=== PATIENT | male | born 1945 | race Caucasian/White ===

== ENCOUNTER 2016-09-14 11:28 | Inpatient (IN) | payer MEDICARE ==
[~2016-09-14] VITALS: Ht 157.5 cm; Wt 59.9 kg
[~2016-09-14 11:28] MED LIST: ALBU8.5H5 IH; AMLO-147 PO; ASP81 PO; ATOR80TA75 PO; BUDE6HFA IH; ISOS30TA5 PO; OMEP20CA16 PO; PROP40TA4 PO; SIMV10TA76 PO
--- NOTE | 2016-09-14 13:33 | ERA ---
ER Documentation Chief Complaint Date/Time DATE: 09/14/16 TIME: 13:32 Chief Complaint SYNCOPAL EPISODE TODAY WITH SOB HPI The patient is a 70-year-old male, presenting to the ER because of fainting and shortness of breath. He had 3 episodes of fainting last week and again this morning. He denies fever, chills, cough, neck pain, chest pain, palpitation, diaphoresis. He complains of chronic dyspnea, denies abdominal pain, vomiting, dysuria, diarrhea. He smoke a pack a day, denies drinking Past medical history: Dyslipidemia, hypertension, CAD, COPD, GERD, essential tremors, anemia Past surgical history: Appendectomy, hemorrhoidectomy ROS All systems reviewed and are negative except as per history of present illness. Medications Home Meds Active Scripts Isosorbide Mononitrate* (Isosorbide Mononitrate*) 30 Mg Tab.er.24h, 30 MG PO DAILY for 30 Days, 2 Refills Prov:KENIA SINGLETARY Hawa 06/19/16 Amlodipine Besylate* (Amlodipine Besylate*) 10 Mg Tablet, 10 MG PO DAILY for 30 Days, TAB 1 Refill Prov:HAYDERROHIT BourgeoisATRI[facility] . 06/19/16 Reported Medications Simvastatin* (Zocor*) 10 Mg Tablet, 10 MG PO HS, TAB 07/10/15 Budesonide-Formoterol Fumarate* (Symbicort*) 160-4.5 Hfa.aer.ad, 2 PUFF IH BID, INH 07/10/15 Albuterol Sulfate* (Albuterol Sulfate* HFA) 8.5 Gm Hfa.aer.ad, 2 PUFF IH Q4H Y for WHEEZING AND SOB, EA 07/10/15 Omeprazole* (Omeprazole*) 20 Mg Capsule.dr, 20 MG PO DAILY, CAP 07/10/15 Discontinued Scripts Propranolol Hcl* (Propranolol Hcl*) 40 Mg Tablet, 40 MG PO TID for 30 Days, TAB 1 Refill Prov:KENIA SINGLETARY Hawa 06/19/16 Atorvastatin* (Atorvastatin*) 80 Mg Tablet, 80 MG PO DAILY@21 for 30 Days, TAB 2 Refills Prov:ROHIT SINGLETARYATRI[facility] . 06/19/16 Aspirin (Aspirin) 81 Mg Chew, 81 MG PO DAILY for 30 Days, TAB 2 Refills Prov:KENIA SINGLETARYHawa 06/19/16 Allergies Allergies: Coded Allergies: Penicillins (Verified Allergy, Severe, ANAPHYLAXIS, 09/14/16) PMhx/Soc History of Surgery: No Anesthesia Reaction: No Hx Neurological Disorder: No Hx Respiratory Disorders: Yes (SOB) Hx Cardiac Disorders: Yes (HTN, HIGH CHOLESTEROL, CAD) Hx Psychiatric Problems: No Hx Miscellaneous Medical Probl: Yes (HTN, HLP, COPD, GERD.) Hx Alcohol Use: No Hx Substance Use: Yes (cocaine quit in the 90"s) Hx Tobacco Use: Yes Physical Exam Vitals Vital Signs Date Time Temp Pulse Resp B/P Pulse Ox O2 Delivery O2 Flow Rate FiO2 09/14/16 15:30 97.9 69 18 193/98 98 Room Air 09/14/16 14:07 88 22 97 21 09/14/16 13:47 68 20 178/89 98 Room Air 09/14/16 11:31 98.7 92 22 204/97 93 Physical Exam Const: No acute distress. Head: Atraumatic. Eyes: Normal Conjunctiva. ENT: Normal External Ears, Nose and Mouth. Neck: Full range of motion. No meningismus. Resp: Bilateral expiratory wheezes Cardio: Regular rate and rhythm, no murmurs. Abd: Soft, non distended, normal bowel sounds, non tender. Skin: No petechiae or rashes. Back: No midline or flank tenderness. Ext: No cyanosis, or edema. Neur: Awake and alert. No focal deficit Psych: Normal Mood and Affect. Result Diagram: 09/14/16 1344 09/14/16 1344 Results 24 hrs Laboratory Tests Test 09/14/16 13:44 09/14/16 14:15 09/14/16 15:13 09/14/16 15:32 Activated Partial Thromboplast Time 24.7Sec Anion Gap 28 Basophils # 0.010^3/ul Basophils % 0.4% Blood Morphology Comment Blood Urea Nitrogen 17mg/dl Calcium Level 8.8mg/dl Carbon Dioxide Level 20mmol/L Chloride Level 98mmol/L Creatinine 1.13mg/dl Eosinophils # 0.010^3/ul Eosinophils % 0.3% Ethyl Alcohol Level 65.0mg/dl Glucose Level 37mg/dl Hematocrit 40.3% Hemoglobin 13.6g/dl INR International Normalized Ratio 0.92 Lymphocytes # 1.410^3/ul Lymphocytes % 18.8% Mean Corpuscular Hemoglobin 34.0pg Mean Corpuscular Hemoglobin Concent 33.6g/dl Mean Corpuscular Volume 101.2fl Mean Platelet Volume 8.1fl Monocytes # 0.510^3/ul Monocytes % 6.2% Neutrophils # 5.510^3/ul Neutrophils % 74.3% Nucleated Red Blood Cells # 0.010^3/ul Nucleated Red Blood Cells % 0.0/100WBC Platelet Count 26682^3/UL Potassium Level 4.6mmol/L Prothrombin Time 12.4Sec Prothrombin Time Ratio 1.0 Red Blood Count 3.9810^6/ul Red Cell Distribution Width 15.0% Sodium Level 141mmol/L Troponin I 0.069ng/ml White Blood Count 7.410^3/ul Bedside Glucose 40mg/dL 148mg/dL Urine Amphetamines Screen NEGATIVE Urine Barbiturates NEGATIVE Urine Benzodiazepines Screen NEGATIVE Urine Cannabinoids NEGATIVE Urine Cocaine Screen NEGATIVE Urine Opiates Screen NEGATIVE Test 09/14/16 18:36 Bedside Glucose 97mg/dL Current Medications Medications (Trade) Dose Ordered Sig/Wally Route PRN Reason Start Time Stop Time Status Last Admin Dose Admin Levalbuterol (Xopenex Neb) 1.25 mg ONCE ONCE N 09/14/16 14:00 09/14/16 14:01 DC 09/14/16 14:06 Ipratropium [place] (Atrovent 0.02% (Neb)) 0.5 mg ONCE ONCE HHN 09/14/16 14:00 09/14/16 14:01 DC 09/14/16 14:06 Enalaprilat (Vasotec Iv) 1.25 mg ONCE ONCE IV 09/14/16 14:00 09/14/16 14:01 DC 09/14/16 14:03 Dextrose (D50w Syringe) 50 ml NOW PRN IV DECREASED GLUCOSE 09/14/16 14:30 09/14/16 14:18 IV Flush (NS 3 ml) 3 ml PER PROTOCOL IV 09/14/16 17:30 UNV Ondansetron HCl (Zofran Inj) 4 mg Q6H PRN IV NAUSEA AND/OR VOMITING 09/14/16 17:30 UNV Acetaminophen (Tylenol Tab) 650 mg Q6H PRN PO PAIN LEVEL 1-3 OR FEVER 09/14/16 17:30 UNV Acetaminophen/ Hydrocodone Bitart ([place] (5/325)) 1 tab Q6H PRN PO MODERATE PAIN LEVEL 4-6 09/14/16 17:30 UNV Morphine Sulfate (morphine) 2 mg Q4H PRN IV SEVERE PAIN LEVEL 7-10 09/14/16 17:30 UNV Docusate Sodium (Colace) 100 mg Q12H PRN PO CONSTIPATION 09/14/16 17:30 UNV Magnesium Hydroxide (Milk Of Mag) 30 ml DAILY PRN PO CONSTIPATION 09/14/16 17:30 UNV Sodium Biphosphate/ Sodium Phosphate (Fleet Enema) 133 ml DAILY PRN [place] CONSTIPATION 09/14/16 17:30 UNV Famotidine (Pepcid) 20 mg Q12 PO 09/14/16 21:00 UNV Heparin Sodium (Porcine) (Heparin (5000 Units/0.5 ml)) 5,000 unit Q12 SC 09/14/16 21:00 UNV Ondansetron HCl 4 mg 4 mg Q6H PRN IV NAUSEA AND/OR VOMITING 09/14/16 17:30 UNV Sodium Chloride (1/2 NS) 1,000 ml @ 75 mls/hr [id number] IV 09/14/16 17:21 UNV Lorazepam (Ativan) 0.5 mg Q6H PRN IV ANXIETY 09/14/16 17:30 UNV Albuterol/ Ipratropium (Duoneb) 3 ml Q4H RESP THERAPY PRN HHN SHORTNESS OF BREATH 09/14/16 17:30 UNV Hydralazine HCl (Apresoline) 10 mg Q6H PRN IV ELEVATED BLOOD PRESSURE 09/14/16 17:30 UNV Nitroglycerin (Nitroglycerin (Sl Tab) 0.4 Mg) 1 tab Q5M PRN SL ANGINA 09/14/16 17:30 UNV Albuterol (Ventolin Hfa) 2 puff Q4H PRN INH WHEEZING AND SOB 09/14/16 17:30 UNV Miscellaneous Information 2 puff BID IH 09/14/16 21:00 UNV Miscellaneous Information 10 mg HS PO 09/14/16 21:00 UNV Procedures/MDM EKG: Read by emergency physician Rate/Rhythm: Normal Sinus Rhythm 77 beats per min QRS, ST, T-waves: No ST elevation, no T wave inversion, shortened [place] interval , inferior and lateral t abnormality Impression: Abnormal EKG [place] [id number] Radiology Main Line: [phone] DIAGNOSTIC IMAGING REPORT Patient: KERRIE SCHAEFER : 1945 Age: 70 Sex: M MR #: [id number] DOS: 09/14/16 1339 Ordering MD: ORTEGA HUGHES MD Location: E/R Room/Bed: PROCEDURE: CT Brain without. CLINICAL INDICATION: Syncope. TECHNIQUE: A CT of the brain was performed on multidetector high-resolution CT scanner utilizing axial sections from the skull base through the vertex without contrast. The scan was reviewed in soft tissue brain and high frequency resolution bone algorithm windows. Images were reviewed on a high- resolution PACS workstation. The exam CTDI = 44.4 mGy and the DLP = 720.23 mGy- cm. COMPARISON: None available. FINDINGS: The ventricles and sulci are mildly prominent indicative of volume loss. There is no intracranial hemorrhage, mass effect or midline shift. No abnormal intra- axial or extra-axial fluid collections are seen. The degroot/white matter differentiation is preserved. There are mild scattered foci of hypoattenuation in the white matter, which are nonspecific in etiology but likely reflect chronic small vessel ischemic changes. Small hypodense focus is noted in right lentiform nucleus which likely represent dilated perivascular space versus old lacunar infarct. There are mild intracranial vascular calcifications consistent with atherosclerosis. The visualized paranasal sinuses are essentially clear. IMPRESSION: 1. No acute intracranial hemorrhage, transcortical infarction or mass effect. 2. Mild intracranial atherosclerosis and chronic small vessel ischemic changes. 3. Right lentiform nucleus dilated perivascular space versus old lacunar infarct. 4. Mild generalized cerebral volume loss. RPTAT: HH .Van Bower MD, MD Date Time Electronically viewed and signed by .Van Bower MD, MD on 09/14/2016 14: 59 .N/ CC: ORTEGA HUGHES MD MEDICAL MAKING DECISION: The patient is a 70-year-old male, presenting to the ER because of acute syncope of unclear etiology, acute hypoglycemia. Random glucose was 40 in the ER, he was treated with 1 amp of D50 IV for acute hypokalemia, Xopenex 1.25 mg, Atrovent 0.5 mg for wheezing, Vasotec 1.l25 mg IV for acute accelerated hypertension with good response. The differential diagnoses considered include but are not limited to hypoglycemia, bradyarrhythmia, tachyarrhythmias, aortic outflow obstruction, neurogenic including subarachnoid hemorrhage, orthostatic hypotension and all of its causes , hypoglycemia, dysautonomia, medications. Departure Diagnosis: Primary Impression: Syncope Additional Impressions: Hypoglycemia Anemia Hypertension, accelerated Condition: Stable Comments I discussed the findings with the patient. I discussed the patient with the on- call hospitalist Dr. Shepherd who was made aware of the lab, the treatment, the patient condition. The patient is admitted to telemetry at 3:15 PM for 24 hours observation ORTEGA HUGHES MD Sep 14, 2016 13:33
[2016-09-14 13:53] LABS: BASOPHILS % 0.4 % (0.0-2.0); EOSINOPHILS % 0.3 % (0.0-7.0); HEMATOCRIT 40.3 % (42.0-52.0); HEMOGLOBIN 13.6 g/dl (14.0-18.0); LYMPHOCYTES # 1.4 10^3/ul (0.8-2.9); LYMPHOCYTES % 18.8 % (15.0-51.0); MEAN CORPUSCULAR HGB CONC 33.6 g/dl (32.0-37.0); MEAN CORPUSCULAR VOLUME 101.2 fl (82.0-101.0); MEAN PLATELET VOLUME 8.1 fl (7.4-10.4); MONOCYTE # 0.5 10^3/ul (0.3-0.9); MONOCYTES % 6.2 % (0.0-11.0); NEUTROPHIL # 5.5 10^3/ul (1.6-7.5); NEUTROPHILS % 74.3 % (39.0-77.0); PLATELET COUNT 110 10^3/UL (140-440); RED BLOOD COUNT 3.98 10^6/ul (4.70-6.10); UNCORRECTED WBC 7.4 10^3/ul (4.8-10.8); WHITE BLOOD COUNT 7.4 10^3/ul (4.8-10.8)
[2016-09-14 13:55] LABS: CONDITION 1; LH ANALYZER COMMENTS 1
[2016-09-14 14:00] LABS: INR 0.92; PARTIAL THROMBOPLASTIN TIME 24.7 Sec (25.0-35.0); PROTIME 12.4 Sec (12.2-14.2)
[2016-09-14] MEDS ORDERED: IPRATROPIUM (NEB) 0.5 MG/2.5 ML AMP HHN ONE (14:00)
[2016-09-14] MEDS ORDERED: LEVALBUTEROL (NEB) 1.25 MG/0.5 ML AMP HHN ONE (14:00)
[2016-09-14] MEDS ORDERED: ENALAPRILAT 1.25 MG INJ IV ONE (14:00)
[2016-09-14 14:01] LABS: POTASSIUM 4.6 mmol/L (3.5-5.1)
[2016-09-14 14:03] LABS: CREATININE 1.13 mg/dl (0.61-1.24)
[2016-09-14 14:04] LABS: CALCIUM 8.8 mg/dl (8.4-10.2)
[2016-09-14 14:16] LABS: TROPONIN-I 0.069 ng/ml (0.00-0.12)
[2016-09-14] MEDS ORDERED: DEXTROSE 50% 50 ML SYRINGE IV PRN (14:30)
--- NOTE | 2016-09-14 15:00 | RADRPT ---
PROCEDURE: CT Brain without. CLINICAL INDICATION: Syncope. TECHNIQUE: A CT of the brain was performed on multidetector high-resolution CT scanner utilizing a xial sections from the skull base through the vertex without contrast. The scan was reviewed in sof t tissue brain and high frequency resolution bone algorithm windows. Images were reviewed on a high -resolution PACS workstation. The exam CTDI = 44.4 mGy and the DLP = 720.23 mGy-cm. COMPARISON: None available. FINDINGS: The ventricles and sulci are mildly prominent indicative of volume loss. There is no intracranial he morrhage, mass effect or midline shift. No abnormal intra-axial or extra-axial fluid collections ar e seen. The degroot/white matter differentiation is preserved. There are mild scattered foci of hypoattenuation in the white matter, which are nonspecific in etiol ogy but likely reflect chronic small vessel ischemic changes. Small hypodense focus is noted in righ t lentiform nucleus which likely represent dilated perivascular space versus old lacunar infarct. Th ere are mild intracranial vascular calcifications consistent with atherosclerosis. The visualized pa ranasal sinuses are essentially clear. IMPRESSION: 1. No acute intracranial hemorrhage, transcortical infarction or mass effect. 2. Mild intracranial atherosclerosis and chronic small vessel ischemic changes. 3. Right lentiform nucleus dilated perivascular space versus old lacunar infarct. 4. Mild generalized cerebral volume loss. RPTAT: HH .Van Bower MD, MD Date Time Electronically viewed and signed by .Van Bower MD, MD on 09/14/2016 14:59 .N/
--- NOTE | 2016-09-14 15:07 | RADRPT ---
PROCEDURE: Chest Radiograph. CLINICAL INDICATION: Syncope TECHNIQUE: Single frontal chest radiograph. COMPARISON: Chest radiograph 06/17/2016 FINDINGS: The cardiomediastinal silhouette is within normal limits. No infiltrate or effusion is seen. Th e bones are intact. IMPRESSION: No evidence of acute cardiopulmonary disease. RPTAT: KK .Kavin Gonzalez MD, MD Date Time Electronically viewed and signed by .Kavin Gonzalez MD, on 09/14/2016 15:06 .B/
[2016-09-14 16:29] LABS: BARBITURATES NEGATIVE (NEGATIVE); BENZODIAZEPINES NEGATIVE (NEGATIVE); CANNABINOIDS NEGATIVE (NEGATIVE); COCAINE NEGATIVE (NEGATIVE); OPIATES NEGATIVE (NEGATIVE)
[2016-09-14] MEDS ORDERED: ACETAMINOPHEN 325 MG TAB PO PRN (17:30)
[2016-09-14] MEDS ORDERED: LORAZEPAM 2 MG INJ IV PRN (17:30)
[2016-09-14] MEDS ORDERED: DOCUSATE SODIUM 100 MG CAP PO PRN (17:30)
[2016-09-14] MEDS ORDERED: HYDROCODONE/APAP (5/325) TAB PO PRN (17:30)
[2016-09-14] MEDS ORDERED: NITROGLYCERIN (SL) 0.4 MG TAB SL PRN (17:30)
[2016-09-14] MEDS ORDERED: ONDANSETRON 4 MG INJ IV PRN ×2 (17:30)
[2016-09-14] MEDS ORDERED: NA PHOSPHATE/BIPHOS 133 ML ENEMA PR PRN (17:30)
[2016-09-14] MEDS ORDERED: ALBUTEROL 18 GM INHALER INH PRN (17:30)
[2016-09-14] MEDS ORDERED: NACL 0.9% 3 ML SYG IV SCH (17:30)
--- NOTE | 2016-09-14 19:58 | HP ---
DATE OF ADMISSION: 09/14/2016 CHIEF COMPLAINT: Syncope. HISTORY OF PRESENT ILLNESS: A 70-year-old male with past medical history of CAD, COPD, essential tr emor, GERD, anemia, high cholesterol who presents after experiencing a syncopal event at home. Appa rently, the patient states he felt dizzy for a few seconds right before passing out. Denied any sig nificant chest pain or palpitations. When he woke up, he was by himself. He says he thinks he was only out for a few minutes, but denied any tongue biting, no leakage of any urine or stool. He also had some mild shortness of breath symptoms. No nausea, vomiting. No fevers or chills. No palpita tions. Again, no chest pain. He is having some mild headache symptoms as well. No upper or lower GI bleeding as well. When he came in today, he was found with low blood sugars of 40 and was given sugar supplementation in the ER and his sugars improved. The patient was recently here at our [facility] from 06/17/2016 to 06/18/2016 and was admitted for chest pain and ruled out for acute coronary s yndrome at that time. PAST MEDICAL HISTORY: As stated above. ALLERGIES: PENICILLIN. MEDICATIONS AT HOME: 1. Albuterol 2 puffs inhaled q.4h. p.r.n. 2. Amlodipine 10 mg daily. 3. Imdur 30 mg daily. 4. Zocor 10 mg at bedtime. 5. Symbicort 2 puffs inhaled b.i.d. 6. Omeprazole 20 mg daily. PAST SURGICAL HISTORY: Appendectomy and hemorrhoidectomy in the past. FAMILY HISTORY: Noncontributory. SOCIAL HISTORY: Smokes 1 pack of cigarettes a day. He has been doing that for the last 50 years. Former cocaine user, quit in the . No alcohol abuse. PHYSICAL EXAMINATION: VITAL SIGNS: T-max 98.7, pulse 69 to 92, respirations 18 to 22, blood pressures is 204 to 178 systo lic over 97 to 89 diastolic, saturating at 98% on room air. GENERAL: The patient is lying in bed, answering questions appropriately. Essential tremors noted, but otherwise no acute distress. HEENT: Pupils equal, round, react to light. Extraocular muscles intact. NECK: Supple. No thyromegaly. LUNGS: Mild wheezes bilaterally in the bases. No rhonchi. CARDIOVASCULAR: S1, S2 heard. No rubs or gallops. ABDOMEN: Soft, nontender, nondistended. Normal bowel sounds. No rebound or guarding. MUSCULOSKELETAL: No lower extremity edema bilaterally. NEUROLOGIC: No focal deficits. LABORATORIES: WBC 7.4, hemoglobin 13.6, hematocrit 40.3, platelets of 110. His basic metabolic saxena el essentially normal, except again the sugar was 37. Troponin is negative. Head CT: No acute intracranial hemorrhages, transcortical infarctions, or mass effect. Chest x-ray : No evidence of any acute cardiopulmonary disease. ASSESSMENT AND PLAN: A 70-year-old male coming in with a syncopal event with low blood sugars. 1. Syncope. Admit him to telemetry floor. Will get an EKG and a 2D echocardiogram as well. Do ne uro checks every 4 hours. I have a low suspicion for stroke as well. Get PT and OT consults as johana nino. Go through his medication list very thoroughly as well. Check his A1c. Check TSH and lipid saxena el as well. 2. Chronic obstructive pulmonary disease. He is on DuoNebs p.r.n. as well. Monitor for any signs of any shortness of breath. 3. Coronary artery disease. Blood pressure was high when he came in. Continue hydralazine p.r.n. We ae holding his other home blood pressure medicines for now until we can further check his echoca rdiogram. 4. History of hypertension. Again, see #2. 5. Gastroesophageal reflux disease. He is on an H2 dacia. 6. Deep venous thrombosis prophylaxis. Heparin subcutaneously. 7. Essential tremors. Continue to monitor for now. Dictated By: NITIN ALLRED Conf#: [id number] DID#: [id number]
[2016-09-14] MEDS ORDERED: NON-FORMULARY/PATIENT OWN MED (Budesonide-Formoterol Fumarate* (Symbicort*) 2 PUFF) IH SCH (21:00)
[2016-09-14] MEDS ORDERED: NON-FORMULARY/PATIENT OWN MED (Simvastatin* (Zocor*) 10 MG) PO SCH (21:00)
[2016-09-14] MEDS: ATORVASTATIN 10 MG TAB PO SCH (21:47)
[2016-09-14] MEDS: FAMOTIDINE 20 MG TAB PO SCH (21:47)
[2016-09-14] MEDS: HEPARIN 5,000 UNIT/0.5 ML SYG SC SCH (21:50)
[2016-09-15] VITALS (11 sets, daily range): BP systolic 156–196; BP diastolic 81–96; PULSE 57–84; RESP 18–22; TEMP 98; Ht 157.5 cm; Wt 59.9 kg
[2016-09-15 05:49] LABS: BASOPHILS % 0.2 % (0.0-2.0); EOSINOPHILS # 0.1 10^3/ul (0.0-0.5); EOSINOPHILS % 1.8 % (0.0-7.0); HEMATOCRIT 39.4 % (42.0-52.0); HEMOGLOBIN 13.4 g/dl (14.0-18.0); LYMPHOCYTES # 1.5 10^3/ul (0.8-2.9); LYMPHOCYTES % 24.7 % (15.0-51.0); MEAN CORPUSCULAR HEMOGLOBIN 34.4 pg (29.0-33.0); MEAN CORPUSCULAR HGB CONC 33.9 g/dl (32.0-37.0); MEAN CORPUSCULAR VOLUME 101.4 fl (82.0-101.0); MEAN PLATELET VOLUME 8.4 fl (7.4-10.4); MONOCYTE # 0.4 10^3/ul (0.3-0.9); MONOCYTES % 6.8 % (0.0-11.0); NEUTROPHILS % 66.5 % (39.0-77.0); PLATELET COUNT 85 10^3/UL (140-440); RED BLOOD COUNT 3.88 10^6/ul (4.70-6.10); RED CELL DISTRIBUTION WIDTH 14.5 % (11.5-14.5)
[2016-09-15 06:04] LABS: CONDITION 1; LH ANALYZER COMMENTS 1
[2016-09-15 06:16] LABS: CHOL/HDL RATIO 1.8 RATIO; POTASSIUM 4.3 mmol/L (3.5-5.1)
[2016-09-15 06:19] LABS: CREATININE 1.14 mg/dl (0.61-1.24); MAGNESIUM 1.5 mg/dl (1.7-2.5); PHOSPHORUS 2.4 mg/dl (2.5-4.9)
[2016-09-15 06:46] LABS: THYROID STIMULATING HORMONE 2.35 MIU/L (0.465-4.680)
[2016-09-15] MEDS: FAMOTIDINE 20 MG TAB PO SCH ×2 (09:04→21:10)
[2016-09-15] MEDS: SOD CHLORIDE 0.45% 1,000 ML IV SCH ×3 (09:05→21:12)
[2016-09-15] MEDS: HEPARIN 5,000 UNIT/0.5 ML SYG SC SCH ×2 (09:13→21:15)
[2016-09-15] MEDS ORDERED: ALBUTEROL HFA 8 GM INHALER INH PRN (09:30)
--- NOTE | 2016-09-15 10:38 | PN ---
Date/Time of Note Date/Time of Note DATE: 09/15/16 TIME: 10:35 Assessment/Plan VTE Prophylaxis VTE Prophylaxis Intervention: heparin Assessment/Plan Chief Complaint/Hosp Course ASSESSMENT AND PLAN: 70-year-old male coming in with a syncopal event with low blood sugars. 1. Syncope - I have a low suspicion for stroke as well. -continue telemetry floor, f/u EKG and a 2D echocardiogram (pending) - neuro checks every 4 hours. - df/u PT and OT consults as well. Go through his medication list very thoroughly as well. 2. Chronic obstructive pulmonary disease. He is on DuoNebs p.r.n. as well. Monitor for any signs of any shortness of breath. 3. Coronary artery disease. Blood pressure was high when he came in. Continue hydralazine p.r.n. We ae holding his other home blood pressure medicines for now until we can further check his echocardiogram. 4. History of hypertension. Again, see #2. 5. Gastroesophageal reflux disease. He is on an H2 dacia. 6. Deep venous thrombosis prophylaxis. Heparin subcutaneously. 7. Essential tremors. Continue to monitor for now. 8. low sugars - A1c = 5.1 - will get endo consult Problems: Subjective 24 Hr Interval Summary Free Text/Dictation No acute events overnight, waiting for ECHO. Exam/Review of Systems Vital Signs Vitals Vital Signs Date Time Temp Pulse Resp B/P Pulse Ox O2 Delivery O2 Flow Rate FiO2 09/15/16 08:56 57 09/15/16 07:40 98.2 22 168/87 96 09/15/16 06:38 Room Air 09/14/16 14:07 21 Exam GENERAL: The patient is lying in bed, answering questions appropriately. Essential tremors noted, but otherwise no acute distress. HEENT: Pupils equal, round, react to light. Extraocular muscles intact. NECK: Supple. No thyromegaly. LUNGS: Mild wheezes bilaterally in the bases. No rhonchi. CARDIOVASCULAR: S1, S2 heard. No rubs or gallops. ABDOMEN: Soft, nontender, nondistended. Normal bowel sounds. No rebound or guarding. MUSCULOSKELETAL: No lower extremity edema bilaterally. NEUROLOGIC: No focal deficits. Results Result Diagram: 09/15/16 0521 09/15/16 0521 Results 24 hrs Laboratory Tests Test 09/14/16 13:44 09/14/16 14:15 09/14/16 15:13 09/14/16 15:32 Activated Partial Thromboplast Time 24.7 L Anion Gap 28 H Basophils # 0.0 Basophils % 0.4 Blood Morphology Comment Blood Urea Nitrogen 17 Calcium Level 8.8 Carbon Dioxide Level 20 L Chloride Level 98 Creatinine 1.13 Eosinophils # 0.0 Eosinophils % 0.3 Ethyl Alcohol Level 65.0 Glucose Level 37 *L Hematocrit 40.3 L Hemoglobin 13.6 L INR International Normalized Ratio 0.92 Lymphocytes # 1.4 Lymphocytes % 18.8 Mean Corpuscular Hemoglobin 34.0 H Mean Corpuscular Hemoglobin Concent 33.6 Mean Corpuscular Volume 101.2 H Mean Platelet Volume 8.1 Monocytes # 0.5 Monocytes % 6.2 Neutrophils # 5.5 Neutrophils % 74.3 Nucleated Red Blood Cells # 0.0 Nucleated Red Blood Cells % 0.0 Platelet Count 110 L Potassium Level 4.6 Prothrombin Time 12.4 Prothrombin Time Ratio 1.0 Red Blood Count 3.98 L Red Cell Distribution Width 15.0 H Sodium Level 141 Troponin I 0.069 White Blood Count 7.4 # Bedside Glucose 40 *L 148 Urine Amphetamines Screen NEGATIVE Urine Barbiturates NEGATIVE Urine Benzodiazepines Screen NEGATIVE Urine Cannabinoids NEGATIVE Urine Cocaine Screen NEGATIVE Urine Opiates Screen NEGATIVE Test 09/14/16 18:36 09/14/16 19:20 09/15/16 05:21 09/15/16 07:09 Bedside Glucose 97 78 Free Thyroxine 1.07 Anion Gap 19 #H Basophils # 0.0 Basophils % 0.2 Blood Morphology Comment Blood Urea Nitrogen 17 Calcium Level 9.0 Carbon Dioxide Level 26 Chloride Level 98 Cholesterol Level 181 Cholesterol/HDL Ratio 1.8 Creatinine 1.14 Eosinophils # 0.1 Eosinophils % 1.8 Glucose Level 68 #L HDL Cholesterol 96 H Hematocrit 39.4 L Hemoglobin 13.4 L Hemoglobin A1c 5.1 LDL Cholesterol, Calculated 67 Lymphocytes # 1.5 Lymphocytes % 24.7 Magnesium Level 1.5 L Mean Corpuscular Hemoglobin 34.4 H Mean Corpuscular Hemoglobin Concent 33.9 Mean Corpuscular Volume 101.4 H Mean Platelet Volume 8.4 Monocytes # 0.4 Monocytes % 6.8 Neutrophils # 4.0 Neutrophils % 66.5 Nucleated Red Blood Cells # 0.0 Nucleated Red Blood Cells % 0.0 Phosphorus Level 2.4 L Platelet Count 85 #L Potassium Level 4.3 Red Blood Count 3.88 L Red Cell Distribution Width 14.5 Sodium Level 139 Thyroid Stimulating Hormone (TSH) 2.350 Triglycerides Level 88 White Blood Count 6.0 Medications Medications Current Medications Ondansetron HCl (Zofran Inj) 4 mg Q6H PRN IV NAUSEA AND/OR VOMITING; Start at 17:30 Acetaminophen (Tylenol Tab) 650 mg Q6H PRN PO PAIN LEVEL 1-3 OR FEVER; Start 09/14/16 at 17:30 Acetaminophen/ Hydrocodone Bitart ([place] (5/325)) 1 tab Q6H PRN PO MODERATE PAIN LEVEL 4-6; Start 09/14/16 at 17:30 Morphine Sulfate (morphine) 2 mg Q4H PRN IV SEVERE PAIN LEVEL 7-10; Start at 17:30 Docusate Sodium (Colace) 100 mg Q12H PRN PO CONSTIPATION; Start 09/14/16 at 17 :30 Magnesium Hydroxide (Milk Of Mag) 30 ml DAILY PRN PO CONSTIPATION; Start 09/14 at 17:30 Sodium Biphosphate/ Sodium Phosphate (Fleet Enema) 133 ml DAILY PRN [place] CONSTIPATION; Start 09/14/16 at 17:30 Famotidine (Pepcid) 20 mg Q12 PO Last administered on 09/15/16at 09:04; Admin Dose 20 MG; Start 09/14/16 at 21:00 Heparin Sodium (Porcine) 5000 unit 5,000 unit Q12 SC Last administered on 09/15at 09:13; Admin Dose 5,000 UNIT; Start 09/14/16 at 21:00 Sodium Chloride (1/2 NS) 1,000 ml @ 75 mls/hr [id number] IV Last administered on 09/15/16at 09:18; Admin Dose 75 MLS/HR; Start 09/14/16 at 17:21 Lorazepam (Ativan) 0.5 mg Q6H PRN IV ANXIETY; Start 09/14/16 at 17:30 Hydralazine HCl (Apresoline) 10 mg Q6H PRN IV ELEVATED BLOOD PRESSURE; Start 09/14/16 at 17:30 Nitroglycerin (Nitroglycerin (Sl Tab) 0.4 Mg) 1 tab Q5M PRN SL ANGINA; Start 09/14/16 at 17:30 Albuterol (Ventolin Hfa) 2 puff Q4H PRN INH WHEEZING AND SOB; Start 09/14/16 at 17:30 Atorvastatin Calcium (Lipitor) 5 mg DAILY@21 PO Last administered on at 21:47; Admin Dose 5 MG; Start 09/14/16 at 21:00 Salmeterol Xinafoate/ Fluticasone (Advair 250/50 Diskus) 1 inh BID INH ; Start 09/15/16 at 09:00 Albuterol 2 puff 2 puff Q4H PRN INH RESP DISTRESS/SOB/ETC......; Start at 09:30 Magnesium Sulfate 50 ml @ 25 mls/hr ONCE ONCE IVPB ; Start 09/15/16 at 10:50; Stop 09/15/16 at 12:49 Sodium Phosphate/ Sodium Chloride (Sodium Phosphate/NS) 255 ml @ 63.75 mls/ hr ONCE ONCE IVPB ; Start 09/15/16 at 11:30; Stop 09/15/16 at 15:29 NITIN CORTEZ Sep 15, 2016 10:38
[2016-09-15] MEDS: SALMETEROL/FLUTICASONE 250/50 INHA INH SCH ×2 (10:46→21:11)
[2016-09-15] MEDS ORDERED: MAGNESIUM SULFATE 2 GM/50 ML 50 ML IVPB ONE (10:50)
[2016-09-15] MEDS ORDERED: SODIUM PHOSPHATE 20 MEQ in SOD CHLORIDE 0.9% 250 ML IVPB ONE (11:30)
[2016-09-15] MEDS ORDERED: METOPROLOL (XL) 25 MG TAB PO ONE (14:00)
[2016-09-15] MEDS: THIAMINE 100 MG TAB PO SCH (14:47)
[2016-09-15 17:03] LABS: FOLATE 7.2 ng/ml (2.8-20.0)
[2016-09-15] MEDS ORDERED: COSYNTROPIN 0.25 MG INJ IV ONE (20:30)
[2016-09-15] MEDS: ATORVASTATIN 10 MG TAB PO SCH (21:10)
[2016-09-15] MEDS: hydrALAzine 20 MG INJ IV PRN (23:04)
[2016-09-15] MEDS: LORAZEPAM 2 MG INJ IV PRN (23:04)
[2016-09-15] MEDS: CHLORDIAZEPOXIDE 5 MG CAP PO SCH (23:04)
[2016-09-16] VITALS (15 sets, daily range): BP systolic 114–171; BP diastolic 64–93; PULSE 71–111; RESP 15–22
[2016-09-16] MEDS ORDERED: LORAZEPAM 2 MG INJ IV ONE (01:11)
[2016-09-16 07:52] LABS: MAGNESIUM 1.8 mg/dl (1.7-2.5); PHOSPHORUS 4.5 mg/dl (2.5-4.9)
[2016-09-16] MEDS: ALBUTEROL/IPRATROPIUM (NEB) 3 ML AMP HHN PRN (08:30)
[2016-09-16 08:38] LABS: BASOPHILS % 0.7 % (0.0-2.0); EOSINOPHILS % 0.5 % (0.0-7.0); HEMATOCRIT 37.5 % (42.0-52.0); HEMOGLOBIN 12.8 g/dl (14.0-18.0); LYMPHOCYTES # 1.2 10^3/ul (0.8-2.9); LYMPHOCYTES % 27.3 % (15.0-51.0); MEAN CORPUSCULAR HEMOGLOBIN 34.3 pg (29.0-33.0); MEAN CORPUSCULAR VOLUME 100.9 fl (82.0-101.0); MEAN PLATELET VOLUME 8.8 fl (7.4-10.4); MONOCYTE # 0.4 10^3/ul (0.3-0.9); MONOCYTES % 9.8 % (0.0-11.0); NEUTROPHIL # 2.8 10^3/ul (1.6-7.5); NEUTROPHILS % 61.7 % (39.0-77.0); PLATELET COUNT 65 10^3/UL (140-440); RED BLOOD COUNT 3.72 10^6/ul (4.70-6.10); RED CELL DISTRIBUTION WIDTH 14.8 % (11.5-14.5); UNCORRECTED WBC 4.5 10^3/ul (4.8-10.8); WHITE BLOOD COUNT 4.5 10^3/ul (4.8-10.8)
[2016-09-16 08:52] LABS: POTASSIUM 3.9 mmol/L (3.5-5.1)
[2016-09-16 08:54] LABS: CREATININE 1.01 mg/dl (0.61-1.24)
[2016-09-16 08:55] LABS: CALCIUM 8.8 mg/dl (8.4-10.2)
[2016-09-16 08:56] LABS: CONDITION 1; LH ANALYZER COMMENTS 1
[2016-09-16] MEDS: MULTIVITAMINS 10 ML, THIAMINE 100 MG, FOLIC ACID 1 MG in SOD CHLORIDE 0.9% 1,000 ML IVPB SCH (09:07)
[2016-09-16] MEDS: FOLIC ACID 1 MG TAB PO SCH (09:07)
[2016-09-16] MEDS: FAMOTIDINE 20 MG TAB PO SCH ×2 (09:08→20:14)
[2016-09-16] MEDS: THIAMINE 100 MG TAB PO SCH (09:08)
[2016-09-16] MEDS: CHLORDIAZEPOXIDE 5 MG CAP PO SCH (09:08)
[2016-09-16] MEDS: LORAZEPAM 2 MG INJ IV PRN ×5 (09:08→22:22)
[2016-09-16] MEDS: CYANOCOBALAMIN 500 MCG TAB PO SCH (09:08)
[2016-09-16] MEDS: AMLODIPINE 10 MG TAB PO SCH (09:09)
[2016-09-16] MEDS: METOPROLOL (XL) 25 MG TAB PO SCH (09:09)
[2016-09-16] MEDS: NICOTINE (21 MG/24 HR) PATCH TRANSDERM SCH (09:12)
[2016-09-16] MEDS: HEPARIN 5,000 UNIT/0.5 ML SYG SC SCH ×2 (09:14→20:19)
[2016-09-16] MEDS: SOD CHLORIDE 0.45% 1,000 ML IV SCH ×2 (09:21→20:22)
[2016-09-16] MEDS: ISOSORBIDE MONONITRATE(SR)30 MG TAB PO SCH (09:22)
[2016-09-16] MEDS: SALMETEROL/FLUTICASONE 250/50 INHA INH SCH ×2 (09:23→20:14)
[2016-09-16 10:40] LABS: ANISOCYTOSIS 1+; PLATELET ESTIMATE PLT APPEAR DECREASED
--- NOTE | 2016-09-16 11:28 | PN ---
Date/Time of Note Date/Time of Note DATE: 09/16/16 TIME: 11:27 Assessment/Plan VTE Prophylaxis VTE Prophylaxis Intervention: heparin Lines/Catheters IV C[facility]ter Type (from [facility]): Peripheral IV Assessment/Plan Chief Complaint/Hosp Course ASSESSMENT AND PLAN: 70-year-old male coming in with a syncopal event with low blood sugars. 1. Syncope - I have a low suspicion for stroke as well. EtOH levels elevated and pt showing signs of alcohol withdrawal, so this is probable source of his smpts -continue telemetry floor - bananna bag, increase librium, ativan prn - neuro checks every 4 hours. - df/u PT and OT consults as well. 2. Chronic obstructive pulmonary disease. He is on DuoNebs p.r.n. as well. Monitor for any signs of any shortness of breath. 3. Coronary artery disease. Blood pressure was high when he came in. Continue hydralazine p.r.n. We ae holding his other home blood pressure medicines for now until we can further check his echocardiogram. 4. History of hypertension. Again, see #2. 5. Gastroesophageal reflux disease. He is on an H2 dacia. 6. Deep venous thrombosis prophylaxis. Heparin subcutaneously. 7. Essential tremors. Continue to monitor for now. 8. low sugars - A1c = 5.1 Sugars stable. - f/u endo consult rec's Problems: Subjective 24 Hr Interval Summary Free Text/Dictation Pt in restraints, trying to get out of bed now. Seen by endo team yesterday. Exam/Review of Systems Vital Signs Vitals Vital Signs Date Time Temp Pulse Resp B/P Pulse Ox O2 Delivery O2 Flow Rate FiO2 09/16/16 10:54 98.0 92 19 148/86 95 09/16/16 08:30 Nasal Cannula 3.0 32 Intake and Output 09/15/16 09/15/16 09/16/16 15:00 23:00 07:00 Intake Total 1460 ml 750 ml Output Total 36 ml Balance -36 ml 1460 ml 750 ml Exam GENERAL: The patient is lying in bed, agitated, in restraints HEENT: Pupils equal, round, react to light. Extraocular muscles intact. NECK: Supple. No thyromegaly. LUNGS: Mild wheezes bilaterally in the bases. No rhonchi. CARDIOVASCULAR: S1, S2 heard. No rubs or gallops. ABDOMEN: Soft, nontender, nondistended. Normal bowel sounds. No rebound or guarding. MUSCULOSKELETAL: No lower extremity edema bilaterally. NEUROLOGIC: No focal deficits. Results Result Diagram: 09/16/16 0715 09/16/16 0715 Results 24 hrs Laboratory Tests Test 09/15/16 12:23 09/15/16 15:00 09/15/16 21:05 09/15/16 21:35 Bedside Glucose 133 Folate 7.2 Hepatitis B Surface Antigen NEGATIVE Hepatitis C Antibody NEGATIVE Random Cortisol 11.0 7.4 17.5 Rapid Plasma Reagin NONREACTIVE Vitamin B12 Level 374 Test 09/15/16 22:05 09/16/16 07:15 09/16/16 07:48 Random Cortisol 24.5 Anion Gap 19 H Anisocytosis 1+ Basophils # 0.0 Basophils % 0.7 Blood Morphology Comment Blood Urea Nitrogen 14 Calcium Level 8.8 Carbon Dioxide Level 23 Chloride Level 100 Creatinine 1.01 Differential Comment AUTO w/SCAN Eosinophils # 0.0 Eosinophils % 0.5 Glucose Level 91 Hematocrit 37.5 L Hemoglobin 12.8 L Lymphocytes # 1.2 Lymphocytes % 27.3 Magnesium Level 1.8 Mean Corpuscular Hemoglobin 34.3 H Mean Corpuscular Hemoglobin Concent 34.0 Mean Corpuscular Volume 100.9 Mean Platelet Volume 8.8 Monocytes # 0.4 Monocytes % 9.8 Neutrophils # 2.8 Neutrophils % 61.7 Nucleated Red Blood Cells # 0.0 Nucleated Red Blood Cells % 0.0 Phosphorus Level 4.5 # Platelet Count 65 #L Platelet Estimate PLT APPEAR DECREASED Potassium Level 3.9 Red Blood Count 3.72 L Red Cell Distribution Width 14.8 H Sodium Level 138 White Blood Count 4.5 #L Bedside Glucose 81 Medications Medications Current Medications Ondansetron HCl (Zofran Inj) 4 mg Q6H PRN IV NAUSEA AND/OR VOMITING; Start at 17:30 Acetaminophen (Tylenol Tab) 650 mg Q6H PRN PO PAIN LEVEL 1-3 OR FEVER; Start 09/14/16 at 17:30 Acetaminophen/ Hydrocodone Bitart ([place] (5/325)) 1 tab Q6H PRN PO MODERATE PAIN LEVEL 4-6; Start 09/14/16 at 17:30 Morphine Sulfate (morphine) 2 mg Q4H PRN IV SEVERE PAIN LEVEL 7-10; Start at 17:30 Docusate Sodium (Colace) 100 mg Q12H PRN PO CONSTIPATION; Start 09/14/16 at 17 :30 Magnesium Hydroxide (Milk Of Mag) 30 ml DAILY PRN PO CONSTIPATION; Start 09/14 at 17:30 Sodium Biphosphate/ Sodium Phosphate (Fleet Enema) 133 ml DAILY PRN [place] CONSTIPATION; Start 09/14/16 at 17:30 Famotidine (Pepcid) 20 mg Q12 PO Last administered on 09/16/16at 09:08; Admin Dose 20 MG; Start 09/14/16 at 21:00 Heparin Sodium (Porcine) 5000 unit 5,000 unit Q12 SC Last administered on 09/16at 09:14; Admin Dose 5,000 UNIT; Start 09/14/16 at 21:00 Sodium Chloride (1/2 NS) 1,000 ml @ 75 mls/hr [id number] IV Last administered on 09/16/16at 09:21; Admin Dose 75 MLS/HR; Start 09/14/16 at 17:21 Hydralazine HCl (Apresoline) 10 mg Q6H PRN IV ELEVATED BLOOD PRESSURE Last administered on 09/15/16at 23:04; Admin Dose 10 MG; Start 09/14/16 at 17:30 Nitroglycerin (Nitroglycerin (Sl Tab) 0.4 Mg) 1 tab Q5M PRN SL ANGINA; Start 09/14/16 at 17:30 Albuterol (Ventolin Hfa) 2 puff Q4H PRN INH WHEEZING AND SOB; Start 09/14/16 at 17:30 Atorvastatin Calcium (Lipitor) 5 mg DAILY@21 PO Last administered on at 21:10; Admin Dose 5 MG; Start 09/14/16 at 21:00 Salmeterol Xinafoate/ Fluticasone (Advair 250/50 Diskus) 1 inh BID INH Last administered on 09/16/16at 09:23; Admin Dose 1 INH; Start 09/15/16 at 09:00 Albuterol (Ventolin Hfa) 2 puff Q4H PRN INH RESP DISTRESS/SOB/ETC......; Start 09/15/16 at 09:30 Amlodipine Besylate (Norvasc) 10 mg DAILY PO Last administered on 09/16/16 09 :09; Admin Dose 10 MG; Start 09/16/16 at 09:00 Isosorbide Mononitrate (Imdur) 30 mg DAILY PO Last administered on 09/16/16 09:22; Admin Dose 30 MG; Start 09/16/16 at 09:00 Thiamine HCl (Vitamin B1) 100 mg DAILY PO Last administered on 09/16/16 09:08 ; Admin Dose 100 MG; Start 09/15/16 at 14:00; Stop 09/18/16 at 13:59 Metoprolol Succinate (Toprol Xl) 25 mg DAILY PO Last administered on 09:09; Admin Dose 25 MG; Start 09/16/16 at 09:00 Folic Acid (Folic Acid) 1 mg DAILY PO Last administered on 09/16/16 09:07; Admin Dose 1 MG; Start 09/16/16 at 09:00 Cyanocobalamin (Vitamin B12) 1,000 mcg DAILY PO Last administered on 09:08; Admin Dose 1,000 MCG; Start 09/16/16 at 09:00 Chlordiazepoxide (Librium) 10 mg TID PO Last administered on 09/16/16 09:08; Admin Dose 10 MG; Start 09/15/16 at 21:00; Stop 09/17/16 at 20:59 Lorazepam 1 mg 1 mg Q1H PRN IV CONTROL WITHDRAWAL SYMPTOMS Last administered on 09/16/16 09:08; Admin Dose 1 MG; Start 09/15/16 at 19:30 Multivitamins/ Thiamine HCl/ Folic Acid/Sodium Chloride (Mvi-12 Adult/ Vitamin B1/Folic Acid/NS) 1,011.2 ml @ 125 mls/ hr DAILY@09 IVPB Last administered on 09/16/16 09:07; Admin Dose 125 MLS/HR; Start 09/16/16 at 09:00 Nicotine (Nicoderm 21 Mg/ 24hr) 1 patch DAILY TRANSDERM Last administered on 09:12; Admin Dose 1 PATCH; Start 09/16/16 at 09:00 NITIN CORTEZ Sep 16, 2016 11:28
--- NOTE | 2016-09-16 12:43 | CONS ---
Date/Time of Note Date/Time of Note DATE: 09/16/16 TIME: 12:37 Assessment/Plan Assessment/Plan Chief Complaint/Hosp Course Regarding the possibility of hypoglycemia. I do not believe this is a true hypoglycemic event I do not believe that he is having hypoglycemia induced syncope. I suspect was going on here as a sequelae of his alcohol consumption. On the second day when I gave him a chance to answer the questions and from a different avenue he reports he drinks bourbon and water a minimum of 3 drinks a day if not more every day of the week. He has had a normal Cortrosyn stimulation test is normal thyroid. As such I would not place any diagnostic solidity to the question of hypoglycemia. The primary issue here is his alcoholism and in fact I am worried that he has impending DTs. Problems: Consultation Date/Type/Reason Admit Date/Time Sep 14, 2016 at 15:19 Date of Consultation: Sep 15, 2016 Type of Consultation: Endocrinology Reason for Consultation Possible hypoglycemia Referring Provider: NITIN CORTEZ Hx of Present Illness This is 1 of several [facility] admissions for this 70-year- old right-handed single male. He initially stated that he does not consume alcoholic beverages. However his toxicology screen is positive for alcohol and in fact I remember them from other institutions for this issue. He had had a single Accu-Chek at 39. He was admitted for an unwitnessed syncopal episode. He has not been on any type of medications that would cause hypoglycemia per se. He has not been had been on or had access to sulfonylureas insulin etc. He has no known history of adrenal insufficiency is not been on any steroids and denies any known history of hepatic insufficiency. Please note that the quality of his giving information is limited Constitutional: no complaints Respiratory: shortness of breath Cardiovascular: no complaints Gastrointestinal: no complaints Genitourinary: no complaints Musculoskeletal: no complaints Skin: no complaints Neurologic: no complaints Endocrine: no complaints Lymphatic: no complaints Past Medical History Chronic obstructive pulmonary disease; chemical dependency/alcoholism; Past Surgical History Past Surgical Hx: noncontributory Family History Significant Family History: COPD, other (Alcohol activity) Social History Alcohol Use: heavy Smoking Status: Current every day smoker Drug Use: none Other Social History Please note is [facility] get some of his care at the [facility] also Exam/Review of Systems Vital Signs Vitals Vital Signs Date Time Temp Pulse Resp B/P Pulse Ox O2 Delivery O2 Flow Rate FiO2 09/16/16 10:54 98.0 92 19 148/86 95 09/16/16 09:00 Nasal Cannula 2.0 09/16/16 08:30 32 Intake and Output 09/15/16 09/15/16 09/16/16 15:00 23:00 07:00 Intake Total 1460 ml 750 ml Output Total 36 ml Balance -36 ml 1460 ml 750 ml Exam Patient is alert oriented person but not place or time. This was the same the second day as well Constitutional: alert Eyes: EOMI, nl conjunctiva, nl lids, nl sclera Neck: non-tender, supple Respiratory: clear to auscultation, other (Increased AP diameter decreased I;E ratio) Cardiovascular: nl pulses, regular rate and rhythm Gastrointestinal: nl liver, spleen, non-tender, soft Extremities: normal pulses Results Result Diagram: 09/16/16 0715 09/16/16 0715 Results 24 hrs Laboratory Tests Test 09/15/16 15:00 09/15/16 21:05 09/15/16 21:35 09/15/16 22:05 Folate 7.2 Hepatitis B Surface Antigen NEGATIVE Hepatitis C Antibody NEGATIVE Random Cortisol 11.0 7.4 17.5 24.5 Rapid Plasma Reagin NONREACTIVE Vitamin B12 Level 374 Test 09/16/16 07:15 09/16/16 07:48 Anion Gap 19 H Anisocytosis 1+ Basophils # 0.0 Basophils % 0.7 Blood Morphology Comment Blood Urea Nitrogen 14 Calcium Level 8.8 Carbon Dioxide Level 23 Chloride Level 100 Creatinine 1.01 Differential Comment AUTO w/SCAN Eosinophils # 0.0 Eosinophils % 0.5 Glucose Level 91 Hematocrit 37.5 L Hemoglobin 12.8 L Lymphocytes # 1.2 Lymphocytes % 27.3 Magnesium Level 1.8 Mean Corpuscular Hemoglobin 34.3 H Mean Corpuscular Hemoglobin Concent 34.0 Mean Corpuscular Volume 100.9 Mean Platelet Volume 8.8 Monocytes # 0.4 Monocytes % 9.8 Neutrophils # 2.8 Neutrophils % 61.7 Nucleated Red Blood Cells # 0.0 Nucleated Red Blood Cells % 0.0 Phosphorus Level 4.5 # Platelet Count 65 #L Platelet Estimate PLT APPEAR DECREASED Potassium Level 3.9 Red Blood Count 3.72 L Red Cell Distribution Width 14.8 H Sodium Level 138 White Blood Count 4.5 #L Bedside Glucose 81 Medications Medications Current Medications Ondansetron HCl (Zofran Inj) 4 mg Q6H PRN IV NAUSEA AND/OR VOMITING; Start at 17:30 Acetaminophen (Tylenol Tab) 650 mg Q6H PRN PO PAIN LEVEL 1-3 OR FEVER; Start 09/14/16 at 17:30 Acetaminophen/ Hydrocodone Bitart ([place] (5/325)) 1 tab Q6H PRN PO MODERATE PAIN LEVEL 4-6; Start 09/14/16 at 17:30 Morphine Sulfate (morphine) 2 mg Q4H PRN IV SEVERE PAIN LEVEL 7-10; Start at 17:30 Docusate Sodium (Colace) 100 mg Q12H PRN PO CONSTIPATION; Start 09/14/16 at 17 :30 Magnesium Hydroxide (Milk Of Mag) 30 ml DAILY PRN PO CONSTIPATION; Start 09/14 at 17:30 Sodium Biphosphate/ Sodium Phosphate (Fleet Enema) 133 ml DAILY PRN OR CONSTIPATION; Start 09/14/16 at 17:30 Famotidine (Pepcid) 20 mg Q12 PO Last administered on 09/16/16at 09:08; Admin Dose 20 MG; Start 09/14/16 at 21:00 Heparin Sodium (Porcine) 5000 unit 5,000 unit Q12 SC Last administered on 09/16at 09:14; Admin Dose 5,000 UNIT; Start 09/14/16 at 21:00 Sodium Chloride (1/2 NS) 1,000 ml @ 75 mls/hr [id number] IV Last administered on 09/16/16at 09:21; Admin Dose 75 MLS/HR; Start 09/14/16 at 17:21 Hydralazine HCl (Apresoline) 10 mg Q6H PRN IV ELEVATED BLOOD PRESSURE Last administered on 09/15/16at 23:04; Admin Dose 10 MG; Start 09/14/16 at 17:30 Nitroglycerin (Nitroglycerin (Sl Tab) 0.4 Mg) 1 tab Q5M PRN SL ANGINA; Start 09/14/16 at 17:30 Albuterol (Ventolin Hfa) 2 puff Q4H PRN INH WHEEZING AND SOB; Start 09/14/16 at 17:30 Atorvastatin Calcium (Lipitor) 5 mg DAILY@21 PO Last administered on at 21:10; Admin Dose 5 MG; Start 09/14/16 at 21:00 Salmeterol Xinafoate/ Fluticasone (Advair 250/50 Diskus) 1 inh BID INH Last administered on 09/16/16at 09:23; Admin Dose 1 INH; Start 09/15/16 at 09:00 Albuterol (Ventolin Hfa) 2 puff Q4H PRN INH RESP DISTRESS/SOB/ETC......; Start 09/15/16 at 09:30 Amlodipine Besylate (Norvasc) 10 mg DAILY PO Last administered on 09/16/16at 09 :09; Admin Dose 10 MG; Start 09/16/16 at 09:00 Isosorbide Mononitrate (Imdur) 30 mg DAILY PO Last administered on 09/16/16at 09:22; Admin Dose 30 MG; Start 09/16/16 at 09:00 Thiamine HCl (Vitamin B1) 100 mg DAILY PO Last administered on 09/16/16at 09:08 ; Admin Dose 100 MG; Start 09/15/16 at 14:00; Stop 09/18/16 at 13:59 Metoprolol Succinate (Toprol Xl) 25 mg DAILY PO Last administered on at 09:09; Admin Dose 25 MG; Start 09/16/16 at 09:00 Folic Acid (Folic Acid) 1 mg DAILY PO Last administered on 09/16/16 09:07; Admin Dose 1 MG; Start 09/16/16 at 09:00 Cyanocobalamin (Vitamin B12) 1,000 mcg DAILY PO Last administered on at 09:08; Admin Dose 1,000 MCG; Start 09/16/16 at 09:00 Lorazepam 1 mg 1 mg Q1H PRN IV CONTROL WITHDRAWAL SYMPTOMS Last administered on 09/16/16at 11:34; Admin Dose 1 MG; Start 09/15/16 at 19:30 Multivitamins/ Thiamine HCl/ Folic Acid/Sodium Chloride (Mvi-12 Adult/ Vitamin B1/Folic Acid/NS) 1,011.2 ml @ 125 mls/ hr DAILY@09 IVPB Last administered on 09/16/16at 09:07; Admin Dose 125 MLS/HR; Start 09/16/16 at 09:00 Nicotine (Nicoderm 21 Mg/ 24hr) 1 patch DAILY TRANSDERM Last administered on at 09:12; Admin Dose 1 PATCH; Start 09/16/16 at 09:00 Chlordiazepoxide (Librium) 50 mg TID PO ; Start 09/16/16 at 13:00 HERBERTH CUNNINGHAM MD Sep 16, 2016 12:43
[2016-09-16] MEDS: CHLORDIAZEPOXIDE 25 MG CAP PO SCH ×2 (14:18→20:22)
--- NOTE | 2016-09-16 18:16 | RADRPT ---
Echocardiogram Report Patient Name: KERRIE SCHAEFER Gender: Male Date: 1945 Study Date: 15-Sep-2016 Horticultural Manager: jose Garner [facility] Location: [id number] Ref. Physician: NITIN CORTEZ Quality: Adequate Procedures: Transthoracic echocardiogram with complete 2D, M-Mode, and doppler examination. Indications: Syncope. 2D/M Mode Doppler Measurement Value Normal Ranges Measurement Value Normal Ranges LVIDd 2D 5.0 3.5 - 5.6 cm AV Peak Rik 1.1 m/sec LVIDs 2D 2.3 2.1 - 4.1 cm AV Peak PG 5.0 mmHg FS 2D 53.4 % LVOT Peak Rik 0.7 m/sec LVPWd 2D 0.9 0.6 - 1.1 cm LVOT Peak PG 2.0 mmHg IVSd 2D 1.0 0.6 - 1.1 cm MV E Peak Rik 0.6 m/sec IVS/LVPW 2D 1.1 MV A Peak Rik 0.8 m/sec AoR Diam 2D 2.7 2.0 - 3.7 cm MV E/A 0.7 LA/Ao 2D 1 0 - 1 MV Decel Time 183 msec EDV 2D 128.0 cm3 MV E/A 0.7 ESV 2D 13.0 cm3 LA Dimen 2D 2.7 2.3 - 4.0 cm Findings Left Ventricle: Lower limits of normal systolic function. Normal left ventricular cavity size. Normal left ventricular wall thickness. Ejection fraction is visually estimated at 50 %. Tissue Doppler/Mitral Doppler indices are consistent with impaired relaxation (Stage I diastolic dysfunction). These segments of the LV are hypokinetic apical septum. Right Ventricle: Normal right ventricular size. Normal right ventricular systolic function. Left Atrium: The left atrium is normal in size. LA Dimension2.70 cm. Right Atrium: The right atrium is normal in size. Mitral Valve: Normal appearance of the mitral valve. Normal appearance and function of the mitral valve with trace physiologic regurgitation. Aortic Valve: Aortic cusps appear mildly calcified. Trace aortic valve regurgitation. Tricuspid Valve: Normal appearance of the tricuspid valve. Unable to obtain RVSP due to minimal presence of tricuspid regurgitation. Pulmonic Valve: Pulmonic valve not well visualized. Pericardium: Not well visualized. Aorta: Normal aortic root. IVC: Normal size and normal respiratory collapse consistent with normal right atrial pressure. Pulmonary Artery: Normal pulmonary artery size. Conclusions 1.Lower limits of normal systolic function. Normal left ventricular cavity size. Normal left ventricular wall thickness. Ejection fraction is visually estimated at 50 %. Tissue Doppler/Mitral Doppler indices are consistent with impaired relaxation (Stage I diastolic dysfunction). These segments of the LV are hypokinetic apical septum. 2.Normal appearance of the mitral valve. Normal appearance and function of the mitral valve with trace physiologic regurgitation. 3.Aortic cusps appear mildly calcified. Trace aortic valve regurgitation. 4.Normal appearance of the tricuspid valve. Unable to obtain RVSP due to minimal presence of tricuspid regurgitation. Electronically Signed By: Nilton Azul 16-Sep-2016 18:15:15 -0800 Patient Name: KERRIE SCHAEFER Study Date: 15-Sep-2016 [id number]
[2016-09-16] MEDS: ATORVASTATIN 10 MG TAB PO SCH (20:14)
[2016-09-17] VITALS (23 sets, daily range): BP systolic 124–174; BP diastolic 70–96; PULSE 67–116; RESP 16–22
[2016-09-17] MEDS: LORAZEPAM 2 MG INJ IV PRN ×4 (00:51→23:46)
[2016-09-17] MEDS: SALMETEROL/FLUTICASONE 250/50 INHA INH SCH ×2 (09:01→20:26)
[2016-09-17] MEDS: FOLIC ACID 1 MG TAB PO SCH (09:02)
[2016-09-17] MEDS: MULTIVITAMINS 10 ML, THIAMINE 100 MG, FOLIC ACID 1 MG in SOD CHLORIDE 0.9% 1,000 ML IVPB SCH (09:02)
[2016-09-17] MEDS: CHLORDIAZEPOXIDE 25 MG CAP PO SCH ×3 (09:03→20:26)
[2016-09-17] MEDS: FAMOTIDINE 20 MG TAB PO SCH ×2 (09:03→20:26)
[2016-09-17] MEDS: NICOTINE (21 MG/24 HR) PATCH TRANSDERM SCH (09:03)
[2016-09-17] MEDS: CYANOCOBALAMIN 500 MCG TAB PO SCH (09:03)
[2016-09-17] MEDS: THIAMINE 100 MG TAB PO SCH (09:03)
[2016-09-17] MEDS: METOPROLOL (XL) 25 MG TAB PO SCH (09:04)
[2016-09-17] MEDS: AMLODIPINE 10 MG TAB PO SCH (09:04)
[2016-09-17] MEDS: ISOSORBIDE MONONITRATE(SR)30 MG TAB PO SCH (09:04)
[2016-09-17] MEDS: HEPARIN 5,000 UNIT/0.5 ML SYG SC SCH ×2 (09:05→20:32)
--- NOTE | 2016-09-17 11:22 | PN ---
Date/Time of Note Date/Time of Note DATE: 09/17/16 TIME: 11:20 Assessment/Plan VTE Prophylaxis VTE Prophylaxis Intervention: heparin Lines/Catheters IV Catheter Type (from [facility] [place] Peripheral IV Urinary Cath still in place: No Assessment/Plan Chief Complaint/Hosp Course ASSESSMENT AND PLAN: 70-year-old male coming in with a syncopal event with low blood sugars, EtOH intoxication, now in withdrawal. 1. Syncope - I have a low suspicion for stroke as well. EtOH levels elevated and pt showing signs of alcohol withdrawal. -continue telemetry floor - bananna bag, librium 50 mg TID, ativan prn - neuro checks every 4 hours. - f/u PT and OT consults as well. 2. Chronic obstructive pulmonary disease. He is on DuoNebs p.r.n. as well. Monitor for any signs of any shortness of breath. 3. Coronary artery disease. Blood pressure was high when he came in. Continue hydralazine p.r.n. We ae holding his other home blood pressure medicines for now until we can further check his echocardiogram. 4. History of hypertension. Again, see #2. 5. Gastroesophageal reflux disease. He is on an H2 dacia. 6. Deep venous thrombosis prophylaxis. Heparin subcutaneously. 7. Essential tremors. Continue to monitor for now. 8. low sugars - A1c = 5.1 Sugars stable. - f/u endo consult rec's Problems: Subjective 24 Hr Interval Summary Free Text/Dictation Less agitated, tolerating diet, but still in withdrawal. Exam/Review of Systems Vital Signs Vitals Vital Signs Date Time Temp Pulse Resp B/P Pulse Ox O2 Delivery O2 Flow Rate FiO2 09/17/16 09:30 Nasal Cannula 2.0 09/17/16 09:02 82 09/17/16 07:40 97.5 18 130/80 94 09/16/16 17:09 32 Intake and Output 09/16/16 09/16/16 09/17/16 15:00 23:00 07:00 Intake Total 650 ml Balance 650 ml Exam GENERAL: The patient is lying in bed, agitated, in restraints HEENT: Pupils equal, round, react to light. Extraocular muscles intact. NECK: Supple. No thyromegaly. LUNGS: Mild wheezes bilaterally in the bases. No rhonchi. CARDIOVASCULAR: S1, S2 heard. No rubs or gallops. ABDOMEN: Soft, nontender, nondistended. Normal bowel sounds. No rebound or guarding. MUSCULOSKELETAL: No lower extremity edema bilaterally. NEUROLOGIC: No focal deficits. Results Result Diagram: 09/16/1671409/16/16714 Medications Medications Current Medications Ondansetron HCl (Zofran Inj) 4 mg Q6H PRN IV NAUSEA AND/OR VOMITING; Start at 17:30 Acetaminophen (Tylenol Tab) 650 mg Q6H PRN PO PAIN LEVEL 1-3 OR FEVER; Start 09/14/16 at 17:30 Acetaminophen/ Hydrocodone Bitart ([place] (5/325)) 1 tab Q6H PRN PO MODERATE PAIN LEVEL 4-6; Start 09/14/16 at 17:30 Morphine Sulfate (morphine) 2 mg Q4H PRN IV SEVERE PAIN LEVEL 7-10; Start at 17:30 Docusate Sodium (Colace) 100 mg Q12H PRN PO CONSTIPATION; Start 09/14/16 at 17 :30 Magnesium Hydroxide (Milk Of Mag) 30 ml DAILY PRN PO CONSTIPATION; Start 09/14 at 17:30 Sodium Biphosphate/ Sodium Phosphate (Fleet Enema) 133 ml DAILY PRN [place] CONSTIPATION; Start 09/14/16 at 17:30 Famotidine (Pepcid) 20 mg Q12 PO Last administered on 09/17/16at 09:03; Admin Dose 20 MG; Start 09/14/16 at 21:00 Heparin Sodium (Porcine) 5000 unit 5,000 unit Q12 SC Last administered on 09/17at 09:05; Admin Dose 5,000 UNIT; Start 09/14/16 at 21:00 Sodium Chloride (1/2 NS) 1,000 ml @ 75 mls/hr [id number] IV Last administered on 09/16/16at 20:22; Admin Dose 75 MLS/HR; Start 09/14/16 at 17:21 Hydralazine HCl (Apresoline) 10 mg Q6H PRN IV ELEVATED BLOOD PRESSURE Last administered on 09/15/16at 23:04; Admin Dose 10 MG; Start 09/14/16 at 17:30 Nitroglycerin (Nitroglycerin (Sl Tab) 0.4 Mg) 1 tab Q5M PRN SL ANGINA; Start 09/14/16 at 17:30 Albuterol (Ventolin Hfa) 2 puff Q4H PRN INH WHEEZING AND SOB; Start 09/14/16 at 17:30 Atorvastatin Calcium (Lipitor) 5 mg DAILY@21 PO Last administered on at 20:14; Admin Dose 5 MG; Start 09/14/16 at 21:00 Salmeterol Xinafoate/ Fluticasone (Advair 250/50 Diskus) 1 inh BID INH Last administered on 09/17/16at 09:01; Admin Dose 1 INH; Start 09/15/16 at 09:00 Albuterol (Ventolin Hfa) 2 puff Q4H PRN INH RESP DISTRESS/SOB/ETC......; Start 09/15/16 at 09:30 Amlodipine Besylate (Norvasc) 10 mg DAILY PO Last administered on 09/17/16at 09 :04; Admin Dose 10 MG; Start 09/16/16 at 09:00 Isosorbide Mononitrate (Imdur) 30 mg DAILY PO Last administered on 09/17/16at 09:04; Admin Dose 30 MG; Start 09/16/16 at 09:00 Thiamine HCl (Vitamin B1) 100 mg DAILY PO Last administered on 09/17/16at 09:03 ; Admin Dose 100 MG; Start 09/15/16 at 14:00; Stop 09/18/16 at 13:59 Metoprolol Succinate (Toprol Xl) 25 mg DAILY PO Last administered on at 09:04; Admin Dose 25 MG; Start 09/16/16 at 09:00 Folic Acid (Folic Acid) 1 mg DAILY PO Last administered on 09/17/16at 09:02; Admin Dose 1 MG; Start 09/16/16 at 09:00 Cyanocobalamin (Vitamin B12) 1,000 mcg DAILY PO Last administered on 09:03; Admin Dose 1,000 MCG; Start 09/16/16 at 09:00 Lorazepam 1 mg 1 mg Q1H PRN IV CONTROL WITHDRAWAL SYMPTOMS Last administered on 09/17/16 05:15; Admin Dose 1 MG; Start 09/15/16 at 19:30 Multivitamins/ Thiamine HCl/ Folic Acid/Sodium Chloride (Mvi-12 Adult/ Vitamin B1/Folic Acid/NS) 1,011.2 ml @ 125 mls/ hr DAILY@09 IVPB Last administered on 09/17/16at 09:02; Admin Dose 125 MLS/HR; Start 09/16/16 at 09:00 Nicotine (Nicoderm 21 Mg/ 24hr) 1 patch DAILY TRANSDERM Last administered on 09:03; Admin Dose 1 PATCH; Start 09/16/16 at 09:00 Chlordiazepoxide (Librium) 50 mg TID PO Last administered on 09/17/16 09:03; Admin Dose 50 MG; Start 09/16/16 at 13:00 NITIN CORTEZ Sep 17, 2016 11:21
[2016-09-17 12:27] LABS: BASOPHILS % 0.6 % (0.0-2.0); EOSINOPHILS # 0.1 10^3/ul (0.0-0.5); HEMATOCRIT 34.2 % (42.0-52.0); HEMOGLOBIN 11.5 g/dl (14.0-18.0); LYMPHOCYTES # 1.1 10^3/ul (0.8-2.9); MEAN CORPUSCULAR HEMOGLOBIN 34.3 pg (29.0-33.0); MEAN CORPUSCULAR HGB CONC 33.8 g/dl (32.0-37.0); MEAN CORPUSCULAR VOLUME 101.6 fl (82.0-101.0); MEAN PLATELET VOLUME 8.3 fl (7.4-10.4); MONOCYTE # 0.3 10^3/ul (0.3-0.9); MONOCYTES % 6.8 % (0.0-11.0); NEUTROPHIL # 3.1 10^3/ul (1.6-7.5); NEUTROPHILS % 65.6 % (39.0-77.0); RED BLOOD COUNT 3.36 10^6/ul (4.70-6.10); RED CELL DISTRIBUTION WIDTH 14.7 % (11.5-14.5); UNCORRECTED WBC 4.8 10^3/ul (4.8-10.8); WHITE BLOOD COUNT 4.8 10^3/ul (4.8-10.8)
[2016-09-17 12:32] LABS: CONDITION 1; LH ANALYZER COMMENTS 1; PLATELET COUNT 59 10^3/UL (140-440); POTASSIUM 3.1 mmol/L (3.5-5.1)
[2016-09-17 12:34] LABS: CREATININE 0.81 mg/dl (0.61-1.24)
[2016-09-17 12:35] LABS: CALCIUM 8.3 mg/dl (8.4-10.2)
--- NOTE | 2016-09-17 12:49 | CONS ---
Date/Time of Note Date/Time of Note DATE: 09/17/16 TIME: 12:46 Assessment/Plan Assessment/Plan Chief Complaint/Hosp Course Regarding the possibility of hypoglycemia. I do not believe this is a true hypoglycemic event I do not believe that he is having hypoglycemia induced syncope. I suspect was going on here as a sequelae of his alcohol consumption. On the second day when I gave him a chance to answer the questions and from a different avenue he reports he drinks bourbon and water a minimum of 3 drinks a day if not more every day of the week. He has had a normal Cortrosyn stimulation test is normal thyroid. As such I would not place any diagnostic solidity to the question of hypoglycemia. The primary issue here is his alcoholism and in fact I am worried that he has impending DTs. Problems: (1) Alcohol abuse Status: Chronic Comment: This is an active issue for this patient having a significant damaging effect on his life. He is going to be a difficult placement due to the effects of this. This was also responsible for his admission. (2) Hypoglycemia Status: Acute Comment: This is not a true diagnosis he has a normal thyroid cortisol and liver axis. Due to his alcoholism this was errant lab test aggravated by his poor nutritional state given that this is resolved I will sign off the case for now Consultation Date/Type/Reason Admit Date/Time Sep 14, 2016 at 15:19 Initial Consult Date 09/15/16 Type of Consultation: Endocrinology Reason for Consultation Possible hypoglycemia? Referring Provider: NITIN CORTEZ 24 HR Interval Summary Free Text/Dictation Patient is verbal but somewhat quiet. Constitutional: no complaints Detailed Summary Respiratory: no complaints Cardiovascular: no complaints Gastrointestinal: no complaints Exam/Review of Systems Vital Signs Vitals Vital Signs Date Time Temp Pulse Resp B/P Pulse Ox O2 Delivery O2 Flow Rate FiO2 09/17/16 12:23 98 09/17/16 12:10 97.9 20 124/82 96 Nasal Cannula 2.0 09/16/16 17:09 32 Intake and Output 09/16/16 09/16/16 09/17/16 15:00 23:00 07:00 Intake Total 650 ml Balance 650 ml Exam Constitutional: alert (Oriented times person and place but not time or situation) Neck: non-tender, supple Respiratory: clear to auscultation, normal air movement Cardiovascular: nl pulses, regular rate and rhythm Gastrointestinal: nl liver, spleen, non-tender, soft Results Result Diagram: 09/17/16 1145 09/16/16 0715 Results 24 hrs Laboratory Tests Test 09/17/16 11:45 Basophils # 0.0 Basophils % 0.6 Blood Morphology Comment Eosinophils # 0.1 Eosinophils % 3.0 Hematocrit 34.2 L Hemoglobin 11.5 L Lymphocytes # 1.1 Lymphocytes % 24.0 Mean Corpuscular Hemoglobin 34.3 H Mean Corpuscular Hemoglobin Concent 33.8 Mean Corpuscular Volume 101.6 H Mean Platelet Volume 8.3 Monocytes # 0.3 Monocytes % 6.8 Neutrophils # 3.1 Neutrophils % 65.6 Nucleated Red Blood Cells # 0.0 Nucleated Red Blood Cells % 0.0 Platelet Count 59 L Red Blood Count 3.36 L Red Cell Distribution Width 14.7 H White Blood Count 4.8 Medications Medications Current Medications Ondansetron HCl (Zofran Inj) 4 mg Q6H PRN IV NAUSEA AND/OR VOMITING; Start at 17:30 Acetaminophen (Tylenol Tab) 650 mg Q6H PRN PO PAIN LEVEL 1-3 OR FEVER; Start 09/14/16 at 17:30 Acetaminophen/ Hydrocodone Bitart ([place] (5/325)) 1 tab Q6H PRN PO MODERATE PAIN LEVEL 4-6; Start 09/14/16 at 17:30 Morphine Sulfate (morphine) 2 mg Q4H PRN IV SEVERE PAIN LEVEL 7-10; Start at 17:30 Docusate Sodium (Colace) 100 mg Q12H PRN PO CONSTIPATION; Start 09/14/16 at 17 :30 Magnesium Hydroxide (Milk Of Mag) 30 ml DAILY PRN PO CONSTIPATION; Start 09/14 at 17:30 Sodium Biphosphate/ Sodium Phosphate (Fleet Enema) 133 ml DAILY PRN [place] CONSTIPATION; Start 09/14/16 at 17:30 Famotidine (Pepcid) 20 mg Q12 PO Last administered on 09/17/16at 09:03; Admin Dose 20 MG; Start 09/14/16 at 21:00 Heparin Sodium (Porcine) 5000 unit 5,000 unit Q12 SC Last administered on 09/17at 09:05; Admin Dose 5,000 UNIT; Start 09/14/16 at 21:00 Sodium Chloride (1/2 NS) 1,000 ml @ 75 mls/hr [id number] IV Last administered on 09/16/16at 20:22; Admin Dose 75 MLS/HR; Start 09/14/16 at 17:21 Hydralazine HCl (Apresoline) 10 mg Q6H PRN IV ELEVATED BLOOD PRESSURE Last administered on 09/15/16at 23:04; Admin Dose 10 MG; Start 09/14/16 at 17:30 Nitroglycerin (Nitroglycerin (Sl Tab) 0.4 Mg) 1 tab Q5M PRN SL ANGINA; Start 09/14/16 at 17:30 Albuterol (Ventolin Hfa) 2 puff Q4H PRN INH WHEEZING AND SOB; Start 09/14/16 at 17:30 Atorvastatin Calcium (Lipitor) 5 mg DAILY@21 PO Last administered on at 20:14; Admin Dose 5 MG; Start 09/14/16 at 21:00 Salmeterol Xinafoate/ Fluticasone (Advair 250/50 Diskus) 1 inh BID INH Last administered on 09/17/16at 09:01; Admin Dose 1 INH; Start 09/15/16 at 09:00 Albuterol (Ventolin Hfa) 2 puff Q4H PRN INH RESP DISTRESS/SOB/ETC......; Start 09/15/16 at 09:30 Amlodipine Besylate (Norvasc) 10 mg DAILY PO Last administered on 09/17/16at 09 :04; Admin Dose 10 MG; Start 09/16/16 at 09:00 Isosorbide Mononitrate (Imdur) 30 mg DAILY PO Last administered on 09/17/16at 09:04; Admin Dose 30 MG; Start 09/16/16 at 09:00 Thiamine HCl (Vitamin B1) 100 mg DAILY PO Last administered on 09/17/16at 09:03 ; Admin Dose 100 MG; Start 09/15/16 at 14:00; Stop 09/18/16 at 13:59 Metoprolol Succinate (Toprol Xl) 25 mg DAILY PO Last administered on at 09:04; Admin Dose 25 MG; Start 09/16/16 at 09:00 Folic Acid (Folic Acid) 1 mg DAILY PO Last administered on 09/17/16at 09:02; Admin Dose 1 MG; Start 09/16/16 at 09:00 Cyanocobalamin (Vitamin B12) 1,000 mcg DAILY PO Last administered on 09:03; Admin Dose 1,000 MCG; Start 09/16/16 at 09:00 Lorazepam 1 mg 1 mg Q1H PRN IV CONTROL WITHDRAWAL SYMPTOMS Last administered on 09/17/16 05:15; Admin Dose 1 MG; Start 09/15/16 at 19:30 Multivitamins/ Thiamine HCl/ Folic Acid/Sodium Chloride (Mvi-12 Adult/ Vitamin B1/Folic Acid/NS) 1,011.2 ml @ 125 mls/ hr DAILY@09 IVPB Last administered on 09/17/16 09:02; Admin Dose 125 MLS/HR; Start 09/16/16 at 09:00 Nicotine (Nicoderm 21 Mg/ 24hr) 1 patch DAILY TRANSDERM Last administered on 09:03; Admin Dose 1 PATCH; Start 09/16/16 at 09:00 Chlordiazepoxide (Librium) 50 mg TID PO Last administered on 09/17/16 12:20; Admin Dose 50 MG; Start 09/16/16 at 13:00 HERBERTH CUNNINGHAM MD Sep 17, 2016 12:49
[2016-09-17] MEDS: SOD CHLORIDE 0.45% 1,000 ML IV SCH (18:00)
[2016-09-17] MEDS: ATORVASTATIN 10 MG TAB PO SCH (20:26)
[2016-09-18] VITALS (14 sets, daily range): BP systolic 123–172; BP diastolic 75–88; PULSE 66–96; RESP 16–20
[2016-09-18] MEDS: SOD CHLORIDE 0.45% 1,000 ML IV SCH ×2 (01:21→14:41)
[2016-09-18] MEDS: LORAZEPAM 2 MG INJ IV PRN (05:37)
[2016-09-18] MEDS: MULTIVITAMINS 10 ML, THIAMINE 100 MG, FOLIC ACID 1 MG in SOD CHLORIDE 0.9% 1,000 ML IVPB SCH (08:22)
[2016-09-18 08:46] LABS: BASOPHILS % 0.5 % (0.0-2.0); EOSINOPHILS # 0.1 10^3/ul (0.0-0.5); EOSINOPHILS % 3.2 % (0.0-7.0); HEMATOCRIT 34.1 % (42.0-52.0); HEMOGLOBIN 11.9 g/dl (14.0-18.0); LYMPHOCYTES % 24.4 % (15.0-51.0); MEAN CORPUSCULAR HEMOGLOBIN 34.7 pg (29.0-33.0); MEAN CORPUSCULAR HGB CONC 34.9 g/dl (32.0-37.0); MEAN CORPUSCULAR VOLUME 99.3 fl (82.0-101.0); MEAN PLATELET VOLUME 8.4 fl (7.4-10.4); MONOCYTE # 0.4 10^3/ul (0.3-0.9); MONOCYTES % 10.2 % (0.0-11.0); NEUTROPHIL # 2.5 10^3/ul (1.6-7.5); NEUTROPHILS % 61.7 % (39.0-77.0); RED BLOOD COUNT 3.43 10^6/ul (4.70-6.10); RED CELL DISTRIBUTION WIDTH 14.5 % (11.5-14.5); UNCORRECTED WBC 4.1 10^3/ul (4.8-10.8); WHITE BLOOD COUNT 4.1 10^3/ul (4.8-10.8)
[2016-09-18 08:48] LABS: POTASSIUM 3.1 mmol/L (3.5-5.1)
[2016-09-18 08:50] LABS: CONDITION 1; PLATELET COUNT 62 10^3/UL (140-440)
[2016-09-18 08:51] LABS: CREATININE 0.73 mg/dl (0.61-1.24)
[2016-09-18 08:52] LABS: CALCIUM 8.6 mg/dl (8.4-10.2)
[2016-09-18] MEDS: FOLIC ACID 1 MG TAB PO SCH (09:54)
[2016-09-18] MEDS: SALMETEROL/FLUTICASONE 250/50 INHA INH SCH ×2 (09:54→21:37)
[2016-09-18] MEDS: FAMOTIDINE 20 MG TAB PO SCH ×2 (09:55→21:38)
[2016-09-18] MEDS: ISOSORBIDE MONONITRATE(SR)30 MG TAB PO SCH (09:55)
[2016-09-18] MEDS: CHLORDIAZEPOXIDE 25 MG CAP PO SCH ×3 (09:55→21:38)
[2016-09-18] MEDS: AMLODIPINE 10 MG TAB PO SCH (09:55)
[2016-09-18] MEDS: THIAMINE 100 MG TAB PO SCH (09:56)
[2016-09-18] MEDS: CYANOCOBALAMIN 500 MCG TAB PO SCH (09:56)
[2016-09-18] MEDS: METOPROLOL (XL) 25 MG TAB PO SCH (09:56)
[2016-09-18] MEDS: HEPARIN 5,000 UNIT/0.5 ML SYG SC SCH ×2 (09:58→21:39)
[2016-09-18] MEDS: NICOTINE (21 MG/24 HR) PATCH TRANSDERM SCH (10:00)
--- NOTE | 2016-09-18 11:47 | PN ---
Date/Time of Note Date/Time of Note DATE: 09/18/16 TIME: 11:45 Assessment/Plan VTE Prophylaxis VTE Prophylaxis Intervention: heparin Lines/Catheters IV [facility]from [facility]): Peripheral IV Urinary Cath still in place: No Assessment/Plan Chief Complaint/Hosp Course ASSESSMENT AND PLAN: 70-year-old male coming in with a syncopal event with low blood sugars, EtOH intoxication, now in withdrawal. 1. Syncope - sec to EtOH intoxication; ethanol levels elevated and pt showing signs of alcohol withdrawal. -continue telemetry floor - bananna bag, librium 50 mg TID, ativan prn - neuro checks every 4 hours. - f/u PT and OT consults as well. 2. Chronic obstructive pulmonary disease. He is on DuoNebs p.r.n. as well. Monitor for any signs of any shortness of breath. 3. Coronary artery disease. Blood pressure was high when he came in. Continue hydralazine p.r.n. We are holding his other home blood pressure medicines for now until we can further check his echocardiogram. 4. History of hypertension. Again, see #2. 5. Gastroesophageal reflux disease. He is on an H2 dacia. 6. Deep venous thrombosis prophylaxis. Heparin subcutaneously. 7. Essential tremors. Continue to monitor for now. 8. low sugars - A1c = 5.1 Sugars stable. - f/u endo consult rec's Problems: Subjective 24 Hr Interval Summary Free Text/Dictation Pt still occasionally agitated this AM, needed ativan, otherwise no acute events overnight. Exam/Review of Systems Vital Signs Vitals Vital Signs Date Time Temp Pulse Resp B/P Pulse Ox O2 Delivery O2 Flow Rate FiO2 09/18/16 11:43 97.4 87 20 123/75 96 09/18/16 07:52 Nasal Cannula 2.0 09/16/16 17:09 32 Intake and Output 09/17/16 09/17/16 09/18/16 14:59 22:59 06:59 Intake Total 1250 ml 1600 ml Balance 1250 ml 1600 ml Exam GENERAL: presently sleeping, in restraints HEENT: Pupils equal, round, react to light. Extraocular muscles intact. NECK: Supple. No thyromegaly. LUNGS: Mild wheezes bilaterally in the bases. No rhonchi. CARDIOVASCULAR: S1, S2 heard. No rubs or gallops. ABDOMEN: Soft, nontender, nondistended. Normal bowel sounds. No rebound or guarding. MUSCULOSKELETAL: No lower extremity edema bilaterally. NEUROLOGIC: No focal deficits. Results Result Diagram: 09/18/16 0811 09/18/16 0811 Results 24 hrs Laboratory Tests Test 09/18/16 01:08 09/18/16 05:41 09/18/16 08:11 Bedside Glucose 81 78 Anion Gap 14 Basophils # 0.0 Basophils % 0.5 Blood Morphology Comment Blood Urea Nitrogen 7 Calcium Level 8.6 Carbon Dioxide Level 28 Chloride Level 100 Creatinine 0.73 Eosinophils # 0.1 Eosinophils % 3.2 Glucose Level 81 Hematocrit 34.1 L Hemoglobin 11.9 L Lymphocytes # 1.0 Lymphocytes % 24.4 Mean Corpuscular Hemoglobin 34.7 H Mean Corpuscular Hemoglobin Concent 34.9 Mean Corpuscular Volume 99.3 Mean Platelet Volume 8.4 Monocytes # 0.4 Monocytes % 10.2 Neutrophils # 2.5 Neutrophils % 61.7 Nucleated Red Blood Cells # 0.0 Nucleated Red Blood Cells % 0.0 Platelet Count 62 L Potassium Level 3.1 L Red Blood Count 3.43 L Red Cell Distribution Width 14.5 Sodium Level 139 White Blood Count 4.1 L Medications Medications Current Medications Ondansetron HCl (Zofran Inj) 4 mg Q6H PRN IV NAUSEA AND/OR VOMITING; Start at 17:30 Acetaminophen (Tylenol Tab) 650 mg Q6H PRN PO PAIN LEVEL 1-3 OR FEVER; Start 09/14/16 at 17:30 Acetaminophen/ Hydrocodone Bitart ([place] (5/325)) 1 tab Q6H PRN PO MODERATE PAIN LEVEL 4-6; Start 09/14/16 at 17:30 Morphine Sulfate (morphine) 2 mg Q4H PRN IV SEVERE PAIN LEVEL 7-10; Start at 17:30 Docusate Sodium (Colace) 100 mg Q12H PRN PO CONSTIPATION; Start 09/14/16 at 17 :30 Magnesium Hydroxide (Milk Of Mag) 30 ml DAILY PRN PO CONSTIPATION; Start 09/14 at 17:30 Sodium Biphosphate/ Sodium Phosphate (Fleet Enema) 133 ml DAILY PRN [place] CONSTIPATION; Start 09/14/16 at 17:30 Famotidine (Pepcid) 20 mg Q12 PO Last administered on 09/18/16 09:55; Admin Dose 20 MG; Start 09/14/16 at 21:00 Heparin Sodium (Porcine) 5000 unit 5,000 unit Q12 SC Last administered on 09/18at 09:58; Admin Dose 5,000 UNIT; Start 09/14/16 at 21:00 Sodium Chloride (1/2 NS) 1,000 ml @ 75 mls/hr [id number] IV Last administered on 09/17/16at 18:00; Admin Dose 75 MLS/HR; Start 09/14/16 at 17:21 Hydralazine HCl (Apresoline) 10 mg Q6H PRN IV ELEVATED BLOOD PRESSURE Last administered on 09/15/16at 23:04; Admin Dose 10 MG; Start 09/14/16 at 17:30 Nitroglycerin (Nitroglycerin (Sl Tab) 0.4 Mg) 1 tab Q5M PRN SL ANGINA; Start 09/14/16 at 17:30 Albuterol (Ventolin Hfa) 2 puff Q4H PRN INH WHEEZING AND SOB; Start 09/14/16 at 17:30 Atorvastatin Calcium (Lipitor) 5 mg DAILY@21 PO Last administered on at 20:26; Admin Dose 5 MG; Start 09/14/16 at 21:00 Salmeterol Xinafoate/ Fluticasone (Advair 250/50 Diskus) 1 inh BID INH Last administered on 09/18/16at 09:54; Admin Dose 1 INH; Start 09/15/16 at 09:00 Albuterol (Ventolin Hfa) 2 puff Q4H PRN INH RESP DISTRESS/SOB/ETC......; Start 09/15/16 at 09:30 Amlodipine Besylate (Norvasc) 10 mg DAILY PO Last administered on 09/18/16at 09 :55; Admin Dose 10 MG; Start 09/16/16 at 09:00 Isosorbide Mononitrate (Imdur) 30 mg DAILY PO Last administered on 09/18/16at 09:55; Admin Dose 30 MG; Start 09/16/16 at 09:00 Thiamine HCl (Vitamin B1) 100 mg DAILY PO Last administered on 09/18/16at 09:56 ; Admin Dose 100 MG; Start 09/15/16 at 14:00; Stop 09/18/16 at 13:59 Metoprolol Succinate (Toprol Xl) 25 mg DAILY PO Last administered on 09:56; Admin Dose 25 MG; Start 09/16/16 at 09:00 Folic Acid (Folic Acid) 1 mg DAILY PO Last administered on 09/18/16 09:54; Admin Dose 1 MG; Start 09/16/16 at 09:00 Cyanocobalamin (Vitamin B12) 1,000 mcg DAILY PO Last administered on 09:56; Admin Dose 1,000 MCG; Start 09/16/16 at 09:00 Lorazepam 1 mg 1 mg Q1H PRN IV CONTROL WITHDRAWAL SYMPTOMS Last administered on 09/18/16 05:37; Admin Dose 1 MG; Start 09/15/16 at 19:30 Multivitamins/ Thiamine HCl/ Folic Acid/Sodium Chloride (Mvi-12 Adult/ Vitamin B1/Folic Acid/NS) 1,011.2 ml @ 125 mls/ hr DAILY@09 IVPB Last administered on 09/18/16 08:22; Admin Dose 125 MLS/HR; Start 09/16/16 at 09:00 Nicotine (Nicoderm 21 Mg/ 24hr) 1 patch DAILY TRANSDERM Last administered on at 10:00; Admin Dose 1 PATCH; Start 09/16/16 at 09:00 Chlordiazepoxide 50 mg 50 mg TID PO Last administered on 09/18/16 09:55; Admin Dose 50 MG; Start 09/16/16 at 13:00 Potassium Chloride (KCl 40 MEQ/250 ML NS) 250 ml @ 62.5 mls/hr Q4H IVPB ; Start 09/18/16 at 11:00; Stop 09/18/16 at 18:59 NITIN CORTEZ Sep 18, 2016 11:47
[2016-09-18] MEDS: POTASSIUM CHLORIDE 250 ML IVPB SCH ×2 (12:29→17:26)
[2016-09-18] MEDS: ATORVASTATIN 10 MG TAB PO SCH (21:38)
[2016-09-19] VITALS (18 sets, daily range): BP systolic 132–167; BP diastolic 65–94; PULSE 78–121; RESP 16–20
[2016-09-19] MEDS: LORAZEPAM 2 MG INJ IV PRN (00:35)
[2016-09-19] MEDS: SOD CHLORIDE 0.45% 1,000 ML IV SCH ×2 (04:01→16:36)
[2016-09-19] MEDS: CHLORDIAZEPOXIDE 25 MG CAP PO SCH ×3 (06:00→21:00)
[2016-09-19 08:08] LABS: POTASSIUM 3.9 mmol/L (3.5-5.1)
[2016-09-19 08:11] LABS: CREATININE 0.74 mg/dl (0.61-1.24)
[2016-09-19 08:12] LABS: CALCIUM 9.4 mg/dl (8.4-10.2)
[2016-09-19 08:17] LABS: BASOPHILS % 0.4 % (0.0-2.0); EOSINOPHILS # 0.1 10^3/ul (0.0-0.5); EOSINOPHILS % 3.2 % (0.0-7.0); HEMATOCRIT 37.6 % (42.0-52.0); HEMOGLOBIN 12.8 g/dl (14.0-18.0); LYMPHOCYTES # 1.2 10^3/ul (0.8-2.9); LYMPHOCYTES % 27.1 % (15.0-51.0); MEAN CORPUSCULAR HEMOGLOBIN 34.3 pg (29.0-33.0); MEAN CORPUSCULAR VOLUME 100.8 fl (82.0-101.0); MEAN PLATELET VOLUME 8.1 fl (7.4-10.4); MONOCYTE # 0.7 10^3/ul (0.3-0.9); MONOCYTES % 15.2 % (0.0-11.0); NEUTROPHIL # 2.4 10^3/ul (1.6-7.5); NEUTROPHILS % 54.1 % (39.0-77.0); RED BLOOD COUNT 3.73 10^6/ul (4.70-6.10); RED CELL DISTRIBUTION WIDTH 14.7 % (11.5-14.5); UNCORRECTED WBC 4.4 10^3/ul (4.8-10.8); WHITE BLOOD COUNT 4.4 10^3/ul (4.8-10.8)
[2016-09-19] MEDS: NICOTINE (21 MG/24 HR) PATCH TRANSDERM SCH (08:18)
[2016-09-19] MEDS: MULTIVITAMINS 10 ML, THIAMINE 100 MG, FOLIC ACID 1 MG in SOD CHLORIDE 0.9% 1,000 ML IVPB SCH (08:18)
[2016-09-19] MEDS: HEPARIN 5,000 UNIT/0.5 ML SYG SC SCH ×2 (08:20→22:17)
[2016-09-19] MEDS: FAMOTIDINE 20 MG TAB PO SCH ×2 (08:31→21:00)
[2016-09-19] MEDS: ISOSORBIDE MONONITRATE(SR)30 MG TAB PO SCH (08:31)
[2016-09-19] MEDS: AMLODIPINE 10 MG TAB PO SCH (08:31)
[2016-09-19] MEDS: SALMETEROL/FLUTICASONE 250/50 INHA INH SCH ×2 (08:31→22:16)
[2016-09-19] MEDS: FOLIC ACID 1 MG TAB PO SCH (08:31)
[2016-09-19] MEDS: METOPROLOL (XL) 25 MG TAB PO SCH (08:32)
[2016-09-19] MEDS: CYANOCOBALAMIN 500 MCG TAB PO SCH (08:32)
[2016-09-19 08:36] LABS: CONDITION 1; LH ANALYZER COMMENTS 1; PLATELET COUNT 83 10^3/UL (140-440)
--- NOTE | 2016-09-19 10:10 | PN ---
Date/Time of Note Date/Time of Note DATE: 09/19/16 TIME: 10:08 Assessment/Plan VTE Prophylaxis VTE Prophylaxis Intervention: heparin Lines/Catheters IV Catheter Type (from [facility]): Peripheral IV Urinary Cath still in place: No Assessment/Plan Chief Complaint/Hosp Course ASSESSMENT AND PLAN: 70-year-old male coming in with a syncopal event with low blood sugars, EtOH intoxication, now in withdrawal. 1. Syncope - sec to EtOH intoxication; ethanol levels elevated and pt showing signs of alcohol withdrawal. -continue telemetry floor - [place] willjacobyer librium to 25 mg BID today, ativan prn - neuro checks every 4 hours. - f/u PT and OT consults as well. 2. Chronic obstructive pulmonary disease. He is on DuoNebs p.r.n. as well. Monitor for any signs of any shortness of breath. 3. Coronary artery disease. Blood pressure was high when he came in. Continue hydralazine p.r.n. We are holding his other home blood pressure medicines for now until we can further check his echocardiogram. 4. History of hypertension. Again, see #2. 5. Gastroesophageal reflux disease - H2 dacia. 6. Deep venous thrombosis prophylaxis. Heparin subQ 7. Essential tremors. Continue to monitor for now. 8. hypoglycemia - A1c = 5.1 Sugars stable now. - f/u endo consult rec's Problems: Subjective 24 Hr Interval Summary Free Text/Dictation Lethargic but arousable, on restraints. Exam/Review of Systems Vital Signs Vitals Vital Signs Date Time Temp Pulse Resp B/P Pulse Ox O2 Delivery O2 Flow Rate FiO2 09/19/16 09:13 Nasal Cannula 2.0 09/19/16 09:12 97.8 81 16 161/92 98 09/16/16 17:09 32 Intake and Output 09/18/16 09/18/16 09/19/16 15:00 23:00 07:00 Intake Total 180 ml 300 ml Balance 180 ml 300 ml Exam GENERAL: presently sleeping, in restraints HEENT: Pupils equal, round, react to light. Extraocular muscles intact. NECK: Supple. No thyromegaly. LUNGS: Mild wheezes bilaterally in the bases. No rhonchi. CARDIOVASCULAR: S1, S2 heard. No rubs or gallops. ABDOMEN: Soft, nontender, nondistended. Normal bowel sounds. No rebound or guarding. MUSCULOSKELETAL: No lower extremity edema bilaterally. NEUROLOGIC: No focal deficits. Results Result Diagram: 09/19/16 0725 09/19/16 0725 Results 24 hrs Laboratory Tests Test 09/18/16 15:00 09/19/16 07:25 Bedside Glucose 99 Anion Gap 18 H Basophils # 0.0 Basophils % 0.4 Blood Morphology Comment Blood Urea Nitrogen 6 L Calcium Level 9.4 Carbon Dioxide Level 28 Chloride Level 99 Creatinine 0.74 Eosinophils # 0.1 Eosinophils % 3.2 Glucose Level 85 Hematocrit 37.6 L Hemoglobin 12.8 L Lymphocytes # 1.2 Lymphocytes % 27.1 Mean Corpuscular Hemoglobin 34.3 H Mean Corpuscular Hemoglobin Concent 34.0 Mean Corpuscular Volume 100.8 Mean Platelet Volume 8.1 Monocytes # 0.7 Monocytes % 15.2 H Neutrophils # 2.4 Neutrophils % 54.1 Nucleated Red Blood Cells # 0.0 Nucleated Red Blood Cells % 0.0 Platelet Count 83 #L Potassium Level 3.9 Red Blood Count 3.73 L Red Cell Distribution Width 14.7 H Sodium Level 141 White Blood Count 4.4 L Medications Medications Current Medications Ondansetron HCl (Zofran Inj) 4 mg Q6H PRN IV NAUSEA AND/OR VOMITING; Start at 17:30 Acetaminophen (Tylenol Tab) 650 mg Q6H PRN PO PAIN LEVEL 1-3 OR FEVER; Start 09/14/16 at 17:30 Acetaminophen/ Hydrocodone Bitart ([place] (5/325)) 1 tab Q6H PRN PO MODERATE PAIN LEVEL 4-6; Start 09/14/16 at 17:30 Morphine Sulfate (morphine) 2 mg Q4H PRN IV SEVERE PAIN LEVEL 7-10; Start at 17:30 Docusate Sodium (Colace) 100 mg Q12H PRN PO CONSTIPATION; Start 09/14/16 at 17 :30 Magnesium Hydroxide (Milk Of Mag) 30 ml DAILY PRN PO CONSTIPATION; Start 09/14 at 17:30 Sodium Biphosphate/ Sodium Phosphate (Fleet Enema) 133 ml DAILY PRN [place] CONSTIPATION; Start 09/14/16 at 17:30 Famotidine (Pepcid) 20 mg Q12 PO Last administered on 09/18/16at 21:38; Admin Dose 20 MG; Start 09/14/16 at 21:00 Heparin Sodium (Porcine) 5000 unit 5,000 unit Q12 SC Last administered on 09/19at 08:20; Admin Dose 5,000 UNIT; Start 09/14/16 at 21:00 Sodium Chloride (1/2 NS) 1,000 ml @ 75 mls/hr [id number] IV Last administered on 09/19/16 04:01; Admin Dose 75 MLS/HR; Start 09/14/16 at 17:21 Hydralazine HCl (Apresoline) 10 mg Q6H PRN IV ELEVATED BLOOD PRESSURE Last administered on 09/15/16at 23:04; Admin Dose 10 MG; Start 09/14/16 at 17:30 Nitroglycerin (Nitroglycerin (Sl Tab) 0.4 Mg) 1 tab Q5M PRN SL ANGINA; Start 09/14/16 at 17:30 Albuterol (Ventolin Hfa) 2 puff Q4H PRN INH WHEEZING AND SOB; Start 09/14/16 at 17:30 Atorvastatin Calcium (Lipitor) 5 mg DAILY@21 PO Last administered on at 21:38; Admin Dose 5 MG; Start 09/14/16 at 21:00 Salmeterol Xinafoate/ Fluticasone (Advair 250/50 Diskus) 1 inh BID INH Last administered on 09/18/16at 21:37; Admin Dose 1 INH; Start 09/15/16 at 09:00 Albuterol (Ventolin Hfa) 2 puff Q4H PRN INH RESP DISTRESS/SOB/ETC......; Start 09/15/16 at 09:30 Amlodipine Besylate (Norvasc) 10 mg DAILY PO Last administered on 09/18/16at 09 :55; Admin Dose 10 MG; Start 09/16/16 at 09:00 Isosorbide Mononitrate (Imdur) 30 mg DAILY PO Last administered on 09/18/16 09:55; Admin Dose 30 MG; Start 09/16/16 at 09:00 Metoprolol Succinate (Toprol Xl) 25 mg DAILY PO Last administered on 09:56; Admin Dose 25 MG; Start 09/16/16 at 09:00 Folic Acid (Folic Acid) 1 mg DAILY PO Last administered on 09/18/16 09:54; Admin Dose 1 MG; Start 09/16/16 at 09:00 Cyanocobalamin (Vitamin B12) 1,000 mcg DAILY PO Last administered on 09:56; Admin Dose 1,000 MCG; Start 09/16/16 at 09:00 Lorazepam 1 mg 1 mg Q1H PRN IV CONTROL WITHDRAWAL SYMPTOMS Last administered on 09/19/16 00:35; Admin Dose 1 MG; Start 09/15/16 at 19:30 Multivitamins/ Thiamine HCl/ Folic Acid/Sodium Chloride (Mvi-12 Adult/ Vitamin B1/Folic Acid/NS) 1,011.2 ml @ 125 mls/ hr DAILY@09 IVPB Last administered on 09/19/16 08:18; Admin Dose 125 MLS/HR; Start 09/16/16 at 09:00 Nicotine (Nicoderm 21 Mg/ 24hr) 1 patch DAILY TRANSDERM Last administered on at 08:18; Admin Dose 1 PATCH; Start 09/16/16 at 09:00 Chlordiazepoxide (Librium) 25 mg BID PO ; Start 09/19/16 at 10:00 NITIN CORTEZ Sep 19, 2016 10:10
[2016-09-19] MEDS: ATORVASTATIN 10 MG TAB PO SCH (21:00)
[2016-09-20] VITALS (17 sets, daily range): BP systolic 114–161; BP diastolic 62–90; PULSE 84–98; RESP 18–20
[2016-09-20] MEDS: SOD CHLORIDE 0.45% 1,000 ML IV SCH ×2 (06:41→19:58)
[2016-09-20 07:55] LABS: BASOPHILS % 0.5 % (0.0-2.0); EOSINOPHILS # 0.1 10^3/ul (0.0-0.5); EOSINOPHILS % 2.5 % (0.0-7.0); HEMATOCRIT 36.6 % (42.0-52.0); HEMOGLOBIN 12.4 g/dl (14.0-18.0); LYMPHOCYTES # 1.2 10^3/ul (0.8-2.9); LYMPHOCYTES % 24.4 % (15.0-51.0); MEAN CORPUSCULAR HEMOGLOBIN 34.2 pg (29.0-33.0); MEAN CORPUSCULAR VOLUME 100.4 fl (82.0-101.0); MEAN PLATELET VOLUME 8.2 fl (7.4-10.4); MONOCYTE # 0.7 10^3/ul (0.3-0.9); MONOCYTES % 14.1 % (0.0-11.0); NEUTROPHIL # 2.8 10^3/ul (1.6-7.5); NEUTROPHILS % 58.5 % (39.0-77.0); PLATELET COUNT 105 10^3/UL (140-440); RED BLOOD COUNT 3.64 10^6/ul (4.70-6.10); RED CELL DISTRIBUTION WIDTH 14.7 % (11.5-14.5); UNCORRECTED WBC 4.8 10^3/ul (4.8-10.8); WHITE BLOOD COUNT 4.8 10^3/ul (4.8-10.8)
[2016-09-20 08:02] LABS: CONDITION 1; LH ANALYZER COMMENTS 1
[2016-09-20 08:05] LABS: POTASSIUM 3.6 mmol/L (3.5-5.1)
[2016-09-20 08:07] LABS: CREATININE 0.8 mg/dl (0.61-1.24)
[2016-09-20 08:08] LABS: CALCIUM 8.9 mg/dl (8.4-10.2)
[2016-09-20] MEDS: CYANOCOBALAMIN 500 MCG TAB PO SCH (08:33)
[2016-09-20] MEDS: NICOTINE (21 MG/24 HR) PATCH TRANSDERM SCH (08:33)
[2016-09-20] MEDS: FAMOTIDINE 20 MG TAB PO SCH ×2 (08:34→21:08)
[2016-09-20] MEDS: FOLIC ACID 1 MG TAB PO SCH (08:34)
[2016-09-20] MEDS: METOPROLOL (XL) 25 MG TAB PO SCH (08:34)
[2016-09-20] MEDS: AMLODIPINE 10 MG TAB PO SCH (08:35)
[2016-09-20] MEDS: ISOSORBIDE MONONITRATE(SR)30 MG TAB PO SCH (08:35)
[2016-09-20] MEDS: HEPARIN 5,000 UNIT/0.5 ML SYG SC SCH ×2 (08:35→21:14)
[2016-09-20] MEDS: MULTIVITAMINS 10 ML, THIAMINE 100 MG, FOLIC ACID 1 MG in SOD CHLORIDE 0.9% 1,000 ML IVPB SCH (08:36)
[2016-09-20] MEDS: CHLORDIAZEPOXIDE 25 MG CAP PO SCH ×2 (08:39→21:08)
[2016-09-20] MEDS: SALMETEROL/FLUTICASONE 250/50 INHA INH SCH ×2 (08:40→21:08)
--- NOTE | 2016-09-20 14:00 | PN ---
Date/Time of Note Date/Time of Note DATE: 09/20/16 TIME: 13:58 Assessment/Plan VTE Prophylaxis VTE Prophylaxis Intervention: heparin Lines/Catheters IV Catheter Type (from [facility]): Peripheral IV Urinary Cath still in place: No Assessment/Plan Chief Complaint/Hosp Course ASSESSMENT AND PLAN: 70-year-old male coming in with a syncopal event with low blood sugars, EtOH intoxication, now in withdrawal. 1. Syncope - sec to EtOH intoxication; ethanol levels elevated and pt showing signs of alcohol withdrawal. Slowly improving from intoxication, somewhat lethargic the last 1-2 days, and librium dose and freq has been lowered. -continue telemetry floor - bananna bag, librium to 25 mg BID, ativan prn - neuro checks every 4 hours. - f/u PT and OT consults as well. 2. Chronic obstructive pulmonary disease. He is on DuoNebs p.r.n. as well. Monitor for any signs of any shortness of breath. 3. Coronary artery disease. Blood pressure was high when he came in. Continue hydralazine p.r.n. We are holding his other home blood pressure medicines for now until we can further check his echocardiogram. 4. History of hypertension. Again, see #2. 5. Gastroesophageal reflux disease - H2 dacia. 6. Deep venous thrombosis prophylaxis. Heparin subQ 7. Essential tremors. Continue to monitor for now. 8. hypoglycemia - A1c = 5.1 Sugars stable now. - f/u endo consult rec's Problems: Subjective 24 Hr Interval Summary Free Text/Dictation Pt still lethargic, did eat food in AM. Exam/Review of Systems Vital Signs Vitals Vital Signs Date Time Temp Pulse Resp B/P Pulse Ox O2 Delivery O2 Flow Rate FiO2 09/20/16 12:14 87 09/20/16 12:03 97.7 18 114/62 97 09/20/16 08:00 Nasal Cannula 09/20/16 07:52 2.0 09/16/16 17:09 32 Intake and Output 09/19/16 09/19/16 09/20/16 15:00 23:00 07:00 Intake Total 1296.2 ml 200 ml Balance 1296.2 ml 200 ml Exam GENERAL: presently sleeping but arousable, in restraints HEENT: Pupils equal, round, react to light. Extraocular muscles intact. NECK: Supple. No thyromegaly. LUNGS: Mild wheezes bilaterally in the bases. No rhonchi. CARDIOVASCULAR: S1, S2 heard. No rubs or gallops. ABDOMEN: Soft, nontender, nondistended. Normal bowel sounds. No rebound or guarding. MUSCULOSKELETAL: No lower extremity edema bilaterally. NEUROLOGIC: No focal deficits. Results Result Diagram: 09/20/16 0738 09/20/16 0738 Results 24 hrs Laboratory Tests Test 09/20/16 07:38 Anion Gap 17 H Basophils # 0.0 Basophils % 0.5 Blood Morphology Comment Blood Urea Nitrogen 6 L Calcium Level 8.9 Carbon Dioxide Level 28 Chloride Level 101 Creatinine 0.80 Eosinophils # 0.1 Eosinophils % 2.5 Glucose Level 80 Hematocrit 36.6 L Hemoglobin 12.4 L Lymphocytes # 1.2 Lymphocytes % 24.4 Mean Corpuscular Hemoglobin 34.2 H Mean Corpuscular Hemoglobin Concent 34.0 Mean Corpuscular Volume 100.4 Mean Platelet Volume 8.2 Monocytes # 0.7 Monocytes % 14.1 H Neutrophils # 2.8 Neutrophils % 58.5 Nucleated Red Blood Cells # 0.0 Nucleated Red Blood Cells % 0.0 Platelet Count 105 #L Potassium Level 3.6 Red Blood Count 3.64 L Red Cell Distribution Width 14.7 H Sodium Level 142 White Blood Count 4.8 Medications Medications Current Medications Ondansetron HCl (Zofran Inj) 4 mg Q6H PRN IV NAUSEA AND/OR VOMITING; Start at 17:30 Acetaminophen (Tylenol Tab) 650 mg Q6H PRN PO PAIN LEVEL 1-3 OR FEVER; Start 09/14/16 at 17:30 Acetaminophen/ Hydrocodone Bitart ([place] (5/325)) 1 tab Q6H PRN PO MODERATE PAIN LEVEL 4-6; Start 09/14/16 at 17:30 Morphine Sulfate (morphine) 2 mg Q4H PRN IV SEVERE PAIN LEVEL 7-10; Start at 17:30 Docusate Sodium (Colace) 100 mg Q12H PRN PO CONSTIPATION; Start 09/14/16 at 17 :30 Magnesium Hydroxide (Milk Of Mag) 30 ml DAILY PRN PO CONSTIPATION; Start 09/14 at 17:30 Sodium Biphosphate/ Sodium Phosphate (Fleet Enema) 133 ml DAILY PRN [place] CONSTIPATION; Start 09/14/16 at 17:30 Famotidine (Pepcid) 20 mg Q12 PO Last administered on 09/20/16 08:34; Admin Dose 20 MG; Start 09/14/16 at 21:00 Heparin Sodium (Porcine) 5000 unit 5,000 unit Q12 SC Last administered on 09/20 08:35; Admin Dose 5,000 UNIT; Start 09/14/16 at 21:00 Sodium Chloride (1/2 NS) 1,000 ml @ 75 mls/hr [id number] IV Last administered on 09/19/16at 04:01; Admin Dose 75 MLS/HR; Start 09/14/16 at 17:21 Hydralazine HCl (Apresoline) 10 mg Q6H PRN IV ELEVATED BLOOD PRESSURE Last administered on 09/15/16 23:04; Admin Dose 10 MG; Start 09/14/16 at 17:30 Nitroglycerin (Nitroglycerin (Sl Tab) 0.4 Mg) 1 tab Q5M PRN SL ANGINA; Start 09/14/16 at 17:30 Albuterol (Ventolin Hfa) 2 puff Q4H PRN INH WHEEZING AND SOB; Start 09/14/16 at 17:30 Atorvastatin Calcium (Lipitor) 5 mg DAILY@21 PO Last administered on at 21:38; Admin Dose 5 MG; Start 09/14/16 at 21:00 Salmeterol Xinafoate/ Fluticasone (Advair 250/50 Diskus) 1 inh BID INH Last administered on 09/20/16 08:40; Admin Dose 1 INH; Start 09/15/16 at 09:00 Albuterol (Ventolin Hfa) 2 puff Q4H PRN INH RESP DISTRESS/SOB/ETC......; Start 09/15/16 at 09:30 Amlodipine Besylate (Norvasc) 10 mg DAILY PO Last administered on 09/20/16 08 :35; Admin Dose 10 MG; Start 09/16/16 at 09:00 Isosorbide Mononitrate (Imdur) 30 mg DAILY PO Last administered on 09/20/16 08:35; Admin Dose 30 MG; Start 09/16/16 at 09:00 Metoprolol Succinate (Toprol Xl) 25 mg DAILY PO Last administered on 08:34; Admin Dose 25 MG; Start 09/16/16 at 09:00 Folic Acid (Folic Acid) 1 mg DAILY PO Last administered on 09/20/16 08:34; Admin Dose 1 MG; Start 09/16/16 at 09:00 Cyanocobalamin (Vitamin B12) 1,000 mcg DAILY PO Last administered on 08:33; Admin Dose 1,000 MCG; Start 09/16/16 at 09:00 Lorazepam 1 mg 1 mg Q1H PRN IV CONTROL WITHDRAWAL SYMPTOMS Last administered on 09/19/16 00:35; Admin Dose 1 MG; Start 09/15/16 at 19:30 Multivitamins/ Thiamine HCl/ Folic Acid/Sodium Chloride (Mvi-12 Adult/ Vitamin B1/Folic Acid/NS) 1,011.2 ml @ 125 mls/ hr DAILY@09 IVPB Last administered on 09/20/16 08:36; Admin Dose 125 MLS/HR; Start 09/16/16 at 09:00 Nicotine (Nicoderm 21 Mg/ 24hr) 1 patch DAILY TRANSDERM Last administered on 08:33; Admin Dose 1 PATCH; Start 09/16/16 at 09:00 Chlordiazepoxide (Librium) 25 mg BID PO Last administered on 09/20/16 08:39; Admin Dose 25 MG; Start 09/19/16 at 10:00 NITIN CORTEZ Sep 20, 2016 14:00
[2016-09-20] MEDS: ATORVASTATIN 10 MG TAB PO SCH (21:08)
[2016-09-21] VITALS (12 sets, daily range): BP systolic 106–183; BP diastolic 74–98; PULSE 85–107; RESP 16–20
[2016-09-21] MEDS: SOD CHLORIDE 0.45% 1,000 ML IV SCH ×3 (02:30→22:41)
[2016-09-21 07:38] LABS: BASOPHILS % 0.4 % (0.0-2.0); EOSINOPHILS # 0.1 10^3/ul (0.0-0.5); EOSINOPHILS % 1.7 % (0.0-7.0); HEMATOCRIT 37.6 % (42.0-52.0); HEMOGLOBIN 12.8 g/dl (14.0-18.0); LYMPHOCYTES % 21.3 % (15.0-51.0); MEAN CORPUSCULAR HEMOGLOBIN 33.7 pg (29.0-33.0); MEAN CORPUSCULAR HGB CONC 33.9 g/dl (32.0-37.0); MEAN CORPUSCULAR VOLUME 99.5 fl (82.0-101.0); MEAN PLATELET VOLUME 7.9 fl (7.4-10.4); MONOCYTE # 0.8 10^3/ul (0.3-0.9); MONOCYTES % 17.3 % (0.0-11.0); NEUTROPHIL # 2.8 10^3/ul (1.6-7.5); NEUTROPHILS % 59.3 % (39.0-77.0); PLATELET COUNT 126 10^3/UL (140-440); RED BLOOD COUNT 3.78 10^6/ul (4.70-6.10); RED CELL DISTRIBUTION WIDTH 14.8 % (11.5-14.5); UNCORRECTED WBC 4.7 10^3/ul (4.8-10.8); WHITE BLOOD COUNT 4.7 10^3/ul (4.8-10.8)
[2016-09-21 07:40] LABS: CONDITION 1; LH ANALYZER COMMENTS 1
[2016-09-21 07:46] LABS: POTASSIUM 3.6 mmol/L (3.5-5.1)
[2016-09-21 07:49] LABS: CALCIUM 9.4 mg/dl (8.4-10.2); CREATININE 0.81 mg/dl (0.61-1.24)
[2016-09-21] MEDS: NICOTINE (21 MG/24 HR) PATCH TRANSDERM SCH (08:46)
[2016-09-21] MEDS: CYANOCOBALAMIN 500 MCG TAB PO SCH (08:46)
[2016-09-21] MEDS: ISOSORBIDE MONONITRATE(SR)30 MG TAB PO SCH (08:47)
[2016-09-21] MEDS: AMLODIPINE 10 MG TAB PO SCH (08:47)
[2016-09-21] MEDS: METOPROLOL (XL) 25 MG TAB PO SCH (08:47)
[2016-09-21] MEDS: CHLORDIAZEPOXIDE 25 MG CAP PO SCH ×2 (08:47→21:10)
[2016-09-21] MEDS: FOLIC ACID 1 MG TAB PO SCH (08:47)
[2016-09-21] MEDS: FAMOTIDINE 20 MG TAB PO SCH ×2 (08:47→21:10)
[2016-09-21] MEDS: SALMETEROL/FLUTICASONE 250/50 INHA INH SCH ×2 (08:48→21:10)
[2016-09-21] MEDS: MULTIVITAMINS 10 ML, THIAMINE 100 MG, FOLIC ACID 1 MG in SOD CHLORIDE 0.9% 1,000 ML IVPB SCH (08:49)
--- NOTE | 2016-09-21 08:51 | PN ---
Date/Time of Note Date/Time of Note DATE: 09/21/16 TIME: 08:44 Assessment/Plan VTE Prophylaxis VTE Prophylaxis Intervention: heparin Lines/Catheters IV C[facility] Type (from [facility] Peripheral IV Urinary Cath still in place: No Assessment/Plan Assessment/Plan 70-year-old male coming in with a syncopal event with low blood sugars, EtOH intoxication, now in withdrawal. 1. Syncope - sec to EtOH intoxication; ethanol levels elevated and pt showing signs of alcohol withdrawal. Slowly improving from intoxication, somewhat lethargic the last 1-2 days, and librium dose and freq has been lowered. Ativan prn - bananna bag, librium to 25 mg BID, ativan prn - neuro checks every 4 hours. - f/u PT and OT consults as well. 2. Chronic obstructive pulmonary disease. He is on DuoNebs p.r.n. as well. Monitor for any signs of any shortness of breath. 3. Coronary artery disease. Blood pressure was high when he came in. Continue hydralazine p.r.n. EF 50% stage I diastolic dysfunction 4. Essential hypertension. restart home medications. 5. Essential tremors. Continue to monitor for now. 6. Hypoglycemia - A1c = 5.1 ETOH induced - improved - f/u endo consult rec's 7. Gastroesophageal reflux disease - H2 dacia. 8. Deep venous thrombosis prophylaxis. Heparin subQ dispo - f/u recs. as per clinical course. anticipate discharge next couple fo days. program services assistant consult. this progress note took greater than 30 minutes to complete Subjective 24 Hr Interval Summary Free Text/Dictation Patient had no overnight events. He is doing better. States he can eat. Spoke to the nurse about the care plan. 10 minutes spent. Exam/Review of Systems Vital Signs Vitals Vital Signs Date Time Temp Pulse Resp B/P Pulse Ox O2 Delivery O2 Flow Rate FiO2 09/21/16 06:00 97.8 98 18 157/89 94 Room Air 09/20/16 22:00 2.0 Intake and Output 09/20/16 09/20/16 09/21/16 15:00 23:00 07:00 Intake Total 1670 ml 1015 ml Balance 1670 ml 1015 ml Exam Gen Geovanna: NAD, alert to self and time, not to place HEENT: NC/AT, PERRLA, EOMI, no pharyngeal erythema, no tonsillar exudates, no lymphadenopathy, no JVD, no carotid bruits NECK: supple, no thyromegaly THORAX: symmetrical, no obvious deformities CV: S1S2, RRR, no M/G/R Lungs: CTAB no W/C/R/R Abd: soft, NT/ND, +BS, no rebound, no guarding, neg HSM EXT: no edema, no ecchymosis, no clubbing, FROM Neuro: CN II-XII grossly intact, mild tremors Psych: fair mood and affect Skin: C/D/I Results Result Diagram: 09/21/16 0700 09/21/16 0700 Results 24 hrs Laboratory Tests Test 09/21/16 07:00 Anion Gap 17 H Basophils # 0.0 Basophils % 0.4 Blood Morphology Comment Blood Urea Nitrogen 5 L Calcium Level 9.4 Carbon Dioxide Level 27 Chloride Level 103 Creatinine 0.81 Eosinophils # 0.1 Eosinophils % 1.7 Glucose Level 86 Hematocrit 37.6 L Hemoglobin 12.8 L Lymphocytes # 1.0 Lymphocytes % 21.3 Mean Corpuscular Hemoglobin 33.7 H Mean Corpuscular Hemoglobin Concent 33.9 Mean Corpuscular Volume 99.5 Mean Platelet Volume 7.9 Monocytes # 0.8 Monocytes % 17.3 H Neutrophils # 2.8 Neutrophils % 59.3 Nucleated Red Blood Cells # 0.0 Nucleated Red Blood Cells % 0.0 Platelet Count 126 L Potassium Level 3.6 Red Blood Count 3.78 L Red Cell Distribution Width 14.8 H Sodium Level 143 White Blood Count 4.7 L Medications Medications Current Medications Ondansetron HCl (Zofran Inj) 4 mg Q6H PRN IV NAUSEA AND/OR VOMITING; Start at 17:30 Acetaminophen (Tylenol Tab) 650 mg Q6H PRN PO PAIN LEVEL 1-3 OR FEVER; Start 09/14/16 at 17:30 Acetaminophen/ Hydrocodone Bitart ([place] (5/325)) 1 tab Q6H PRN PO MODERATE PAIN LEVEL 4-6; Start 09/14/16 at 17:30 Morphine Sulfate (morphine) 2 mg Q4H PRN IV SEVERE PAIN LEVEL 7-10; Start at 17:30 Docusate Sodium (Colace) 100 mg Q12H PRN PO CONSTIPATION; Start 09/14/16 at 17 :30 Magnesium Hydroxide (Milk Of Mag) 30 ml DAILY PRN PO CONSTIPATION; Start 09/14 at 17:30 Sodium Biphosphate/ Sodium Phosphate (Fleet Enema) 133 ml DAILY PRN [place] CONSTIPATION; Start 09/14/16 at 17:30 Famotidine (Pepcid) 20 mg Q12 PO Last administered on 09/20/16at 21:08; Admin Dose 20 MG; Start 09/14/16 at 21:00 Heparin Sodium (Porcine) 5000 unit 5,000 unit Q12 SC Last administered on 09/20at 21:14; Admin Dose 5,000 UNIT; Start 09/14/16 at 21:00 Sodium Chloride (1/2 NS) 1,000 ml @ 75 mls/hr [id number] IV Last administered on 09/21/16at 02:30; Admin Dose 75 MLS/HR; Start 09/14/16 at 17:21 Hydralazine HCl (Apresoline) 10 mg Q6H PRN IV ELEVATED BLOOD PRESSURE Last administered on 09/15/16at 23:04; Admin Dose 10 MG; Start 09/14/16 at 17:30 Nitroglycerin (Nitroglycerin (Sl Tab) 0.4 Mg) 1 tab Q5M PRN SL ANGINA; Start 09/14/16 at 17:30 Albuterol (Ventolin Hfa) 2 puff Q4H PRN INH WHEEZING AND SOB; Start 09/14/16 at 17:30 Atorvastatin Calcium (Lipitor) 5 mg DAILY@21 PO Last administered on at 21:08; Admin Dose 5 MG; Start 09/14/16 at 21:00 Salmeterol Xinafoate/ Fluticasone (Advair 250/50 Diskus) 1 inh BID INH Last administered on 09/20/16at 21:08; Admin Dose 1 INH; Start 09/15/16 at 09:00 Albuterol (Ventolin Hfa) 2 puff Q4H PRN INH RESP DISTRESS/SOB/ETC......; Start 09/15/16 at 09:30 Amlodipine Besylate (Norvasc) 10 mg DAILY PO Last administered on 09/20/16at 08 :35; Admin Dose 10 MG; Start 09/16/16 at 09:00 Isosorbide Mononitrate (Imdur) 30 mg DAILY PO Last administered on 09/20/16 08:35; Admin Dose 30 MG; Start 09/16/16 at 09:00 Metoprolol Succinate (Toprol Xl) 25 mg DAILY PO Last administered on 08:34; Admin Dose 25 MG; Start 09/16/16 at 09:00 Folic Acid (Folic Acid) 1 mg DAILY PO Last administered on 09/20/16 08:34; Admin Dose 1 MG; Start 09/16/16 at 09:00 Cyanocobalamin (Vitamin B12) 1,000 mcg DAILY PO Last administered on 08:33; Admin Dose 1,000 MCG; Start 09/16/16 at 09:00 Lorazepam 1 mg 1 mg Q1H PRN IV CONTROL WITHDRAWAL SYMPTOMS Last administered on 09/19/16 00:35; Admin Dose 1 MG; Start 09/15/16 at 19:30 Multivitamins/ Thiamine HCl/ Folic Acid/Sodium Chloride (Mvi-12 Adult/ Vitamin B1/Folic Acid/NS) 1,011.2 ml @ 125 mls/ hr DAILY@09 IVPB Last administered on 09/20/16 08:36; Admin Dose 125 MLS/HR; Start 09/16/16 at 09:00 Nicotine (Nicoderm 21 Mg/ 24hr) 1 patch DAILY TRANSDERM Last administered on 08:33; Admin Dose 1 PATCH; Start 09/16/16 at 09:00 Chlordiazepoxide (Librium) 25 mg BID PO Last administered on 09/20/16 21:08; Admin Dose 25 MG; Start 09/19/16 at 10:00 ASHIA MTZ MD Sep 21, 2016 08:50
[2016-09-21] MEDS: HEPARIN 5,000 UNIT/0.5 ML SYG SC SCH ×2 (09:02→21:15)
[2016-09-21] MEDS ORDERED: MAGNESIUM SULFATE 3 GM in SOD CHLORIDE 0.9% 100 ML IVPB ONE (16:00)
[2016-09-21] MEDS: ATORVASTATIN 10 MG TAB PO SCH (21:10)
[2016-09-22] VITALS (12 sets, daily range): BP systolic 126–170; BP diastolic 68–96; PULSE 84–103; RESP 18–20
[2016-09-22] MEDS: SOD CHLORIDE 0.45% 1,000 ML IV SCH (01:37)
[2016-09-22] MEDS: hydrALAzine 20 MG INJ IV PRN (02:38)
--- NOTE | 2016-09-22 08:52 | PN ---
Date/Time of Note Date/Time of Note DATE: 09/22/16 TIME: 08:42 Assessment/Plan VTE Prophylaxis VTE Prophylaxis Intervention: heparin Lines/Catheters IV C[facility]ter Type (from [facility]): Peripheral IV Urinary Cath still in place: No Assessment/Plan Assessment/Plan 70-year-old male coming in with a syncopal event with low blood sugars, EtOH intoxication, now in withdrawal. 1. Syncope - sec to ETOH intoxication; ethanol levels elevated and pt showing signs of alcohol withdrawal. Slowly improving from intoxication, somewhat lethargic the last 1-2 days, and librium dose and freq has been lowered. Ativan prn - bananna bag, librium to 25 mg BID, ativan prn - check ammonia level - neuro checks every 4 hours. - f/u PT and OT consults as well. 2. Chronic obstructive pulmonary disease. He is on DuoNebs p.r.n. as well. Monitor for any signs of any shortness of breath. 3. Coronary artery disease. Blood pressure was high when he came in. Continue hydralazine p.r.n. EF 50% stage I diastolic dysfunction 4. Essential hypertension. restart home medications. 5. Essential tremors. Continue to monitor for now. 6. Hypoglycemia - A1c = 5.1 ETOH induced - improved 7. Right eye conjunctivitis - cipro oph gtt - f/u endo consult rec's 8. Gastroesophageal reflux disease - H2 dacia. 9. Deep venous thrombosis prophylaxis. Heparin subQ dispo - f/u recs. as per clinical course. . vice president client services consult. this progress note took greater than 30 minutes to complete Subjective 24 Hr Interval Summary Free Text/Dictation Patient had no overnight events. As per nursing, patient is more confused today. Spoke to the patient about the care plan. 10 minutes spent. Exam/Review of Systems Vital Signs Vitals Vital Signs Date Time Temp Pulse Resp B/P Pulse Ox O2 Delivery O2 Flow Rate FiO2 09/22/16 06:00 97.8 92 20 126/68 98 Room Air 09/22/16 05:56 2.0 Intake and Output 09/21/16 09/21/16 09/22/16 15:00 23:00 07:00 Intake Total 300 ml 2435 ml 925 ml Balance 300 ml 2435 ml 925 ml Exam Gen Geovanna: NAD, alert to self, not to place HEENT: NC/AT, PERRLA, EOMI, no pharyngeal erythema, no tonsillar exudates, no lymphadenopathy, no JVD, no carotid bruits, right eye purulent discharge NECK: supple, no thyromegaly THORAX: symmetrical, no obvious deformities CV: S1S2, RRR, no M/G/R Lungs: CTAB no W/C/R/R Abd: soft, NT/ND, +BS, no rebound, no guarding, neg HSM EXT: no edema, no ecchymosis, no clubbing, FROM Neuro: CN II-XII grossly intact, mild tremors Psych: confused, difficulty with articulation Skin: C/D/I Results Result Diagram: 09/21/16 0700 09/21/16 0700 Medications Medications Current Medications Ondansetron HCl (Zofran Inj) 4 mg Q6H PRN IV NAUSEA AND/OR VOMITING; Start at 17:30 Acetaminophen (Tylenol Tab) 650 mg Q6H PRN PO PAIN LEVEL 1-3 OR FEVER; Start 09/14/16 at 17:30 Acetaminophen/ Hydrocodone Bitart ([place] (5/325)) 1 tab Q6H PRN PO MODERATE PAIN LEVEL 4-6; Start 09/14/16 at 17:30 Morphine Sulfate (morphine) 2 mg Q4H PRN IV SEVERE PAIN LEVEL 7-10; Start at 17:30 Docusate Sodium (Colace) 100 mg Q12H PRN PO CONSTIPATION; Start 09/14/16 at 17 :30 Magnesium Hydroxide (Milk Of Mag) 30 ml DAILY PRN PO CONSTIPATION; Start 09/14 at 17:30 Sodium Biphosphate/ Sodium Phosphate (Fleet Enema) 133 ml DAILY PRN [place] CONSTIPATION; Start 09/14/16 at 17:30 Famotidine (Pepcid) 20 mg Q12 PO Last administered on 09/21/16at 21:10; Admin Dose 20 MG; Start 09/14/16 at 21:00 Heparin Sodium (Porcine) 5000 unit 5,000 unit Q12 SC Last administered on 09/21at 21:15; Admin Dose 5,000 UNIT; Start 09/14/16 at 21:00 Sodium Chloride (1/2 NS) 1,000 ml @ 75 mls/hr [id number] IV Last administered on 09/22/16 01:37; Admin Dose 75 MLS/HR; Start 09/14/16 at 17:21 Hydralazine HCl (Apresoline) 10 mg Q6H PRN IV ELEVATED BLOOD PRESSURE Last administered on 09/22/16 02:38; Admin Dose 10 MG; Start 09/14/16 at 17:30 Nitroglycerin (Nitroglycerin (Sl Tab) 0.4 Mg) 1 tab Q5M PRN SL ANGINA; Start 09/14/16 at 17:30 Albuterol (Ventolin Hfa) 2 puff Q4H PRN INH WHEEZING AND SOB; Start 09/14/16 at 17:30 Atorvastatin Calcium (Lipitor) 5 mg DAILY@21 PO Last administered on at 21:10; Admin Dose 5 MG; Start 09/14/16 at 21:00 Salmeterol Xinafoate/ Fluticasone (Advair 250/50 Diskus) 1 inh BID INH Last administered on 09/21/16at 21:10; Admin Dose 1 INH; Start 09/15/16 at 09:00 Albuterol (Ventolin Hfa) 2 puff Q4H PRN INH RESP DISTRESS/SOB/ETC......; Start 09/15/16 at 09:30 Amlodipine Besylate (Norvasc) 10 mg DAILY PO Last administered on 09/21/16 08 :47; Admin Dose 10 MG; Start 09/16/16 at 09:00 Isosorbide Mononitrate (Imdur) 30 mg DAILY PO Last administered on 09/21/16 08:47; Admin Dose 30 MG; Start 09/16/16 at 09:00 Metoprolol Succinate (Toprol Xl) 25 mg DAILY PO Last administered on 08:47; Admin Dose 25 MG; Start 09/16/16 at 09:00 Folic Acid (Folic Acid) 1 mg DAILY PO Last administered on 09/21/16 08:47; Admin Dose 1 MG; Start 09/16/16 at 09:00 Cyanocobalamin (Vitamin B12) 1,000 mcg DAILY PO Last administered on 08:46; Admin Dose 1,000 MCG; Start 09/16/16 at 09:00 Lorazepam 1 mg 1 mg Q1H PRN IV CONTROL WITHDRAWAL SYMPTOMS Last administered on 09/19/16 00:35; Admin Dose 1 MG; Start 09/15/16 at 19:30 Multivitamins/ Thiamine HCl/ Folic Acid/Sodium Chloride (Mvi-12 Adult/ Vitamin B1/Folic Acid/NS) 1,011.2 ml @ 125 mls/ hr DAILY@09 IVPB Last administered on 09/21/16 08:49; Admin Dose 125 MLS/HR; Start 09/16/16 at 09:00 Nicotine (Nicoderm 21 Mg/ 24hr) 1 patch DAILY TRANSDERM Last administered on 08:46; Admin Dose 1 PATCH; Start 09/16/16 at 09:00 Chlordiazepoxide (Librium) 25 mg BID PO Last administered on 09/21/16at 21:10; Admin Dose 25 MG; Start 09/19/16 at 10:00 ASHIA MTZ MD Sep 22, 2016 08:51
[2016-09-22 09:14] LABS: HEMATOCRIT 40.2 % (42.0-52.0); HEMOGLOBIN 13.6 g/dl (14.0-18.0); MEAN CORPUSCULAR HEMOGLOBIN 33.8 pg (29.0-33.0); MEAN CORPUSCULAR HGB CONC 33.9 g/dl (32.0-37.0); MEAN CORPUSCULAR VOLUME 99.7 fl (82.0-101.0); MEAN PLATELET VOLUME 7.8 fl (7.4-10.4); PLATELET COUNT 160 10^3/UL (140-440); RED BLOOD COUNT 4.03 10^6/ul (4.70-6.10); RED CELL DISTRIBUTION WIDTH 14.5 % (11.5-14.5); UNCORRECTED WBC 4.1 10^3/ul (4.8-10.8); WHITE BLOOD COUNT 4.1 10^3/ul (4.8-10.8)
[2016-09-22 09:22] LABS: POTASSIUM 3.6 mmol/L (3.5-5.1)
[2016-09-22 09:24] LABS: CREATININE 0.79 mg/dl (0.61-1.24)
[2016-09-22 09:28] LABS: SUSPECT 1
[2016-09-22 09:29] LABS: CONDITION 1; LH ANALYZER COMMENTS 1
[2016-09-22] MEDS: METOPROLOL (XL) 25 MG TAB PO SCH (09:33)
[2016-09-22] MEDS: CIPROFLOXACIN 0.3% 3.5 GM OPH OINT RIGHT EYE SCH ×2 (09:33→21:22)
[2016-09-22] MEDS: FOLIC ACID 1 MG TAB PO SCH (09:34)
[2016-09-22] MEDS: ISOSORBIDE MONONITRATE(SR)30 MG TAB PO SCH (09:34)
[2016-09-22] MEDS: FAMOTIDINE 20 MG TAB PO SCH ×2 (09:34→21:22)
[2016-09-22] MEDS: AMLODIPINE 10 MG TAB PO SCH (09:34)
[2016-09-22] MEDS: CYANOCOBALAMIN 500 MCG TAB PO SCH (09:34)
[2016-09-22] MEDS: NICOTINE (21 MG/24 HR) PATCH TRANSDERM SCH (09:35)
[2016-09-22] MEDS: CHLORDIAZEPOXIDE 25 MG CAP PO SCH ×2 (09:36→21:22)
[2016-09-22] MEDS: MULTIVITAMINS 10 ML, THIAMINE 100 MG, FOLIC ACID 1 MG in SOD CHLORIDE 0.9% 1,000 ML IVPB SCH (09:36)
[2016-09-22] MEDS: SALMETEROL/FLUTICASONE 250/50 INHA INH SCH ×2 (09:42→21:21)
[2016-09-22] MEDS: HEPARIN 5,000 UNIT/0.5 ML SYG SC SCH ×2 (09:47→21:25)
[2016-09-22 11:30] LABS: EOSINOPHILS # 0.1 10^3/ul (0.0-0.5); LYMPHOCYTES # 1.3 10^3/ul (0.8-2.9); MONOCYTE # 0.7 10^3/ul (0.3-0.9); NEUTROPHIL # 1.9 10^3/ul (1.6-7.5)
[2016-09-22] MEDS: ATORVASTATIN 10 MG TAB PO SCH (21:22)
[2016-09-23] VITALS (13 sets, daily range): BP systolic 120–163; BP diastolic 66–94; PULSE 85–102; RESP 14–20
[2016-09-23] MEDS: SOD CHLORIDE 0.45% 1,000 ML IV SCH ×3 (00:31→21:35)
[2016-09-23] MEDS: hydrALAzine 20 MG INJ IV PRN (04:27)
[2016-09-23] MEDS: MULTIVITAMINS 10 ML, THIAMINE 100 MG, FOLIC ACID 1 MG in SOD CHLORIDE 0.9% 1,000 ML IVPB SCH (08:46)
[2016-09-23] MEDS: ISOSORBIDE MONONITRATE(SR)30 MG TAB PO SCH (08:48)
[2016-09-23] MEDS: CYANOCOBALAMIN 500 MCG TAB PO SCH (08:48)
[2016-09-23] MEDS: FAMOTIDINE 20 MG TAB PO SCH ×2 (08:50→21:36)
[2016-09-23] MEDS: FOLIC ACID 1 MG TAB PO SCH (08:50)
[2016-09-23] MEDS: AMLODIPINE 10 MG TAB PO SCH (08:51)
[2016-09-23] MEDS: SALMETEROL/FLUTICASONE 250/50 INHA INH SCH ×2 (08:51→21:36)
[2016-09-23] MEDS: METOPROLOL (XL) 25 MG TAB PO SCH (08:51)
[2016-09-23] MEDS: CIPROFLOXACIN 0.3% 3.5 GM OPH OINT RIGHT EYE SCH ×2 (08:52→21:36)
[2016-09-23] MEDS: HEPARIN 5,000 UNIT/0.5 ML SYG SC SCH ×2 (08:54→21:39)
[2016-09-23] MEDS: NICOTINE (21 MG/24 HR) PATCH TRANSDERM SCH (08:57)
--- NOTE | 2016-09-23 09:16 | PN ---
Date/Time of Note Date/Time of Note DATE: 09/23/16 TIME: 08:58 Assessment/Plan VTE Prophylaxis VTE Prophylaxis Intervention: SCD's Lines/Catheters IV [facility] Type (from [facility]): Peripheral IV Urinary Cath still in place: No Assessment/Plan Assessment/Plan 70-year-old male coming in with a syncopal event with low blood sugars, EtOH intoxication, now in withdrawal. 1. Syncope - sec to ETOH intoxication; ethanol levels elevated and pt showing signs of alcohol withdrawal. Slowly improving from intoxication, somewhat lethargic the last 1-2 days, - banana bag, librium to 25 mg BID, ativan prn - ammonia level < 0 - neuro checks every 4 hours. - f/u PT and OT consults as well. - neuro consulted for further evaluation 2. Chronic obstructive pulmonary disease. He is on DuoNebs p.r.n. as well. Monitor for any signs of any shortness of breath. 3. Coronary artery disease. Blood pressure was high when he came in. Continue hydralazine p.r.n. EF 50% stage I diastolic dysfunction 4. Essential hypertension. restart home medications. 5. Essential tremors. Continue to monitor for now. 6. Hypoglycemia - A1c = 5.1 ETOH induced - improved 7. Right eye conjunctivitis - cipro oph gtt - f/u endo consult rec's 8. Gastroesophageal reflux disease - H2 dacia. 9. Deep venous thrombosis prophylaxis. Heparin subQ dispo - f/u recs. as per clinical course. . guest services manager consult. Neuro consult this progress note took greater than 20 minutes to complete Subjective 24 Hr Interval Summary Free Text/Dictation Patient had no overnight events. Spoke to the nurse about the care plan. 10 minutes spent. Exam/Review of Systems Vital Signs Vitals Vital Signs Date Time Temp Pulse Resp B/P Pulse Ox O2 Delivery O2 Flow Rate FiO2 09/23/16 06:00 97.9 89 18 126/80 95 Room Air 09/22/16 05:56 2.0 Intake and Output 09/22/16 09/22/16 09/23/16 15:00 23:00 07:00 Intake Total 2087 ml 1130 ml Balance 2087 ml 1130 ml Exam Gen Geovanna: NAD, alert to self, time but place HEENT: NC/AT, PERRLA, EOMI, no pharyngeal erythema, no tonsillar exudates, no lymphadenopathy, no JVD, no carotid bruits, right eye purulent discharge - improving NECK: supple, no thyromegaly THORAX: symmetrical, no obvious deformities CV: S1S2, RRR, no M/G/R Lungs: CTAB no W/C/R/R Abd: soft, NT/ND, +BS, no rebound, no guarding, neg HSM EXT: no edema, no ecchymosis, no clubbing, FROM Neuro: CN II-XII grossly intact, mild tremors Psych: confused, difficulty with articulation Skin: C/D/I Results Result Diagram: 09/22/1684409/22/16844 Medications Medications Current Medications Ondansetron HCl (Zofran Inj) 4 mg Q6H PRN IV NAUSEA AND/OR VOMITING; Start at 17:30 Acetaminophen (Tylenol Tab) 650 mg Q6H PRN PO PAIN LEVEL 1-3 OR FEVER; Start 09/14/16 at 17:30 Acetaminophen/ Hydrocodone Bitart ([place] (5/325)) 1 tab Q6H PRN PO MODERATE PAIN LEVEL 4-6; Start 09/14/16 at 17:30 Morphine Sulfate (morphine) 2 mg Q4H PRN IV SEVERE PAIN LEVEL 7-10; Start at 17:30 Docusate Sodium (Colace) 100 mg Q12H PRN PO CONSTIPATION; Start 09/14/16 at 17 :30 Magnesium Hydroxide (Milk Of Mag) 30 ml DAILY PRN PO CONSTIPATION; Start 09/14 at 17:30 Sodium Biphosphate/ Sodium Phosphate (Fleet Enema) 133 ml DAILY PRN [place] CONSTIPATION; Start 09/14/16 at 17:30 Famotidine (Pepcid) 20 mg Q12 PO Last administered on 09/23/16at 08:50; Admin Dose 20 MG; Start 09/14/16 at 21:00 Heparin Sodium (Porcine) 5000 unit 5,000 unit Q12 SC Last administered on 09/23at 08:54; Admin Dose 5,000 UNIT; Start 09/14/16 at 21:00 Sodium Chloride (1/2 NS) 1,000 ml @ 75 mls/hr [id number] IV Last administered on 09/23/16at 00:31; Admin Dose 75 MLS/HR; Start 09/14/16 at 17:21 Hydralazine HCl (Apresoline) 10 mg Q6H PRN IV ELEVATED BLOOD PRESSURE Last administered on 09/23/16 04:27; Admin Dose 10 MG; Start 09/14/16 at 17:30 Nitroglycerin (Nitroglycerin (Sl Tab) 0.4 Mg) 1 tab Q5M PRN SL ANGINA; Start 09/14/16 at 17:30 Albuterol (Ventolin Hfa) 2 puff Q4H PRN INH WHEEZING AND SOB; Start 09/14/16 at 17:30 Atorvastatin Calcium (Lipitor) 5 mg DAILY@21 PO Last administered on 21:22; Admin Dose 5 MG; Start 09/14/16 at 21:00 Salmeterol Xinafoate/ Fluticasone (Advair 250/50 Diskus) 1 inh BID INH Last administered on 09/23/16 08:51; Admin Dose 1 INH; Start 09/15/16 at 09:00 Albuterol (Ventolin Hfa) 2 puff Q4H PRN INH RESP DISTRESS/SOB/ETC......; Start 09/15/16 at 09:30 Amlodipine Besylate (Norvasc) 10 mg DAILY PO Last administered on 09/23/16 08 :51; Admin Dose 10 MG; Start 09/16/16 at 09:00 Isosorbide Mononitrate (Imdur) 30 mg DAILY PO Last administered on 09/23/16 08:48; Admin Dose 30 MG; Start 09/16/16 at 09:00 Metoprolol Succinate (Toprol Xl) 25 mg DAILY PO Last administered on 08:51; Admin Dose 25 MG; Start 09/16/16 at 09:00 Folic Acid (Folic Acid) 1 mg DAILY PO Last administered on 09/23/16 08:50; Admin Dose 1 MG; Start 09/16/16 at 09:00 Cyanocobalamin (Vitamin B12) 1,000 mcg DAILY PO Last administered on 08:48; Admin Dose 1,000 MCG; Start 09/16/16 at 09:00 Lorazepam 1 mg 1 mg Q1H PRN IV CONTROL WITHDRAWAL SYMPTOMS Last administered on 09/19/16 00:35; Admin Dose 1 MG; Start 09/15/16 at 19:30 Multivitamins/ Thiamine HCl/ Folic Acid/Sodium Chloride (Mvi-12 Adult/ Vitamin B1/Folic Acid/NS) 1,011.2 ml @ 125 mls/ hr DAILY@09 IVPB Last administered on 09/23/16at 08:46; Admin Dose 125 MLS/HR; Start 09/16/16 at 09:00 Nicotine (Nicoderm 21 Mg/ 24hr) 1 patch DAILY TRANSDERM Last administered on at 08:57; Admin Dose 1 PATCH; Start 09/16/16 at 09:00 Chlordiazepoxide (Librium) 25 mg BID PO Last administered on 09/22/16at 21:22; Admin Dose 25 MG; Start 09/19/16 at 10:00 Ciprofloxacin HCl (Ciloxan 0.3% Oph Oint) 1 applic BID RIGHT EYE Last administered on 09/23/16at 08:52; Admin Dose 1 APPLIC; Start 09/22/16 at 09:00 ; Stop 09/26/16 at 08:59 ASHIA MTZ MD Sep 23, 2016 09:08
[2016-09-23] MEDS: CHLORDIAZEPOXIDE 25 MG CAP PO SCH ×2 (09:17→21:35)
--- NOTE | 2016-09-23 15:27 | CONS ---
Date/Time of Note Date/Time of Note DATE: 09/23/16 TIME: 15:17 Assessment/Plan Assessment/Plan Chief Complaint/Hosp Course 70 y/o M with hx of CAD, essential hypertension, essential tremors, alcohol abuse admitted with syncopal event and hypoglycemia undergoing treatment for alcohol withdrawal. -Recommend MRI Brain without contrast -Routine EEG to be done tomorrow morning for further evaluation of encephalopathy -consider treatment with higher dose of Thiamine 500 mg IV TID for 3 days -will continue to follow Problems: Consultation Date/Type/Reason Admit Date/Time Sep 14, 2016 at 15:19 Date of Consultation: Sep 23, 2016 Type of Consultation: neurology Reason for Consultation persistent encephalopathy Referring Provider: ASHIA MTZ MD Hx of Present Illness 70 year old M with hx of COPD, CAD, essential hypertension, essential tremors, alcohol abuse admitted with syncopal episodes with hypoglycemia and symptoms of alcohol withdrawal currently receiving Librium taper and CIWA protocol with persistent encephalopathy. CTH shows lacunar infarcts, chronic microvascular changes. Constitutional: disoriented, no complaints Respiratory: no complaints Cardiovascular: no complaints Gastrointestinal: no complaints Genitourinary: no complaints Musculoskeletal: no complaints Skin: no complaints Neurologic: no complaints Endocrine: no complaints Lymphatic: no complaints Past Surgical History Past Surgical Hx: noncontributory Social History Alcohol Use: heavy Smoking Status: Current every day smoker Drug Use: none Exam/Review of Systems Vital Signs Vitals Vital Signs Date Time Temp Pulse Resp B/P Pulse Ox O2 Delivery O2 Flow Rate FiO2 09/23/16 14:00 98.6 95 14 138/86 95 Room Air 09/22/16 05:56 2.0 Intake and Output 09/22/16 09/22/16 09/23/16 15:00 23:00 07:00 Intake Total 2087 ml 1130 ml Balance 2087 ml 1130 ml Exam patient is drowsy, minimally opens his eyes falls back asleep limited verbalization, dysarthric speech not answering questions appropriately or following commands CN: pupils constricted 1mm b/l no no nystagmus noted on primary gaze, no facial asymmetry Motor: withdraws to noxious in all four extremities Results Result Diagram: 09/22/16 0845 09/22/16 0845 Medications Medications Current Medications Ondansetron HCl (Zofran Inj) 4 mg Q6H PRN IV NAUSEA AND/OR VOMITING; Start at 17:30 Acetaminophen (Tylenol Tab) 650 mg Q6H PRN PO PAIN LEVEL 1-3 OR FEVER; Start 09/14/16 at 17:30 Acetaminophen/ Hydrocodone Bitart ([place] (5/325)) 1 tab Q6H PRN PO MODERATE PAIN LEVEL 4-6; Start 09/14/16 at 17:30 Morphine Sulfate (morphine) 2 mg Q4H PRN IV SEVERE PAIN LEVEL 7-10; Start at 17:30 Docusate Sodium (Colace) 100 mg Q12H PRN PO CONSTIPATION; Start 09/14/16 at 17 :30 Magnesium Hydroxide (Milk Of Mag) 30 ml DAILY PRN PO CONSTIPATION; Start 09/14 at 17:30 Sodium Biphosphate/ Sodium Phosphate (Fleet Enema) 133 ml DAILY PRN [place] CONSTIPATION; Start 09/14/16 at 17:30 Famotidine (Pepcid) 20 mg Q12 PO Last administered on 09/23/16at 08:50; Admin Dose 20 MG; Start 09/14/16 at 21:00 Heparin Sodium (Porcine) 5000 unit 5,000 unit Q12 SC Last administered on 09/23at 08:54; Admin Dose 5,000 UNIT; Start 09/14/16 at 21:00 Sodium Chloride (1/2 NS) 1,000 ml @ 75 mls/hr [id number] IV Last administered on 09/23/16at 00:31; Admin Dose 75 MLS/HR; Start 09/14/16 at 17:21 Hydralazine HCl (Apresoline) 10 mg Q6H PRN IV ELEVATED BLOOD PRESSURE Last administered on 09/23/16at 04:27; Admin Dose 10 MG; Start 09/14/16 at 17:30 Nitroglycerin (Nitroglycerin (Sl Tab) 0.4 Mg) 1 tab Q5M PRN SL ANGINA; Start 09/14/16 at 17:30 Albuterol (Ventolin Hfa) 2 puff Q4H PRN INH WHEEZING AND SOB; Start 09/14/16 at 17:30 Atorvastatin Calcium (Lipitor) 5 mg DAILY@21 PO Last administered on at 21:22; Admin Dose 5 MG; Start 09/14/16 at 21:00 Salmeterol Xinafoate/ Fluticasone (Advair 250/50 Diskus) 1 inh BID INH Last administered on 09/23/16 08:51; Admin Dose 1 INH; Start 09/15/16 at 09:00 Albuterol (Ventolin Hfa) 2 puff Q4H PRN INH RESP DISTRESS/SOB/ETC......; Start 09/15/16 at 09:30 Amlodipine Besylate (Norvasc) 10 mg DAILY PO Last administered on 09/23/16 08 :51; Admin Dose 10 MG; Start 09/16/16 at 09:00 Isosorbide Mononitrate (Imdur) 30 mg DAILY PO Last administered on 09/23/16 08:48; Admin Dose 30 MG; Start 09/16/16 at 09:00 Metoprolol Succinate (Toprol Xl) 25 mg DAILY PO Last administered on 08:51; Admin Dose 25 MG; Start 09/16/16 at 09:00 Folic Acid (Folic Acid) 1 mg DAILY PO Last administered on 09/23/16 08:50; Admin Dose 1 MG; Start 09/16/16 at 09:00 Cyanocobalamin (Vitamin B12) 1,000 mcg DAILY PO Last administered on 08:48; Admin Dose 1,000 MCG; Start 09/16/16 at 09:00 Lorazepam 1 mg 1 mg Q1H PRN IV CONTROL WITHDRAWAL SYMPTOMS Last administered on 09/19/16 00:35; Admin Dose 1 MG; Start 09/15/16 at 19:30 Multivitamins/ Thiamine HCl/ Folic Acid/Sodium Chloride (Mvi-12 Adult/ Vitamin B1/Folic Acid/NS) 1,011.2 ml @ 125 mls/ hr DAILY@09 IVPB Last administered on 09/23/16 08:46; Admin Dose 125 MLS/HR; Start 09/16/16 at 09:00 Nicotine (Nicoderm 21 Mg/ 24hr) 1 patch DAILY TRANSDERM Last administered on 08:57; Admin Dose 1 PATCH; Start 09/16/16 at 09:00 Chlordiazepoxide (Librium) 25 mg BID PO Last administered on 09/23/16 09:17; Admin Dose 25 MG; Start 09/19/16 at 10:00 Ciprofloxacin HCl (Ciloxan 0.3% Oph Oint) 1 applic BID RIGHT EYE Last administered on 09/23/16at 08:52; Admin Dose 1 APPLIC; Start 09/22/16 at 09:00 ; Stop 09/26/16 at 08:59 EDUARDO ERNST MD Sep 23, 2016 15:26
[2016-09-23] MEDS: ATORVASTATIN 10 MG TAB PO SCH (21:36)
[2016-09-24] VITALS (12 sets, daily range): BP systolic 117–163; BP diastolic 65–84; PULSE 83–98; RESP 16–18
[2016-09-24 05:32] LABS: ALBUMIN 3.2 g/dl (3.3-4.9); POTASSIUM 3.4 mmol/L (3.5-5.1)
[2016-09-24 05:34] LABS: BASOPHILS % 0.3 % (0.0-2.0); EOSINOPHILS # 0.1 10^3/ul (0.0-0.5); EOSINOPHILS % 1.5 % (0.0-7.0); HEMATOCRIT 36.8 % (42.0-52.0); HEMOGLOBIN 12.4 g/dl (14.0-18.0); LYMPHOCYTES # 1.1 10^3/ul (0.8-2.9); LYMPHOCYTES % 25.2 % (15.0-51.0); MEAN CORPUSCULAR HGB CONC 33.8 g/dl (32.0-37.0); MEAN CORPUSCULAR VOLUME 100.5 fl (82.0-101.0); MONOCYTE # 0.9 10^3/ul (0.3-0.9); MONOCYTES % 19.7 % (0.0-11.0); NEUTROPHIL # 2.4 10^3/ul (1.6-7.5); NEUTROPHILS % 53.3 % (39.0-77.0); PLATELET COUNT 166 10^3/UL (140-440); RED BLOOD COUNT 3.66 10^6/ul (4.70-6.10); RED CELL DISTRIBUTION WIDTH 15.1 % (11.5-14.5); UNCORRECTED WBC 4.5 10^3/ul (4.8-10.8); WHITE BLOOD COUNT 4.5 10^3/ul (4.8-10.8)
[2016-09-24 05:35] LABS: BILIRUBIN,INDIRECT 0.5 mg/dl (0-1.1); BILIRUBIN,TOTAL 0.5 mg/dl (0.2-1.3); CREATININE 0.83 mg/dl (0.61-1.24); TOTAL PROTEIN 6.4 g/dl (6.1-8.1)
[2016-09-24 05:54] LABS: CONDITION 1; LH ANALYZER COMMENTS 1
[2016-09-24] MEDS: FOLIC ACID 1 MG TAB PO SCH (09:30)
[2016-09-24] MEDS: AMLODIPINE 10 MG TAB PO SCH (09:30)
[2016-09-24] MEDS: CYANOCOBALAMIN 500 MCG TAB PO SCH (09:30)
[2016-09-24] MEDS: FAMOTIDINE 20 MG TAB PO SCH ×2 (09:30→22:03)
[2016-09-24] MEDS: ISOSORBIDE MONONITRATE(SR)30 MG TAB PO SCH (09:31)
[2016-09-24] MEDS: METOPROLOL (XL) 25 MG TAB PO SCH (09:31)
[2016-09-24] MEDS: MULTIVITAMINS IVPB SCH (09:32)
[2016-09-24] MEDS: FOLIC ACID IVPB SCH (09:32)
[2016-09-24] MEDS: THIAMINE IVPB SCH (09:32)
[2016-09-24] MEDS: NICOTINE (21 MG/24 HR) PATCH TRANSDERM SCH (09:32)
[2016-09-24] MEDS: SOD CHLORIDE 0.9% IVPB SCH (09:32)
[2016-09-24] MEDS: CIPROFLOXACIN 0.3% 3.5 GM OPH OINT RIGHT EYE SCH ×2 (09:37→22:03)
[2016-09-24] MEDS: SALMETEROL/FLUTICASONE 250/50 INHA INH SCH ×2 (09:37→22:02)
[2016-09-24] MEDS: HEPARIN 5,000 UNIT/0.5 ML SYG SC SCH ×2 (09:40→22:13)
[2016-09-24] MEDS: CHLORDIAZEPOXIDE 25 MG CAP PO SCH ×2 (09:42→22:03)
--- NOTE | 2016-09-24 09:59 | PN ---
Date/Time of Note Date/Time of Note DATE: 09/24/16 TIME: 09:55 Assessment/Plan VTE Prophylaxis VTE Prophylaxis Intervention: heparin Lines/Catheters IV C[facility]ter Type ([facility] Peripheral IV Urinary Cath still in place: No Assessment/Plan Assessment/Plan 70-year-old male coming in with a syncopal event with low blood sugars, EtOH intoxication, now in withdrawal. 1. Syncope - sec to ETOH intoxication - Wernicke's encephalopathy; ethanol levels elevated and pt showing signs of alcohol withdrawal. Slowly improving from intoxication, somewhat lethargic the last 1-2 days, thiamine 500 mg to be given 3 days - banana bag, librium to 25 mg BID, ativan prn - ammonia level < 0 - neuro checks every 4 hours. - f/u PT and OT consults as well. - neuro consulted for further evaluation 2. Chronic obstructive pulmonary disease. He is on DuoNebs p.r.n. as well. Monitor for any signs of any shortness of breath. 3. Coronary artery disease. Blood pressure was high when he came in. Continue hydralazine p.r.n. EF 50% stage I diastolic dysfunction 4. Essential hypertension. restart home medications. 5. Essential tremors. Continue to monitor for now. 6. Hypoglycemia - A1c = 5.1 ETOH induced - improved 7. Right eye conjunctivitis - cipro oph gtt - f/u endo consult rec's 8. Gastroesophageal reflux disease - H2 dacia. 9. Deep venous thrombosis prophylaxis. Heparin subQ dispo - f/u recs. as per clinical course. . relocation services specialist consult. Neuro consult this progress note took greater than 20 minutes to complete Subjective 24 Hr Interval Summary Free Text/Dictation Patient had no overnight events. Spoke to the nurse about the care plan. 10 minutes spent. Exam/Review of Systems Vital Signs Vitals Vital Signs Date Time Temp Pulse Resp B/P Pulse Ox O2 Delivery O2 Flow Rate FiO2 09/24/16 08:00 97.8 83 16 117/65 96 Room Air 09/23/16 18:12 21 09/22/16 05:56 2.0 Intake and Output 09/23/16 09/23/16 09/24/16 14:59 22:59 06:59 Intake Total 2071.2 ml 795 ml Balance 2071.2 ml 795 ml Exam Gen Geovanna: NAD, alert to self, time but place HEENT: NC/AT, PERRLA, EOMI, no pharyngeal erythema, no tonsillar exudates, no lymphadenopathy, no JVD, no carotid bruits, right eye purulent discharge - improving NECK: supple, no thyromegaly THORAX: symmetrical, no obvious deformities CV: S1S2, RRR, no M/G/R Lungs: CTAB no W/C/R/R Abd: soft, NT/ND, +BS, no rebound, no guarding, neg HSM EXT: no edema, no ecchymosis, no clubbing, FROM Neuro: CN II-XII grossly intact, mild tremors Psych: confused, difficulty with articulation Skin: C/D/I Results Result Diagram: 09/24/1644409/24/16444 Results 24 hrs Laboratory Tests Test 09/24/16 04:45 Alanine Aminotransferase (ALT/SGPT) 68 Albumin 3.2 L Albumin/Globulin Ratio 1.00 Alkaline Phosphatase 48 Anion Gap 14 Aspartate Amino Transf (AST/SGOT) 35 Basophils # 0.0 Basophils % 0.3 Blood Morphology Comment Blood Urea Nitrogen 5 L Calcium Level 9.0 Carbon Dioxide Level 25 Chloride Level 108 Creatinine 0.83 Direct Bilirubin 0.00 Eosinophils # 0.1 Eosinophils % 1.5 Globulin 3.20 Glucose Level 90 Hematocrit 36.8 L Hemoglobin 12.4 L Indirect Bilirubin 0.5 Lymphocytes # 1.1 Lymphocytes % 25.2 Mean Corpuscular Hemoglobin 34.0 H Mean Corpuscular Hemoglobin Concent 33.8 Mean Corpuscular Volume 100.5 Mean Platelet Volume 8.0 Monocytes # 0.9 Monocytes % 19.7 H Neutrophils # 2.4 Neutrophils % 53.3 Nucleated Red Blood Cells # 0.0 Nucleated Red Blood Cells % 0.0 Platelet Count 166 Potassium Level 3.4 L Red Blood Count 3.66 L Red Cell Distribution Width 15.1 H Sodium Level 144 Total Bilirubin 0.5 Total Protein 6.4 White Blood Count 4.5 L Medications Medications Current Medications Ondansetron HCl (Zofran Inj) 4 mg Q6H PRN IV NAUSEA AND/OR VOMITING; Start at 17:30 Acetaminophen (Tylenol Tab) 650 mg Q6H PRN PO PAIN LEVEL 1-3 OR FEVER; Start 09/14/16 at 17:30 Acetaminophen/ Hydrocodone Bitart ([place] (5/325)) 1 tab Q6H PRN PO MODERATE PAIN LEVEL 4-6; Start 09/14/16 at 17:30 Morphine Sulfate (morphine) 2 mg Q4H PRN IV SEVERE PAIN LEVEL 7-10; Start at 17:30 Docusate Sodium (Colace) 100 mg Q12H PRN PO CONSTIPATION; Start 09/14/16 at 17 :30 Magnesium Hydroxide (Milk Of Mag) 30 ml DAILY PRN PO CONSTIPATION; Start 09/14 at 17:30 Sodium Biphosphate/ Sodium Phosphate (Fleet Enema) 133 ml DAILY PRN [place] CONSTIPATION; Start 09/14/16 at 17:30 Famotidine (Pepcid) 20 mg Q12 PO Last administered on 09/24/16at 09:30; Admin Dose 20 MG; Start 09/14/16 at 21:00 Heparin Sodium (Porcine) 5000 unit 5,000 unit Q12 SC Last administered on 09/24 09:40; Admin Dose 5,000 UNIT; Start 09/14/16 at 21:00 Sodium Chloride (1/2 NS) 1,000 ml @ 75 mls/hr [id number] IV Last administered on 09/23/16at 21:35; Admin Dose 75 MLS/HR; Start 09/14/16 at 17:21 Hydralazine HCl (Apresoline) 10 mg Q6H PRN IV ELEVATED BLOOD PRESSURE Last administered on 09/23/16 04:27; Admin Dose 10 MG; Start 09/14/16 at 17:30 Nitroglycerin (Nitroglycerin (Sl Tab) 0.4 Mg) 1 tab Q5M PRN SL ANGINA; Start 09/14/16 at 17:30 Albuterol (Ventolin Hfa) 2 puff Q4H PRN INH WHEEZING AND SOB; Start 09/14/16 at 17:30 Atorvastatin Calcium (Lipitor) 5 mg DAILY@21 PO Last administered on at 21:36; Admin Dose 5 MG; Start 09/14/16 at 21:00 Salmeterol Xinafoate/ Fluticasone (Advair 250/50 Diskus) 1 inh BID INH Last administered on 09/24/16 09:37; Admin Dose 1 INH; Start 09/15/16 at 09:00 Albuterol (Ventolin Hfa) 2 puff Q4H PRN INH RESP DISTRESS/SOB/ETC......; Start 09/15/16 at 09:30 Amlodipine Besylate (Norvasc) 10 mg DAILY PO Last administered on 09/24/16 09 :30; Admin Dose 10 MG; Start 09/16/16 at 09:00 Isosorbide Mononitrate (Imdur) 30 mg DAILY PO Last administered on 09/24/16 09:31; Admin Dose 30 MG; Start 09/16/16 at 09:00 Metoprolol Succinate (Toprol Xl) 25 mg DAILY PO Last administered on 09:31; Admin Dose 25 MG; Start 09/16/16 at 09:00 Folic Acid (Folic Acid) 1 mg DAILY PO Last administered on 09/24/16 09:30; Admin Dose 1 MG; Start 09/16/16 at 09:00 Cyanocobalamin (Vitamin B12) 1,000 mcg DAILY PO Last administered on 09:30; Admin Dose 1,000 MCG; Start 09/16/16 at 09:00 Lorazepam (Ativan) 1 mg Q1H PRN IV CONTROL WITHDRAWAL SYMPTOMS Last administered on 09/19/16 00:35; Admin Dose 1 MG; Start 09/15/16 at 19:30 Nicotine (Nicoderm 21 Mg/ 24hr) 1 patch DAILY TRANSDERM Last administered on 09:32; Admin Dose 1 PATCH; Start 09/16/16 at 09:00 Chlordiazepoxide (Librium) 25 mg BID PO Last administered on 09/24/16 09:42; Admin Dose 25 MG; Start 09/19/16 at 10:00 Ciprofloxacin HCl 1 applic 1 applic BID RIGHT EYE Last administered on 09:37; Admin Dose 1 APPLIC; Start 09/22/16 at 09:00; Stop 09/26/16 at 08: 59 Multivitamins/ Thiamine HCl/ Folic Acid/Sodium Chloride (Mvi-12 Adult/ Vitamin B1/Folic Acid/NS) 1,015.2 ml @ 125 mls/ hr DAILY@09 IVPB Last administered on 09/24/16 09:32; Admin Dose 125 MLS/HR; Start 09/24/16 at 09:00 ASHIA MTZ MD Sep 24, 2016 09:59
[2016-09-24] MEDS: LORAZEPAM 2 MG INJ IV PRN (12:10)
--- NOTE | 2016-09-24 16:28 | CONS ---
Date/Time of Note Date/Time of Note DATE: 09/24/16 TIME: 16:24 Consult Date/Type/Reason Admit Date/Time Sep 14, 2016 at 15:19 Initial Consult Date 09/23/16 Type of Consultation: neurology Reason for Consultation encephalopathy Ordering Provider: ASHIA MZT MD Subjective remains encephalopathic, received EEG today was very agitated received minimal ativan Objective Vital Signs Date Time Temp Pulse Resp B/P Pulse Ox O2 Delivery O2 Flow Rate FiO2 09/24/16 14:00 97.8 87 16 145/71 95 Room Air 09/23/16 18:12 21 09/22/16 05:56 2.0 Intake and Output 09/23/16 09/23/16 09/24/16 15:00 23:00 07:00 Intake Total 2071.2 ml 795 ml Balance 2071.2 ml 795 ml patient is drowsy, minimally opens his eyes falls back asleep limited verbalization, dysarthric speech not answering questions appropriately or following commands CN: pupils constricted 1mm b/l no no nystagmus noted on primary gaze, no facial asymmetry Motor: withdraws to noxious in all four extremities Results/Medications Result Diagram: 09/24/16 0445 09/24/16 0445 Results 24 hrs Laboratory Tests Test 09/24/16 04:45 Alanine Aminotransferase (ALT/SGPT) 68 Albumin 3.2 L Albumin/Globulin Ratio 1.00 Alkaline Phosphatase 48 Anion Gap 14 Aspartate Amino Transf (AST/SGOT) 35 Basophils # 0.0 Basophils % 0.3 Blood Morphology Comment Blood Urea Nitrogen 5 L Calcium Level 9.0 Carbon Dioxide Level 25 Chloride Level 108 Creatinine 0.83 Direct Bilirubin 0.00 Eosinophils # 0.1 Eosinophils % 1.5 Globulin 3.20 Glucose Level 90 Hematocrit 36.8 L Hemoglobin 12.4 L Indirect Bilirubin 0.5 Lymphocytes # 1.1 Lymphocytes % 25.2 Mean Corpuscular Hemoglobin 34.0 H Mean Corpuscular Hemoglobin Concent 33.8 Mean Corpuscular Volume 100.5 Mean Platelet Volume 8.0 Monocytes # 0.9 Monocytes % 19.7 H Neutrophils # 2.4 Neutrophils % 53.3 Nucleated Red Blood Cells # 0.0 Nucleated Red Blood Cells % 0.0 Platelet Count 166 Potassium Level 3.4 L Red Blood Count 3.66 L Red Cell Distribution Width 15.1 H Sodium Level 144 Total Bilirubin 0.5 Total Protein 6.4 White Blood Count 4.5 L Medications Current Medications Ondansetron HCl (Zofran Inj) 4 mg Q6H PRN IV NAUSEA AND/OR VOMITING; Start at 17:30 Acetaminophen (Tylenol Tab) 650 mg Q6H PRN PO PAIN LEVEL 1-3 OR FEVER; Start 09/14/16 at 17:30 Acetaminophen/ Hydrocodone Bitart ([place] (5/325)) 1 tab Q6H PRN PO MODERATE PAIN LEVEL 4-6; Start 09/14/16 at 17:30 Morphine Sulfate (morphine) 2 mg Q4H PRN IV SEVERE PAIN LEVEL 7-10; Start at 17:30 Docusate Sodium (Colace) 100 mg Q12H PRN PO CONSTIPATION; Start 09/14/16 at 17 :30 Magnesium Hydroxide (Milk Of Mag) 30 ml DAILY PRN PO CONSTIPATION; Start 09/14 at 17:30 Sodium Biphosphate/ Sodium Phosphate (Fleet Enema) 133 ml DAILY PRN [place] CONSTIPATION; Start 09/14/16 at 17:30 Famotidine (Pepcid) 20 mg Q12 PO Last administered on 09/24/16at 09:30; Admin Dose 20 MG; Start 09/14/16 at 21:00 Heparin Sodium (Porcine) 5000 unit 5,000 unit Q12 SC Last administered on 09/24at 09:40; Admin Dose 5,000 UNIT; Start 09/14/16 at 21:00 Sodium Chloride (1/2 NS) 1,000 ml @ 75 mls/hr [id number] IV Last administered on 09/23/16at 21:35; Admin Dose 75 MLS/HR; Start 09/14/16 at 17:21 Hydralazine HCl (Apresoline) 10 mg Q6H PRN IV ELEVATED BLOOD PRESSURE Last administered on 09/23/16at 04:27; Admin Dose 10 MG; Start 09/14/16 at 17:30 Nitroglycerin (Nitroglycerin (Sl Tab) 0.4 Mg) 1 tab Q5M PRN SL ANGINA; Start 09/14/16 at 17:30 Albuterol (Ventolin Hfa) 2 puff Q4H PRN INH WHEEZING AND SOB; Start 09/14/16 at 17:30 Atorvastatin Calcium (Lipitor) 5 mg DAILY@21 PO Last administered on 21:36; Admin Dose 5 MG; Start 09/14/16 at 21:00 Salmeterol Xinafoate/ Fluticasone (Advair 250/50 Diskus) 1 inh BID INH Last administered on 09/24/16 09:37; Admin Dose 1 INH; Start 09/15/16 at 09:00 Albuterol (Ventolin Hfa) 2 puff Q4H PRN INH RESP DISTRESS/SOB/ETC......; Start 09/15/16 at 09:30 Amlodipine Besylate (Norvasc) 10 mg DAILY PO Last administered on 09/24/16 09 :30; Admin Dose 10 MG; Start 09/16/16 at 09:00 Isosorbide Mononitrate (Imdur) 30 mg DAILY PO Last administered on 09/24/16 09:31; Admin Dose 30 MG; Start 09/16/16 at 09:00 Metoprolol Succinate (Toprol Xl) 25 mg DAILY PO Last administered on 09:31; Admin Dose 25 MG; Start 09/16/16 at 09:00 Folic Acid (Folic Acid) 1 mg DAILY PO Last administered on 09/24/16 09:30; Admin Dose 1 MG; Start 09/16/16 at 09:00 Cyanocobalamin (Vitamin B12) 1,000 mcg DAILY PO Last administered on 09:30; Admin Dose 1,000 MCG; Start 09/16/16 at 09:00 Lorazepam (Ativan) 1 mg Q1H PRN IV CONTROL WITHDRAWAL SYMPTOMS Last administered on 09/24/16 12:10; Admin Dose 1 MG; Start 09/15/16 at 19:30 Nicotine (Nicoderm 21 Mg/ 24hr) 1 patch DAILY TRANSDERM Last administered on 09:32; Admin Dose 1 PATCH; Start 09/16/16 at 09:00 Chlordiazepoxide (Librium) 25 mg BID PO Last administered on 09/24/16 09:42; Admin Dose 25 MG; Start 09/19/16 at 10:00 Ciprofloxacin HCl 1 applic 1 applic BID RIGHT EYE Last administered on 09:37; Admin Dose 1 APPLIC; Start 09/22/16 at 09:00; Stop 09/26/16 at 08: 59 Multivitamins/ Thiamine HCl/ Folic Acid/Sodium Chloride (Mvi-12 Adult/ Vitamin B1/Folic Acid/NS) 1,015.2 ml @ 125 mls/ hr DAILY@09 IVPB Last administered on 09/24/16at 09:32; Admin Dose 125 MLS/HR; Start 09/24/16 at 09:00 Assessment/Plan Chief Complaint/Hosp Course 70 y/o M with hx of CAD, essential hypertension, essential tremors, alcohol abuse admitted with syncopal event and hypoglycemia undergoing treatment for alcohol withdrawal. -Recommend MRI Brain without contrast -EEG follow up done today -consider treatment with higher dose of Thiamine 500 mg IV TID for 3 days -will continue to follow Problems: EDUARDO ERNST MD Sep 24, 2016 16:28
[2016-09-24] MEDS: SOD CHLORIDE 0.45% 1,000 ML IV SCH (18:35)
[2016-09-24] MEDS: ATORVASTATIN 10 MG TAB PO SCH (22:03)
[2016-09-25] VITALS (12 sets, daily range): BP systolic 104–161; BP diastolic 60–86; PULSE 77–90; RESP 16–20
[2016-09-25] MEDS: SOD CHLORIDE 0.45% 1,000 ML IV SCH ×2 (05:26→20:04)
--- NOTE | 2016-09-25 08:12 | RADRPT ---
PROCEDURE: CT Brain without contrast. CLINICAL INDICATION: Trauma, fall TECHNIQUE: A CT of the brain was performed on multidetector high-resolution CT scanner utilizing a xial sections from the skull base through the vertex without contrast. DOSE: CTDI = 44 mGy and the DLP = 810 mGy-cm. COMPARISON: Head CT 09/14/2016 FINDINGS: No acute intracranial hemorrhage, significant mass effect or midline shift. Patchy hypoattenuation o f the cerebral white matter is most consistent with mildchronic microvascular ischemic changes. The ventricles are stable size with mild volume loss. Partially opacified mastoids. IMPRESSION: No significant interval change. No acute intracranial hemorrhage or significant mass effect. Mild microvascular disease and intracranial atherosclerosis. Mild volume loss. RPTAT: AA .Macario Muir MD, MD Date Time Electronically viewed and signed by .Macario Muir MD, MD on 09/25/2016 08:11 .T/
--- NOTE | 2016-09-25 08:14 | RADRPT ---
PROCEDURE: MR Brain without contrast. CLINICAL INDICATION: Syncope, neurologic deficit TECHNIQUE: An MRI of the brain was performed on a high-resolution MR scanner utilizing the followi ng sequences: Sagittal and axial T1 weighted, axial T2 weighted, axial FLAIR, coronal GRE, and axial diffusion weighted with ADC mapping. Images were reviewed high-resolution PACS workstation. No con trast was administered. COMPARISON: Brain CT 09/14/2016 FINDINGS: No acute parenchymal hemorrhage, mass effect, or midline shift. No evidence of recent infarct. Scatt ered subcortical, deep, and periventricular white matter T2-weighted/FLAIR hyperintensities are cons istent with mild microvascular ischemic disease. No suspicious parenchymal hypointense signal abnormalities are seen on the GRE images to suggest the presence of blood degradation products. The ventricles are stable size with mild volume loss. Normal flow voids are visible in the proximal intracranial arteries suggesting their patency. Partially opacified bilateral mastoids. IMPRESSION: No acute intracranial abnormality identified. No evidence of recent infarct. Mild chronic microvascular disease. RPTAT: AA .Macario Muir MD, Date Time Electronically viewed and signed by .Macario Muir MD, on 09/25/2016 08:14 .T/
[2016-09-25] MEDS: SOD CHLORIDE 0.9% IVPB SCH (08:26)
[2016-09-25] MEDS: MULTIVITAMINS IVPB SCH (08:26)
[2016-09-25] MEDS: FOLIC ACID IVPB SCH (08:26)
[2016-09-25] MEDS: THIAMINE IVPB SCH (08:26)
[2016-09-25] MEDS: NICOTINE (21 MG/24 HR) PATCH TRANSDERM SCH (08:27)
[2016-09-25] MEDS: CYANOCOBALAMIN 500 MCG TAB PO SCH (08:28)
[2016-09-25] MEDS: CHLORDIAZEPOXIDE 25 MG CAP PO SCH ×2 (08:28→22:04)
[2016-09-25] MEDS: FAMOTIDINE 20 MG TAB PO SCH ×2 (08:28→22:04)
[2016-09-25] MEDS: FOLIC ACID 1 MG TAB PO SCH (08:28)
[2016-09-25] MEDS: AMLODIPINE 10 MG TAB PO SCH (08:29)
[2016-09-25] MEDS: METOPROLOL (XL) 25 MG TAB PO SCH (08:29)
[2016-09-25] MEDS: ISOSORBIDE MONONITRATE(SR)30 MG TAB PO SCH (08:30)
[2016-09-25] MEDS: SALMETEROL/FLUTICASONE 250/50 INHA INH SCH ×2 (08:31→22:04)
[2016-09-25] MEDS: CIPROFLOXACIN 0.3% 3.5 GM OPH OINT RIGHT EYE SCH ×2 (08:31→22:04)
[2016-09-25] MEDS: HEPARIN 5,000 UNIT/0.5 ML SYG SC SCH ×2 (08:37→22:11)
--- NOTE | 2016-09-25 09:26 | PN ---
Date/Time of Note Date/Time of Note DATE: 09/25/16 TIME: 09:23 Assessment/Plan VTE Prophylaxis VTE Prophylaxis Intervention: SCD's Lines/Catheters IV [facility] (from [facility]): Peripheral IV Urinary Cath still in place: No Assessment/Plan Assessment/Plan 70-year-old male coming in with a syncopal event with low blood sugars, EtOH intoxication, now in withdrawal. 1. Syncope - sec to ETOH intoxication - Wernicke's encephalopathy; ethanol levels elevated and pt showing signs of alcohol withdrawal. Slowly improving from intoxication, somewhat lethargic the last 1-2 days, thiamine 500 mg to be given 3 days- MRI negative, CT brain negative - psych eval? - banana bag, librium to 25 mg BID, ativan prn - ammonia level < 0 - neuro checks every 4 hours. - f/u PT and OT consults as well. - neuro consulted for further evaluation 2. Chronic obstructive pulmonary disease. He is on DuoNebs p.r.n. as well. Monitor for any signs of any shortness of breath. 3. Coronary artery disease. Blood pressure was high when he came in. Continue hydralazine p.r.n. EF 50% stage I diastolic dysfunction 4. Essential hypertension. restart home medications. 5. Essential tremors. Continue to monitor for now. 6. Hypoglycemia - A1c = 5.1 ETOH induced - improved 7. Right eye conjunctivitis - cipro oph gtt - f/u endo consult rec's 8. Gastroesophageal reflux disease - H2 dacia. 9. Deep venous thrombosis prophylaxis. Heparin subQ dispo - f/u recs. as per clinical course. . payroll services analyst consult. Psych eval this progress note took greater than 20 minutes to complete Subjective 24 Hr Interval Summary Free Text/Dictation Patient is doing ok. Had a fall last night as he got out of his restraints. Otherwise spoke to the nurse about the care plan. 15 minutes spent. Exam/Review of Systems Vital Signs Vitals Vital Signs Date Time Temp Pulse Resp B/P Pulse Ox O2 Delivery O2 Flow Rate FiO2 09/25/16 06:00 98.1 86 18 155/86 96 Room Air 09/23/16 18:12 21 09/22/16 05:56 2.0 Intake and Output 09/24/16 09/24/16 09/25/16 15:00 23:00 07:00 Intake Total 325 ml 1135.2 ml 1025 ml Output Total 400 ml Balance 325 ml 1135.2 ml 625 ml Exam Gen Geovanna: NAD, alert to self, time but place HEENT: NC/AT, PERRLA, EOMI, no pharyngeal erythema, no tonsillar exudates, no lymphadenopathy, no JVD, no carotid bruits, right eye purulent discharge - improving NECK: supple, no thyromegaly THORAX: symmetrical, no obvious deformities CV: S1S2, RRR, no M/G/R Lungs: CTAB no W/C/R/R Abd: soft, NT/ND, +BS, no rebound, no guarding, neg HSM EXT: no edema, no ecchymosis, no clubbing, FROM Neuro: CN II-XII grossly intact, mild tremors Psych: confused, difficulty with articulation - mild improvement Skin: C/D/I Results Result Diagram: 09/24/1644409/24/16444 Medications Medications Current Medications Ondansetron HCl (Zofran Inj) 4 mg Q6H PRN IV NAUSEA AND/OR VOMITING; Start at 17:30 Acetaminophen (Tylenol Tab) 650 mg Q6H PRN PO PAIN LEVEL 1-3 OR FEVER; Start 09/14/16 at 17:30 Acetaminophen/ Hydrocodone Bitart ([place] (5/325)) 1 tab Q6H PRN PO MODERATE PAIN LEVEL 4-6; Start 09/14/16 at 17:30 Morphine Sulfate (morphine) 2 mg Q4H PRN IV SEVERE PAIN LEVEL 7-10; Start at 17:30 Docusate Sodium (Colace) 100 mg Q12H PRN PO CONSTIPATION; Start 09/14/16 at 17 :30 Magnesium Hydroxide (Milk Of Mag) 30 ml DAILY PRN PO CONSTIPATION; Start 09/14 at 17:30 Sodium Biphosphate/ Sodium Phosphate (Fleet Enema) 133 ml DAILY PRN [place] CONSTIPATION; Start 09/14/16 at 17:30 Famotidine (Pepcid) 20 mg Q12 PO Last administered on 09/25/16at 08:28; Admin Dose 20 MG; Start 09/14/16 at 21:00 Heparin Sodium (Porcine) 5000 unit 5,000 unit Q12 SC Last administered on 09/25at 08:37; Admin Dose 5,000 UNIT; Start 09/14/16 at 21:00 Sodium Chloride (1/2 NS) 1,000 ml @ 75 mls/hr [id number] IV Last administered on 09/24/16at 18:35; Admin Dose 75 MLS/HR; Start 09/14/16 at 17:21 Hydralazine HCl (Apresoline) 10 mg Q6H PRN IV ELEVATED BLOOD PRESSURE Last administered on 09/23/16 04:27; Admin Dose 10 MG; Start 09/14/16 at 17:30 Nitroglycerin (Nitroglycerin (Sl Tab) 0.4 Mg) 1 tab Q5M PRN SL ANGINA; Start 09/14/16 at 17:30 Albuterol (Ventolin Hfa) 2 puff Q4H PRN INH WHEEZING AND SOB; Start 09/14/16 at 17:30 Atorvastatin Calcium (Lipitor) 5 mg DAILY@21 PO Last administered on at 22:03; Admin Dose 5 MG; Start 09/14/16 at 21:00 Salmeterol Xinafoate/ Fluticasone (Advair 250/50 Diskus) 1 inh BID INH Last administered on 09/25/16at 08:31; Admin Dose 1 INH; Start 09/15/16 at 09:00 Albuterol (Ventolin Hfa) 2 puff Q4H PRN INH RESP DISTRESS/SOB/ETC......; Start 09/15/16 at 09:30 Amlodipine Besylate (Norvasc) 10 mg DAILY PO Last administered on 09/25/16 08 :29; Admin Dose 10 MG; Start 09/16/16 at 09:00 Isosorbide Mononitrate (Imdur) 30 mg DAILY PO Last administered on 09/25/16 08:30; Admin Dose 30 MG; Start 09/16/16 at 09:00 Metoprolol Succinate (Toprol Xl) 25 mg DAILY PO Last administered on 08:29; Admin Dose 25 MG; Start 09/16/16 at 09:00 Folic Acid (Folic Acid) 1 mg DAILY PO Last administered on 09/25/16 08:28; Admin Dose 1 MG; Start 09/16/16 at 09:00 Cyanocobalamin (Vitamin B12) 1,000 mcg DAILY PO Last administered on 08:28; Admin Dose 1,000 MCG; Start 09/16/16 at 09:00 Lorazepam (Ativan) 1 mg Q1H PRN IV CONTROL WITHDRAWAL SYMPTOMS Last administered on 09/24/16 12:10; Admin Dose 1 MG; Start 09/15/16 at 19:30 Nicotine (Nicoderm 21 Mg/ 24hr) 1 patch DAILY TRANSDERM Last administered on 08:27; Admin Dose 1 PATCH; Start 09/16/16 at 09:00 Chlordiazepoxide (Librium) 25 mg BID PO Last administered on 09/25/16 08:28; Admin Dose 25 MG; Start 09/19/16 at 10:00 Ciprofloxacin HCl 1 applic 1 applic BID RIGHT EYE Last administered on 08:31; Admin Dose 1 APPLIC; Start 09/22/16 at 09:00; Stop 09/26/16 at 08: 59 Multivitamins/ Thiamine HCl/ Folic Acid/Sodium Chloride (Mvi-12 Adult/ Vitamin B1/Folic Acid/NS) 1,015.2 ml @ 125 mls/ hr DAILY@09 IVPB Last administered on 09/25/16 08:26; Admin Dose 125 MLS/HR; Start 09/24/16 at 09:00 ASHIA MTZ MD Sep 25, 2016 09:26
[2016-09-25] MEDS: MAGNESIUM HYDROXIDE 30ML CUP PO PRN (10:50)
[2016-09-25] MEDS ORDERED: NALOXONE (0.4 MG/ML) INJ ONE (12:28)
[2016-09-25] MEDS ORDERED: NALOXONE (0.4 MG/ML) INJ IV STA ×2 (12:28→12:40)
[2016-09-25 13:12] LABS: AADO2 Arterial 104.1 mmHg (7.0-24.0); Allen Test ACCEPTAB; Arterial Base Excess -4.1 mmol/L (-3.0-3); Arterial COHb 0.3 % (0.0-3.0); Arterial Fraction of Oxyhgb 95.6 % (93.0-99.0); Arterial HCO3 20.2 mmol/L (22.0-26.0); Arterial MetHb 0.3 % (0.0-1.5); Arterial Total Hemglobin 12.6 g/dl (12.0-18.0); MODE NASAL CANNULA
--- NOTE | 2016-09-25 18:16 | CONS ---
Date/Time of Note Date/Time of Note DATE: 09/25/16 TIME: 18:12 Assessment/Plan Assessment/Plan Additional Assessment/Plan 70 y/o M with hx of CAD, essential hypertension, essential tremors, alcohol abuse admitted with syncopal event and hypoglycemia undergoing treatment for alcohol withdrawal. MRI of brain showed microvascular disease, nothing acute. 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 PLAN: -consider treatment with higher dose of Thiamine 500 mg IV TID for 3 days -will continue to follow Consultation Date/Type/Reason Admit Date/Time Sep 14, 2016 at 15:19 Initial Consult Date 09/23/16 Type of Consultation: neurology Reason for Consultation Syncopal episode Referring Provider: ASHIA MTZ MD 24 HR Interval Summary Free Text/Dictation Clinically same. confused. fell out of bed yesterday. No witness to any seizure activity. EEG showed mild encephalopathy, no seizure activity. MRI of brain showed nothing acute. Constitutional: no complaints Exam/Review of Systems Vital Signs Vitals Vital Signs Date Time Temp Pulse Resp B/P Pulse Ox O2 Delivery O2 Flow Rate FiO2 09/25/16 14:00 97.6 78 20 104/60 100 Mask 4.0 09/23/16 18:12 21 Intake and Output 09/24/16 09/24/16 09/25/16 14:59 22:59 06:59 Intake Total 325 ml 1135.2 ml 1025 ml Output Total 400 ml Balance 325 ml 1135.2 ml 625 ml Exam Constitutional: alert, well developed Psych: confusion, nl mood/affect, no complaints Head: atraumatic, normocephalic Eyes: EOMI, nl conjunctiva, nl lids, nl sclera ENMT: mucosa pink and moist, nl external ears & nose, nl lips & teeth, nl nasal mucosa & septum Neck: non-tender, supple Respiratory: clear to auscultation, normal air movement Cardiovascular: nl pulses, regular rate and rhythm Gastrointestinal: nl liver, spleen, non-tender, soft Musculoskeletal: nl extremities to inspection Extremities: normal pulses Neurological: LIFE INSURANCE SALES AGENT II-XII intact, confused Skin: nl turgor, rash or lesions Lymph: nl lymph nodes Results Result Diagram: 09/24/16 0445 09/24/16 0445 Results 24 hrs Laboratory Tests Test 09/25/16 12:21 09/25/16 12:40 Bedside Glucose 107 Arterial Blood HCO3 20.2 L Arterial Blood Base Excess -4.1 L Arterial Blood Oxygen Saturation 96.2 Zander Test ACCEPTAB Arterial Blood Gas Puncture Site Right Radial Arterial Blood Carboxyhemoglobin 0.3 Arterial Blood Date Drawn 09/25/2016 12:50:49 PM Arterial Blood Methemoglobin 0.3 Arterial Blood pCO2 (Temp correct) 34.5 L Arterial Blood pH (Temp corrected) 7.385 Arterial Blood pO2 (Temp corrected) 90.9 H Blood Gas A-a O2 Differential 104.1 H Blood Gas Modality NASAL CANNULA Blood Gas Notified Time 09/25/2016 1:11:59 PM Blood Gas Notified Whom JLD Blood Gas Specimen Source Blood arterial Blood Gas Temperature 37.0 FiO2 33.0 Oxyhemoglobin Percent 95.6 Total Hemoglobin 12.6 Medications Medications Current Medications Ondansetron HCl (Zofran Inj) 4 mg Q6H PRN IV NAUSEA AND/OR VOMITING; Start at 17:30 Acetaminophen (Tylenol Tab) 650 mg Q6H PRN PO PAIN LEVEL 1-3 OR FEVER; Start 09/14/16 at 17:30 Morphine Sulfate (morphine) 2 mg Q4H PRN IV SEVERE PAIN LEVEL 7-10; Start at 17:30 Docusate Sodium (Colace) 100 mg Q12H PRN PO CONSTIPATION; Start 09/14/16 at 17 :30 Magnesium Hydroxide (Milk Of Mag) 30 ml DAILY PRN PO CONSTIPATION Last administered on 09/25/16at 10:50; Admin Dose 30 ML; Start 09/14/16 at 17:30 Sodium Biphosphate/ Sodium Phosphate (Fleet Enema) 133 ml DAILY PRN [place] CONSTIPATION; Start 09/14/16 at 17:30 Famotidine (Pepcid) 20 mg Q12 PO Last administered on 09/25/16at 08:28; Admin Dose 20 MG; Start 09/14/16 at 21:00 Heparin Sodium (Porcine) 5000 unit 5,000 unit Q12 SC Last administered on 09/25at 08:37; Admin Dose 5,000 UNIT; Start 09/14/16 at 21:00 Sodium Chloride (1/2 NS) 1,000 ml @ 75 mls/hr [id number] IV Last administered on 09/24/16at 18:35; Admin Dose 75 MLS/HR; Start 09/14/16 at 17:21 Hydralazine HCl (Apresoline) 10 mg Q6H PRN IV ELEVATED BLOOD PRESSURE Last administered on 09/23/16 04:27; Admin Dose 10 MG; Start 09/14/16 at 17:30 Nitroglycerin (Nitroglycerin (Sl Tab) 0.4 Mg) 1 tab Q5M PRN SL ANGINA; Start 09/14/16 at 17:30 Albuterol (Ventolin Hfa) 2 puff Q4H PRN INH WHEEZING AND SOB; Start 09/14/16 at 17:30 Atorvastatin Calcium (Lipitor) 5 mg DAILY@21 PO Last administered on 22:03; Admin Dose 5 MG; Start 09/14/16 at 21:00 Salmeterol Xinafoate/ Fluticasone (Advair 250/50 Diskus) 1 inh BID INH Last administered on 09/25/16 08:31; Admin Dose 1 INH; Start 09/15/16 at 09:00 Albuterol (Ventolin Hfa) 2 puff Q4H PRN INH RESP DISTRESS/SOB/ETC......; Start 09/15/16 at 09:30 Amlodipine Besylate (Norvasc) 10 mg DAILY PO Last administered on 09/25/16 08 :29; Admin Dose 10 MG; Start 09/16/16 at 09:00 Isosorbide Mononitrate (Imdur) 30 mg DAILY PO Last administered on 09/25/16 08:30; Admin Dose 30 MG; Start 09/16/16 at 09:00 Metoprolol Succinate (Toprol Xl) 25 mg DAILY PO Last administered on 08:29; Admin Dose 25 MG; Start 09/16/16 at 09:00 Folic Acid (Folic Acid) 1 mg DAILY PO Last administered on 09/25/16 08:28; Admin Dose 1 MG; Start 09/16/16 at 09:00 Cyanocobalamin (Vitamin B12) 1,000 mcg DAILY PO Last administered on 08:28; Admin Dose 1,000 MCG; Start 09/16/16 at 09:00 Lorazepam (Ativan) 1 mg Q1H PRN IV CONTROL WITHDRAWAL SYMPTOMS Last administered on 09/24/16 12:10; Admin Dose 1 MG; Start 09/15/16 at 19:30 Nicotine (Nicoderm 21 Mg/ 24hr) 1 patch DAILY TRANSDERM Last administered on at 08:27; Admin Dose 1 PATCH; Start 09/16/16 at 09:00 Chlordiazepoxide (Librium) 25 mg BID PO Last administered on 09/25/16at 08:28; Admin Dose 25 MG; Start 09/19/16 at 10:00 Ciprofloxacin HCl 1 applic 1 applic BID RIGHT EYE Last administered on at 08:31; Admin Dose 1 APPLIC; Start 09/22/16 at 09:00; Stop 09/26/16 at 08: 59 Multivitamins/ Thiamine HCl/ Folic Acid/Sodium Chloride (Mvi-12 Adult/ Vitamin B1/Folic Acid/NS) 1,015.2 ml @ 125 mls/ hr DAILY@09 IVPB Last administered on 09/25/16at 08:26; Admin Dose 125 MLS/HR; Start 09/24/16 at 09:00 Procedures Procedures 09/25/16 MRI of brain IMPRESSION: No acute intracranial abnormality identified. No evidence of recent infarct. Mild chronic microvascular disease. RPTAT: AA .Macario Muir MD, MD Date Time Electronically viewed and signed by .Macario Muir MD, MD on 09/25/2016 08:14 LUCY RUSH MD Sep 25, 2016 18:16
[2016-09-25] MEDS: ATORVASTATIN 10 MG TAB PO SCH (22:04)
[2016-09-26] VITALS (12 sets, daily range): BP systolic 101–159; BP diastolic 6–88; PULSE 74–92; RESP 16–20
[2016-09-26] MEDS: SOD CHLORIDE 0.9% IVPB SCH (08:34)
[2016-09-26] MEDS: NICOTINE (21 MG/24 HR) PATCH TRANSDERM SCH (08:34)
[2016-09-26] MEDS: CHLORDIAZEPOXIDE 25 MG CAP PO SCH ×2 (08:34→20:25)
[2016-09-26] MEDS: FOLIC ACID IVPB SCH (08:34)
[2016-09-26] MEDS: ISOSORBIDE MONONITRATE(SR)30 MG TAB PO SCH (08:34)
[2016-09-26] MEDS: MULTIVITAMINS IVPB SCH (08:34)
[2016-09-26] MEDS: THIAMINE IVPB SCH (08:34)
[2016-09-26] MEDS: METOPROLOL (XL) 25 MG TAB PO SCH (08:35)
[2016-09-26] MEDS: FOLIC ACID 1 MG TAB PO SCH (08:35)
[2016-09-26] MEDS: AMLODIPINE 10 MG TAB PO SCH (08:35)
[2016-09-26] MEDS: CYANOCOBALAMIN 500 MCG TAB PO SCH (08:35)
[2016-09-26] MEDS: FAMOTIDINE 20 MG TAB PO SCH ×2 (08:35→20:24)
[2016-09-26] MEDS: HEPARIN 5,000 UNIT/0.5 ML SYG SC SCH ×2 (08:45→20:27)
--- NOTE | 2016-09-26 09:01 | PN ---
Date/Time of Note Date/Time of Note DATE: 09/26/16 TIME: 08:57 Assessment/Plan VTE Prophylaxis VTE Prophylaxis Intervention: heparin Lines/Catheters IV Catheter Type (from [facility]): Peripheral IV Urinary Cath still in place: No Assessment/Plan Assessment/Plan 70-year-old male coming in with a syncopal event with low blood sugars, EtOH intoxication, now in withdrawal. 1. Syncope - sec to ETOH intoxication - Wernicke's encephalopathy; ethanol levels elevated and pt showing signs of alcohol withdrawal. Slowly improving from intoxication, somewhat lethargic the last 1-2 days, thiamine 500 mg to be given 3 days- MRI negative, CT brain negative - sequelae of encephalopathy - appreciate neuro recs - banana bag, librium to 25 mg BID, ativan prn - ammonia level < 0 - neuro checks every 4 hours. - f/u PT and OT consults as well. 2. Chronic obstructive pulmonary disease. He is on DuoNebs p.r.n. as well. Monitor for any signs of any shortness of breath. 3. Coronary artery disease. Blood pressure was high when he came in. Continue hydralazine p.r.n. EF 50% stage I diastolic dysfunction 4. Essential hypertension. restart home medications. 5. Essential tremors. Continue to monitor for now. 6. Hypoglycemia - A1c = 5.1 ETOH induced - improved 7. Right eye conjunctivitis - cipro oph gtt - f/u endo consult rec's 8. Gastroesophageal reflux disease - H2 dacia. 9. Deep venous thrombosis prophylaxis. Heparin subQ dispo - f/u recs. as per clinical course. . banking services clerk consult. avoidance of opioids at this time this progress note took greater than 20 minutes to complete Subjective 24 Hr Interval Summary Free Text/Dictation Patient had a hypotensive/hypoxic episode yesterday after receiving norco. Narcan x 2 was given. Opioids are no longer to be given. Spoke to the nurse about the care plan. 15 minutes spent. Exam/Review of Systems Vital Signs Vitals Vital Signs Date Time Temp Pulse Resp B/P Pulse Ox O2 Delivery O2 Flow Rate FiO2 09/26/16 06:00 98.0 86 18 159/86 97 Room Air 09/25/16 14:00 4.0 09/23/16 18:12 21 Intake and Output 09/25/16 09/25/16 09/26/16 15:00 23:00 07:00 Intake Total 1190.2 ml 675 ml Output Total 200 ml Balance 990.2 ml 675 ml Exam Gen Geovanna: NAD, alert to self, time but place thinks its [place] HEENT: NC/AT, PERRLA, EOMI, no pharyngeal erythema, no tonsillar exudates, no lymphadenopathy, no JVD, no carotid bruits, right eye purulent discharge - improving NECK: supple, no thyromegaly THORAX: symmetrical, no obvious deformities CV: S1S2, RRR, no M/G/R Lungs: CTAB no W/C/R/R Abd: soft, NT/ND, +BS, no rebound, no guarding, neg HSM EXT: no edema, no ecchymosis, no clubbing, FROM Neuro: CN II-XII grossly intact, mild tremors Psych: confused, difficulty with articulation - mild improvement Skin: C/D/I Results Result Diagram: 09/24/165 09/24/16 0445 Results 24 hrs Laboratory Tests Test 09/25/16 12:21 09/25/16 12:40 Bedside Glucose 107 Arterial Blood HCO3 20.2 L Arterial Blood Base Excess -4.1 L Arterial Blood Oxygen Saturation 96.2 Zander Test ACCEPTAB Arterial Blood Gas Puncture Site Right Radial Arterial Blood Carboxyhemoglobin 0.3 Arterial Blood Date Drawn 09/25/2016 12:50:49 PM Arterial Blood Methemoglobin 0.3 Arterial Blood pCO2 (Temp correct) 34.5 L Arterial Blood pH (Temp corrected) 7.385 Arterial Blood pO2 (Temp corrected) 90.9 H Blood Gas A-a O2 Differential 104.1 H Blood Gas Modality NASAL CANNULA Blood Gas Notified Time 09/25/2016 1:11:59 PM Blood Gas Notified Whom JLD Blood Gas Specimen Source Blood arterial Blood Gas Temperature 37.0 FiO2 33.0 Oxyhemoglobin Percent 95.6 Total Hemoglobin 12.6 Medications Medications Current Medications Ondansetron HCl (Zofran Inj) 4 mg Q6H PRN IV NAUSEA AND/OR VOMITING; Start at 17:30 Acetaminophen (Tylenol Tab) 650 mg Q6H PRN PO PAIN LEVEL 1-3 OR FEVER; Start 09/14/16 at 17:30 Morphine Sulfate (morphine) 2 mg Q4H PRN IV SEVERE PAIN LEVEL 7-10; Start at 17:30 Docusate Sodium (Colace) 100 mg Q12H PRN PO CONSTIPATION; Start 09/14/16 at 17 :30 Magnesium Hydroxide (Milk Of Mag) 30 ml DAILY PRN PO CONSTIPATION Last administered on 09/25/16at 10:50; Admin Dose 30 ML; Start 09/14/16 at 17:30 Sodium Biphosphate/ Sodium Phosphate (Fleet Enema) 133 ml DAILY PRN [place] CONSTIPATION; Start 09/14/16 at 17:30 Famotidine (Pepcid) 20 mg Q12 PO Last administered on 09/26/16 08:35; Admin Dose 20 MG; Start 09/14/16 at 21:00 Heparin Sodium (Porcine) 5000 unit 5,000 unit Q12 SC Last administered on 09/26 08:45; Admin Dose 5,000 UNIT; Start 09/14/16 at 21:00 Sodium Chloride (1/2 NS) 1,000 ml @ 75 mls/hr [id number] IV Last administered on 09/25/16at 20:04; Admin Dose 75 MLS/HR; Start 09/14/16 at 17:21 Hydralazine HCl (Apresoline) 10 mg Q6H PRN IV ELEVATED BLOOD PRESSURE Last administered on 09/23/16at 04:27; Admin Dose 10 MG; Start 09/14/16 at 17:30 Nitroglycerin (Nitroglycerin (Sl Tab) 0.4 Mg) 1 tab Q5M PRN SL ANGINA; Start 09/14/16 at 17:30 Albuterol (Ventolin Hfa) 2 puff Q4H PRN INH WHEEZING AND SOB; Start 09/14/16 at 17:30 Atorvastatin Calcium (Lipitor) 5 mg DAILY@21 PO Last administered on at 22:04; Admin Dose 5 MG; Start 09/14/16 at 21:00 Salmeterol Xinafoate/ Fluticasone (Advair 250/50 Diskus) 1 inh BID INH Last administered on 09/25/16at 22:04; Admin Dose 1 INH; Start 09/15/16 at 09:00 Albuterol (Ventolin Hfa) 2 puff Q4H PRN INH RESP DISTRESS/SOB/ETC......; Start 09/15/16 at 09:30 Amlodipine Besylate (Norvasc) 10 mg DAILY PO Last administered on 09/26/16 08 :35; Admin Dose 10 MG; Start 09/16/16 at 09:00 Isosorbide Mononitrate (Imdur) 30 mg DAILY PO Last administered on 09/26/16 08:34; Admin Dose 30 MG; Start 09/16/16 at 09:00 Metoprolol Succinate (Toprol Xl) 25 mg DAILY PO Last administered on 08:35; Admin Dose 25 MG; Start 09/16/16 at 09:00 Folic Acid (Folic Acid) 1 mg DAILY PO Last administered on 09/26/16 08:35; Admin Dose 1 MG; Start 09/16/16 at 09:00 Cyanocobalamin (Vitamin B12) 1,000 mcg DAILY PO Last administered on 08:35; Admin Dose 1,000 MCG; Start 09/16/16 at 09:00 Lorazepam (Ativan) 1 mg Q1H PRN IV CONTROL WITHDRAWAL SYMPTOMS Last administered on 09/24/16 12:10; Admin Dose 1 MG; Start 09/15/16 at 19:30 Nicotine (Nicoderm 21 Mg/ 24hr) 1 patch DAILY TRANSDERM Last administered on 08:34; Admin Dose 1 PATCH; Start 09/16/16 at 09:00 Chlordiazepoxide (Librium) 25 mg BID PO Last administered on 09/26/16 08:34; Admin Dose 25 MG; Start 09/19/16 at 10:00 Ciprofloxacin HCl 1 applic 1 applic BID RIGHT EYE Last administered on 22:04; Admin Dose 1 APPLIC; Start 09/22/16 at 09:00; Stop 09/26/16 at 08: 59 Multivitamins/ Thiamine HCl/ Folic Acid/Sodium Chloride (Mvi-12 Adult/ Vitamin B1/Folic Acid/NS) 1,015.2 ml @ 125 mls/ hr DAILY@09 IVPB Last administered on 09/26/16 08:34; Admin Dose 125 MLS/HR; Start 09/24/16 at 09:00 ASHIA MTZ MD Sep 26, 2016 09:00
[2016-09-26 10:40] LABS: BASOPHILS % 0.5 % (0.0-2.0); EOSINOPHILS # 0.1 10^3/ul (0.0-0.5); EOSINOPHILS % 2.3 % (0.0-7.0); HEMATOCRIT 36.9 % (42.0-52.0); HEMOGLOBIN 12.3 g/dl (14.0-18.0); LYMPHOCYTES # 1.1 10^3/ul (0.8-2.9); LYMPHOCYTES % 21.9 % (15.0-51.0); MEAN CORPUSCULAR HEMOGLOBIN 33.6 pg (29.0-33.0); MEAN CORPUSCULAR HGB CONC 33.5 g/dl (32.0-37.0); MEAN CORPUSCULAR VOLUME 100.4 fl (82.0-101.0); MEAN PLATELET VOLUME 8.4 fl (7.4-10.4); MONOCYTE # 0.7 10^3/ul (0.3-0.9); MONOCYTES % 14.4 % (0.0-11.0); NEUTROPHIL # 3.1 10^3/ul (1.6-7.5); NEUTROPHILS % 60.9 % (39.0-77.0); PLATELET COUNT 206 10^3/UL (140-440); RED BLOOD COUNT 3.67 10^6/ul (4.70-6.10); RED CELL DISTRIBUTION WIDTH 15.4 % (11.5-14.5)
[2016-09-26 10:41] LABS: POTASSIUM 3.4 mmol/L (3.5-5.1)
[2016-09-26 10:43] LABS: CONDITION 1; CREATININE 0.81 mg/dl (0.61-1.24); LH ANALYZER COMMENTS 1
[2016-09-26 10:44] LABS: CALCIUM 8.9 mg/dl (8.4-10.2)
--- NOTE | 2016-09-26 14:44 | CONS ---
Date/Time of Note Date/Time of Note DATE: 09/26/16 TIME: 14:41 Assessment/Plan Assessment/Plan Additional Assessment/Plan 70 y/o M with hx of CAD, essential hypertension, essential tremors, alcohol abuse admitted with syncopal event and hypoglycemia undergoing treatment for alcohol withdrawal. MRI of brain showed microvascular disease, nothing acute. 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 PLAN: 1 Continue Thiamine 2 will follow Consultation Date/Type/Reason Admit Date/Time Sep 14, 2016 at 15:19 Initial Consult Date 09/23/16 Type of Consultation: neurology Referring Provider: ASHIA MTZ MD 24 HR Interval Summary Free Text/Dictation No event in the last 24 hours, stilkl confused, restrained. No seiure activity. Exam/Review of Systems Vital Signs Vitals Vital Signs Date Time Temp Pulse Resp B/P Pulse Ox O2 Delivery O2 Flow Rate FiO2 09/26/16 12:00 97.8 74 18 115/60 98 Room Air 09/25/16 14:00 4.0 09/23/16 18:12 21 Intake and Output 09/25/16 09/25/16 09/26/16 15:00 23:00 07:00 Intake Total 1190.2 ml 675 ml Output Total 200 ml Balance 990.2 ml 675 ml Exam Constitutional: alert Psych: confusion Head: atraumatic, normocephalic Eyes: EOMI, nl conjunctiva, nl lids, nl sclera ENMT: mucosa pink and moist, nl external ears & nose, nl lips & teeth, nl nasal mucosa & septum Neck: non-tender, supple Respiratory: clear to auscultation, normal air movement Cardiovascular: nl pulses, regular rate and rhythm Gastrointestinal: non-tender, soft Musculoskeletal: nl extremities to inspection Extremities: normal pulses Neurological: JIVE DEVELOPER II-XII intact, confused, other (followes all commands, no focal weakness) Skin: nl turgor Lymph: nl lymph nodes Results Result Diagram: 09/26/16 0950 09/26/16 0950 Results 24 hrs Laboratory Tests Test 09/26/16 09:50 Anion Gap 15 Basophils # 0.0 Basophils % 0.5 Blood Morphology Comment Blood Urea Nitrogen 5 L Calcium Level 8.9 Carbon Dioxide Level 25 Chloride Level 105 Creatinine 0.81 Eosinophils # 0.1 Eosinophils % 2.3 Glucose Level 107 Hematocrit 36.9 L Hemoglobin 12.3 L Lymphocytes # 1.1 Lymphocytes % 21.9 Mean Corpuscular Hemoglobin 33.6 H Mean Corpuscular Hemoglobin Concent 33.5 Mean Corpuscular Volume 100.4 Mean Platelet Volume 8.4 Monocytes # 0.7 Monocytes % 14.4 H Neutrophils # 3.1 Neutrophils % 60.9 Nucleated Red Blood Cells # 0.0 Nucleated Red Blood Cells % 0.0 Platelet Count 206 # Potassium Level 3.4 L Red Blood Count 3.67 L Red Cell Distribution Width 15.4 H Sodium Level 142 White Blood Count 5.0 Medications Medications Current Medications Ondansetron HCl (Zofran Inj) 4 mg Q6H PRN IV NAUSEA AND/OR VOMITING; Start at 17:30 Acetaminophen (Tylenol Tab) 650 mg Q6H PRN PO PAIN LEVEL 1-3 OR FEVER; Start 09/14/16 at 17:30 Morphine Sulfate (morphine) 2 mg Q4H PRN IV SEVERE PAIN LEVEL 7-10; Start at 17:30 Docusate Sodium (Colace) 100 mg Q12H PRN PO CONSTIPATION; Start 09/14/16 at 17 :30 Magnesium Hydroxide (Milk Of Mag) 30 ml DAILY PRN PO CONSTIPATION Last administered on 09/25/16at 10:50; Admin Dose 30 ML; Start 09/14/16 at 17:30 Sodium Biphosphate/ Sodium Phosphate (Fleet Enema) 133 ml DAILY PRN [place] CONSTIPATION; Start 09/14/16 at 17:30 Famotidine (Pepcid) 20 mg Q12 PO Last administered on 09/26/16at 08:35; Admin Dose 20 MG; Start 09/14/16 at 21:00 Heparin Sodium (Porcine) 5000 unit 5,000 unit Q12 SC Last administered on 09/26at 08:45; Admin Dose 5,000 UNIT; Start 09/14/16 at 21:00 Sodium Chloride (1/2 NS) 1,000 ml @ 75 mls/hr [id number] IV Last administered on 09/25/16at 20:04; Admin Dose 75 MLS/HR; Start 09/14/16 at 17:21 Hydralazine HCl (Apresoline) 10 mg Q6H PRN IV ELEVATED BLOOD PRESSURE Last administered on 09/23/16at 04:27; Admin Dose 10 MG; Start 09/14/16 at 17:30 Nitroglycerin (Nitroglycerin (Sl Tab) 0.4 Mg) 1 tab Q5M PRN SL ANGINA; Start 09/14/16 at 17:30 Albuterol (Ventolin Hfa) 2 puff Q4H PRN INH WHEEZING AND SOB; Start 09/14/16 at 17:30 Atorvastatin Calcium (Lipitor) 5 mg DAILY@21 PO Last administered on 22:04; Admin Dose 5 MG; Start 09/14/16 at 21:00 Salmeterol Xinafoate/ Fluticasone (Advair 250/50 Diskus) 1 inh BID INH Last administered on 09/25/16 22:04; Admin Dose 1 INH; Start 09/15/16 at 09:00 Albuterol (Ventolin Hfa) 2 puff Q4H PRN INH RESP DISTRESS/SOB/ETC......; Start 09/15/16 at 09:30 Amlodipine Besylate (Norvasc) 10 mg DAILY PO Last administered on 09/26/16 08 :35; Admin Dose 10 MG; Start 09/16/16 at 09:00 Isosorbide Mononitrate (Imdur) 30 mg DAILY PO Last administered on 09/26/16 08:34; Admin Dose 30 MG; Start 09/16/16 at 09:00 Metoprolol Succinate (Toprol Xl) 25 mg DAILY PO Last administered on 08:35; Admin Dose 25 MG; Start 09/16/16 at 09:00 Folic Acid (Folic Acid) 1 mg DAILY PO Last administered on 09/26/16 08:35; Admin Dose 1 MG; Start 09/16/16 at 09:00 Cyanocobalamin (Vitamin B12) 1,000 mcg DAILY PO Last administered on 08:35; Admin Dose 1,000 MCG; Start 09/16/16 at 09:00 Lorazepam (Ativan) 1 mg Q1H PRN IV CONTROL WITHDRAWAL SYMPTOMS Last administered on 09/24/16 12:10; Admin Dose 1 MG; Start 09/15/16 at 19:30 Nicotine (Nicoderm 21 Mg/ 24hr) 1 patch DAILY TRANSDERM Last administered on 08:34; Admin Dose 1 PATCH; Start 09/16/16 at 09:00 Chlordiazepoxide 25 mg 25 mg BID PO Last administered on 09/26/16at 08:34; Admin Dose 25 MG; Start 09/19/16 at 10:00 Multivitamins/ Thiamine HCl/ Folic Acid/Sodium Chloride (Mvi-12 Adult/ Vitamin B1/Folic Acid/NS) 1,015.2 ml @ 125 mls/ hr DAILY@09 IVPB Last administered on 09/26/16at 08:34; Admin Dose 125 MLS/HR; Start 09/24/16 at 09:00 LUCY RUSH MD Sep 26, 2016 14:44
[2016-09-26] MEDS: SALMETEROL/FLUTICASONE 250/50 INHA INH SCH ×2 (16:46→20:23)
[2016-09-26] MEDS: SOD CHLORIDE 0.45% 1,000 ML IV SCH ×2 (16:49→22:41)
[2016-09-26] MEDS: ATORVASTATIN 10 MG TAB PO SCH (20:25)
[2016-09-26] MEDS: LORAZEPAM 2 MG INJ IV PRN (21:23)
[2016-09-27] VITALS (14 sets, daily range): BP systolic 102–145; BP diastolic 56–73; PULSE 75–100; RESP 17–20
[2016-09-27] MEDS: morphine 2 MG INJ IV PRN (03:04)
[2016-09-27 06:15] LABS: BASOPHILS % 0.3 % (0.0-2.0); EOSINOPHILS # 0.1 10^3/ul (0.0-0.5); EOSINOPHILS % 0.9 % (0.0-7.0); LYMPHOCYTES # 1.3 10^3/ul (0.8-2.9); LYMPHOCYTES % 22.4 % (15.0-51.0); MEAN CORPUSCULAR HEMOGLOBIN 33.7 pg (29.0-33.0); MEAN CORPUSCULAR HGB CONC 33.2 g/dl (32.0-37.0); MEAN CORPUSCULAR VOLUME 101.3 fl (82.0-101.0); MEAN PLATELET VOLUME 8.4 fl (7.4-10.4); MONOCYTE # 0.8 10^3/ul (0.3-0.9); MONOCYTES % 13.1 % (0.0-11.0); NEUTROPHIL # 3.6 10^3/ul (1.6-7.5); NEUTROPHILS % 63.3 % (39.0-77.0); PLATELET COUNT 213 10^3/UL (140-440); RED BLOOD COUNT 3.55 10^6/ul (4.70-6.10); RED CELL DISTRIBUTION WIDTH 15.1 % (11.5-14.5); UNCORRECTED WBC 5.7 10^3/ul (4.8-10.8); WHITE BLOOD COUNT 5.7 10^3/ul (4.8-10.8)
[2016-09-27 06:21] LABS: ALBUMIN 3.3 g/dl (3.3-4.9)
[2016-09-27 06:22] LABS: POTASSIUM 3.4 mmol/L (3.5-5.1)
[2016-09-27 06:24] LABS: BILIRUBIN,INDIRECT 0.5 mg/dl (0-1.1); BILIRUBIN,TOTAL 0.5 mg/dl (0.2-1.3); CREATININE 0.91 mg/dl (0.61-1.24); TOTAL PROTEIN 6.6 g/dl (6.1-8.1)
[2016-09-27 06:25] LABS: CALCIUM 9.3 mg/dl (8.4-10.2)
[2016-09-27] MEDS: SOD CHLORIDE 0.45% 1,000 ML IV SCH (06:46)
[2016-09-27 06:53] LABS: CONDITION 1; LH ANALYZER COMMENTS 1
[2016-09-27] MEDS ORDERED: POTASSIUM CHLORIDE (SR) 20 MEQ TAB PO STA (08:21)
--- NOTE | 2016-09-27 08:44 | PN ---
Date/Time of Note Date/Time of Note DATE: 09/27/16 TIME: 08:41 Assessment/Plan VTE Prophylaxis VTE Prophylaxis Intervention: heparin Lines/Catheters IV Catheter Type (from [facility]): Peripheral IV Urinary Cath still in place: No Assessment/Plan Assessment/Plan 70-year-old male coming in with a syncopal event with low blood sugars, EtOH intoxication, now in withdrawal. 1. Syncope - sec to ETOH intoxication - Wernicke's encephalopathy; ethanol levels elevated and pt showing signs of alcohol withdrawal. Slowly improving from intoxication, somewhat lethargic the last 1-2 days, thiamine 500 mg to be given 3 days- MRI negative, CT brain negative - sequelae of encephalopathy - appreciate neuro recs - banana bag, librium to 25 mg BID, ativan prn - ammonia level < 0 - replete folate and Vit b12 - neuro checks every 4 hours. - f/u PT and OT consults as well. 2. Chronic obstructive pulmonary disease. He is on DuoNebs p.r.n. as well. Monitor for any signs of any shortness of breath. 3. Coronary artery disease. Blood pressure was high when he came in. Continue hydralazine p.r.n. EF 50% stage I diastolic dysfunction 4. Essential hypertension. restart home medications. 5. Essential tremors. Continue to monitor for now. 6. Hypoglycemia - A1c = 5.1 ETOH induced - improved 7. Right eye conjunctivitis - cipro oph gtt - f/u endo consult rec's 8. Gastroesophageal reflux disease - H2 dacia. 9. Deep venous thrombosis prophylaxis. Heparin subQ dispo - f/u recs. as per clinical course. . customer technical services manager consult. avoidance of opioids at this time this progress note took greater than 20 minutes to complete Subjective 24 Hr Interval Summary Free Text/Dictation Patient had no overnight events. No fevers/chills. He states that he makes his own medications. Spoke to the nurse about the care plan. 10 minutes spent. Exam/Review of Systems Vital Signs Vitals Vital Signs Date Time Temp Pulse Resp B/P Pulse Ox O2 Delivery O2 Flow Rate FiO2 09/27/16 08:17 98.8 102 18 143/67 95 09/27/16 06:00 Room Air 09/25/16 14:00 4.0 09/23/16 18:12 21 Intake and Output 12/09/26/16 09/27/16 15:00 23:00 07:00 Intake Total 1615.2 ml 1120 ml Output Total 890 ml Balance 725.2 ml 1120 ml Exam Gen Geovanna: NAD, alert to self, time, thinks he made his own food HEENT: NC/AT, PERRLA, EOMI, no pharyngeal erythema, no tonsillar exudates, no lymphadenopathy, no JVD, no carotid bruits, right eye purulent discharge - improving NECK: supple, no thyromegaly THORAX: symmetrical, no obvious deformities CV: S1S2, RRR, no M/G/R Lungs: CTAB no W/C/R/R Abd: soft, NT/ND, +BS, no rebound, no guarding, neg HSM EXT: no edema, no ecchymosis, no clubbing, FROM Neuro: CN II-XII grossly intact, mild tremors Psych: confused, difficulty with articulation - mild improvement Skin: C/D/I Results Result Diagram: 09/27/16 0508 09/27/16 0508 Results 24 hrs Laboratory Tests Test 09/26/16 09:50 09/27/16 05:08 Anion Gap 15 16 Basophils # 0.0 0.0 Basophils % 0.5 0.3 Blood Morphology Comment Blood Urea Nitrogen 5 L 6 L Calcium Level 8.9 9.3 Carbon Dioxide Level 25 25 Chloride Level 105 107 Creatinine 0.81 0.91 Eosinophils # 0.1 0.1 Eosinophils % 2.3 0.9 Glucose Level 107 93 Hematocrit 36.9 L 36.0 L Hemoglobin 12.3 L 12.0 L Lymphocytes # 1.1 1.3 Lymphocytes % 21.9 22.4 Mean Corpuscular Hemoglobin 33.6 H 33.7 H Mean Corpuscular Hemoglobin Concent 33.5 33.2 Mean Corpuscular Volume 100.4 101.3 H Mean Platelet Volume 8.4 8.4 Monocytes # 0.7 0.8 Monocytes % 14.4 H 13.1 H Neutrophils # 3.1 3.6 Neutrophils % 60.9 63.3 Nucleated Red Blood Cells # 0.0 0.0 Nucleated Red Blood Cells % 0.0 0.0 Platelet Count 206 # 213 Potassium Level 3.4 L 3.4 L Red Blood Count 3.67 L 3.55 L Red Cell Distribution Width 15.4 H 15.1 H Sodium Level 142 145 H White Blood Count 5.0 5.7 Alanine Aminotransferase (ALT/SGPT) 50 Albumin 3.3 Albumin/Globulin Ratio 1.00 Alkaline Phosphatase 48 Aspartate Amino Transf (AST/SGOT) 26 Direct Bilirubin 0.00 Globulin 3.30 H Indirect Bilirubin 0.5 Total Bilirubin 0.5 Total Protein 6.6 Medications Medications Current Medications Ondansetron HCl (Zofran Inj) 4 mg Q6H PRN IV NAUSEA AND/OR VOMITING; Start at 17:30 Acetaminophen (Tylenol Tab) 650 mg Q6H PRN PO PAIN LEVEL 1-3 OR FEVER; Start 09/14/16 at 17:30 Morphine Sulfate (morphine) 2 mg Q4H PRN IV SEVERE PAIN LEVEL 7-10 Last administered on 09/27/16 03:04; Admin Dose 2 MG; Start 09/14/16 at 17:30 Docusate Sodium (Colace) 100 mg Q12H PRN PO CONSTIPATION; Start 09/14/16 at 17 :30 Magnesium Hydroxide (Milk Of Mag) 30 ml DAILY PRN PO CONSTIPATION Last administered on 09/25/16 10:50; Admin Dose 30 ML; Start 09/14/16 at 17:30 Sodium Biphosphate/ Sodium Phosphate (Fleet Enema) 133 ml DAILY PRN [place] CONSTIPATION; Start 09/14/16 at 17:30 Famotidine (Pepcid) 20 mg Q12 PO Last administered on 09/26/16 20:24; Admin Dose 20 MG; Start 09/14/16 at 21:00 Heparin Sodium (Porcine) 5000 unit 5,000 unit Q12 SC Last administered on 09/26 20:27; Admin Dose 5,000 UNIT; Start 09/14/16 at 21:00 Sodium Chloride (1/2 NS) 1,000 ml @ 75 mls/hr [id number] IV Last administered on 09/27/16 06:46; Admin Dose 75 MLS/HR; Start 09/14/16 at 17:21 Hydralazine HCl (Apresoline) 10 mg Q6H PRN IV ELEVATED BLOOD PRESSURE Last administered on 09/23/16 04:27; Admin Dose 10 MG; Start 09/14/16 at 17:30 Nitroglycerin (Nitroglycerin (Sl Tab) 0.4 Mg) 1 tab Q5M PRN SL ANGINA; Start 09/14/16 at 17:30 Albuterol (Ventolin Hfa) 2 puff Q4H PRN INH WHEEZING AND SOB; Start 09/14/16 at 17:30 Atorvastatin Calcium (Lipitor) 5 mg DAILY@21 PO Last administered on 20:25; Admin Dose 5 MG; Start 09/14/16 at 21:00 Salmeterol Xinafoate/ Fluticasone (Advair 250/50 Diskus) 1 inh BID INH Last administered on 09/26/16 20:23; Admin Dose 1 INH; Start 09/15/16 at 09:00 Albuterol (Ventolin Hfa) 2 puff Q4H PRN INH RESP DISTRESS/SOB/ETC......; Start 09/15/16 at 09:30 Amlodipine Besylate (Norvasc) 10 mg DAILY PO Last administered on 09/26/16 08 :35; Admin Dose 10 MG; Start 09/16/16 at 09:00 Isosorbide Mononitrate (Imdur) 30 mg DAILY PO Last administered on 09/26/16 08:34; Admin Dose 30 MG; Start 09/16/16 at 09:00 Metoprolol Succinate (Toprol Xl) 25 mg DAILY PO Last administered on 08:35; Admin Dose 25 MG; Start 09/16/16 at 09:00 Folic Acid (Folic Acid) 1 mg DAILY PO Last administered on 09/26/16 08:35; Admin Dose 1 MG; Start 09/16/16 at 09:00 Cyanocobalamin (Vitamin B12) 1,000 mcg DAILY PO Last administered on 08:35; Admin Dose 1,000 MCG; Start 09/16/16 at 09:00 Lorazepam (Ativan) 1 mg Q1H PRN IV CONTROL WITHDRAWAL SYMPTOMS Last administered on 09/26/16 21:23; Admin Dose 1 MG; Start 09/15/16 at 19:30 Nicotine (Nicoderm 21 Mg/ 24hr) 1 patch DAILY TRANSDERM Last administered on 08:34; Admin Dose 1 PATCH; Start 09/16/16 at 09:00 Chlordiazepoxide 25 mg 25 mg BID PO Last administered on 12/31/16at 20:25; Admin Dose 25 MG; Start 09/19/16 at 10:00 Multivitamins/ Thiamine HCl/ Folic Acid/Sodium Chloride (Mvi-12 Adult/ Vitamin B1/Folic Acid/NS) 1,015.2 ml @ 125 mls/ hr DAILY@09 IVPB Last administered on 09/26/16at 08:34; Admin Dose 125 MLS/HR; Start 09/24/16 at 09:00 ASHIA MTZ MD Sep 27, 2016 08:44
[2016-09-27] MEDS ORDERED: CYANOCOBALAMIN 1000 MCG INJ IM SCH (09:00)
[2016-09-27] MEDS: ISOSORBIDE MONONITRATE(SR)30 MG TAB PO SCH (09:19)
[2016-09-27] MEDS: CHLORDIAZEPOXIDE 25 MG CAP PO SCH ×2 (09:19→22:17)
[2016-09-27] MEDS: NICOTINE (21 MG/24 HR) PATCH TRANSDERM SCH (09:19)
[2016-09-27] MEDS: FAMOTIDINE 20 MG TAB PO SCH ×2 (09:19→22:17)
[2016-09-27] MEDS: CYANOCOBALAMIN 500 MCG TAB PO SCH (09:19)
[2016-09-27] MEDS: FOLIC ACID 1 MG TAB PO SCH (09:19)
[2016-09-27] MEDS: FOLIC ACID IVPB SCH (09:20)
[2016-09-27] MEDS: SALMETEROL/FLUTICASONE 250/50 INHA INH SCH ×2 (09:20→22:18)
[2016-09-27] MEDS: METOPROLOL (XL) 25 MG TAB PO SCH (09:20)
[2016-09-27] MEDS: MULTIVITAMINS IVPB SCH (09:20)
[2016-09-27] MEDS: THIAMINE IVPB SCH (09:20)
[2016-09-27] MEDS: AMLODIPINE 10 MG TAB PO SCH (09:20)
[2016-09-27] MEDS: SOD CHLORIDE 0.9% IVPB SCH (09:20)
[2016-09-27] MEDS: HEPARIN 5,000 UNIT/0.5 ML SYG SC SCH ×2 (09:36→22:18)
--- NOTE | 2016-09-27 14:03 | CONS ---
Date/Time of Note Date/Time of Note DATE: 09/27/16 TIME: 14:01 Assessment/Plan Assessment/Plan Additional Assessment/Plan 70 y/o M with hx of CAD, essential hypertension, essential tremors, alcohol abuse admitted with syncopal event and hypoglycemia undergoing treatment for alcohol withdrawal. MRI of brain showed microvascular disease, nothing acute. 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 PLAN: 1 Continue Thiamine 2 will follow Consultation Date/Type/Reason Admit Date/Time Sep 14, 2016 at 15:19 Initial Consult Date 09/23/16 Type of Consultation: neurology Referring Provider: ASHIA MTZ MD 24 HR Interval Summary Free Text/Dictation Doing well. No seizures. More communicative and responds appropriately. Constitutional: improved, no complaints Exam/Review of Systems Vital Signs Vitals Vital Signs Date Time Temp Pulse Resp B/P Pulse Ox O2 Delivery O2 Flow Rate FiO2 09/27/16 08:17 98.8 102 18 143/67 95 09/27/16 06:00 Room Air 09/25/16 14:00 4.0 09/23/16 18:12 21 Intake and Output 09/26/16 09/26/16 09/27/16 15:00 23:00 07:00 Intake Total 1615.2 ml 1120 ml Output Total 890 ml Balance 725.2 ml 1120 ml Exam Constitutional: alert, well developed Psych: nl mood/affect, no complaints Head: atraumatic, normocephalic Eyes: EOMI, nl conjunctiva, nl lids, nl sclera ENMT: mucosa pink and moist, nl external ears & nose, nl lips & teeth, nl nasal mucosa & septum Neck: non-tender, supple Respiratory: clear to auscultation, normal air movement Cardiovascular: nl pulses, regular rate and rhythm Gastrointestinal: nl liver, spleen, non-tender, soft Musculoskeletal: nl extremities to inspection Extremities: normal pulses Neurological: FOUNT[employer] PEN TURNER II-XII intact, confused, nl speech, nl strength Skin: nl turgor, rash or lesions Lymph: nl lymph nodes Results Result Diagram: 09/27/16 0508 09/27/16 0508 Results 24 hrs Laboratory Tests Test 09/27/16 05:08 Alanine Aminotransferase (ALT/SGPT) 50 Albumin 3.3 Albumin/Globulin Ratio 1.00 Alkaline Phosphatase 48 Anion Gap 16 Aspartate Amino Transf (AST/SGOT) 26 Basophils # 0.0 Basophils % 0.3 Blood Morphology Comment Blood Urea Nitrogen 6 L Calcium Level 9.3 Carbon Dioxide Level 25 Chloride Level 107 Creatinine 0.91 Direct Bilirubin 0.00 Eosinophils # 0.1 Eosinophils % 0.9 Globulin 3.30 H Glucose Level 93 Hematocrit 36.0 L Hemoglobin 12.0 L Indirect Bilirubin 0.5 Lymphocytes # 1.3 Lymphocytes % 22.4 Mean Corpuscular Hemoglobin 33.7 H Mean Corpuscular Hemoglobin Concent 33.2 Mean Corpuscular Volume 101.3 H Mean Platelet Volume 8.4 Monocytes # 0.8 Monocytes % 13.1 H Neutrophils # 3.6 Neutrophils % 63.3 Nucleated Red Blood Cells # 0.0 Nucleated Red Blood Cells % 0.0 Platelet Count 213 Potassium Level 3.4 L Red Blood Count 3.55 L Red Cell Distribution Width 15.1 H Sodium Level 145 H Total Bilirubin 0.5 Total Protein 6.6 White Blood Count 5.7 Medications Medications Current Medications Ondansetron HCl (Zofran Inj) 4 mg Q6H PRN IV NAUSEA AND/OR VOMITING; Start at 17:30 Acetaminophen (Tylenol Tab) 650 mg Q6H PRN PO PAIN LEVEL 1-3 OR FEVER; Start 09/14/16 at 17:30 Morphine Sulfate (morphine) 2 mg Q4H PRN IV SEVERE PAIN LEVEL 7-10 Last administered on 09/27/16 03:04; Admin Dose 2 MG; Start 09/14/16 at 17:30 Docusate Sodium (Colace) 100 mg Q12H PRN PO CONSTIPATION; Start 09/14/16 at 17 :30 Magnesium Hydroxide (Milk Of Mag) 30 ml DAILY PRN PO CONSTIPATION Last administered on 09/25/16at 10:50; Admin Dose 30 ML; Start 09/14/16 at 17:30 Sodium Biphosphate/ Sodium Phosphate (Fleet Enema) 133 ml DAILY PRN [place] CONSTIPATION; Start 09/14/16 at 17:30 Famotidine (Pepcid) 20 mg Q12 PO Last administered on 09/27/16 09:19; Admin Dose 20 MG; Start 09/14/16 at 21:00 Heparin Sodium (Porcine) 5000 unit 5,000 unit Q12 SC Last administered on 09:36; Admin Dose 5,000 UNIT; Start 09/14/16 at 21:00 Sodium Chloride (1/2 NS) 1,000 ml @ 75 mls/hr [id number] IV Last administered on 09/27/16 06:46; Admin Dose 75 MLS/HR; Start 09/14/16 at 17:21 Hydralazine HCl (Apresoline) 10 mg Q6H PRN IV ELEVATED BLOOD PRESSURE Last administered on 09/23/16at 04:27; Admin Dose 10 MG; Start 09/14/16 at 17:30 Nitroglycerin (Nitroglycerin (Sl Tab) 0.4 Mg) 1 tab Q5M PRN SL ANGINA; Start 09/14/16 at 17:30 Albuterol (Ventolin Hfa) 2 puff Q4H PRN INH WHEEZING AND SOB; Start 09/14/16 at 17:30 Atorvastatin Calcium (Lipitor) 5 mg DAILY@21 PO Last administered on at 20:25; Admin Dose 5 MG; Start 09/14/16 at 21:00 Salmeterol Xinafoate/ Fluticasone (Advair 250/50 Diskus) 1 inh BID INH Last administered on 09/27/16 09:20; Admin Dose 1 INH; Start 09/15/16 at 09:00 Albuterol (Ventolin Hfa) 2 puff Q4H PRN INH RESP DISTRESS/SOB/ETC......; Start 09/15/16 at 09:30 Amlodipine Besylate (Norvasc) 10 mg DAILY PO Last administered on 09/27/16 09: 20; Admin Dose 10 MG; Start 09/16/16 at 09:00 Isosorbide Mononitrate (Imdur) 30 mg DAILY PO Last administered on 09/27/16 09: 19; Admin Dose 30 MG; Start 09/16/16 at 09:00 Metoprolol Succinate (Toprol Xl) 25 mg DAILY PO Last administered on 09/27/16 09:20; Admin Dose 25 MG; Start 09/16/16 at 09:00 Folic Acid (Folic Acid) 1 mg DAILY PO Last administered on 09/27/16 09:19; Admin Dose 1 MG; Start 09/16/16 at 09:00 Cyanocobalamin (Vitamin B12) 1,000 mcg DAILY PO Last administered on 09/27/16 09:19; Admin Dose 1,000 MCG; Start 09/16/16 at 09:00 Lorazepam (Ativan) 1 mg Q1H PRN IV CONTROL WITHDRAWAL SYMPTOMS Last administered on 09/26/16at 21:23; Admin Dose 1 MG; Start 09/15/16 at 19:30 Nicotine (Nicoderm 21 Mg/ 24hr) 1 patch DAILY TRANSDERM Last administered on 09:19; Admin Dose 1 PATCH; Start 09/16/16 at 09:00 Chlordiazepoxide 25 mg 25 mg BID PO Last administered on 09/27/16 09:19; Admin Dose 25 MG; Start 09/19/16 at 10:00 Multivitamins/ Thiamine HCl/ Folic Acid/Sodium Chloride (Mvi-12 Adult/ Vitamin B1/Folic Acid/NS) 1,015.2 ml @ 125 mls/ hr DAILY@09 IVPB Last administered on 09/27/16 09:20; Admin Dose 125 MLS/HR; Start 09/24/16 at 09:00 LUCY RUSH MD Sep 27, 2016 14:03
[2016-09-27] MEDS: ATORVASTATIN 10 MG TAB PO SCH (22:17)
[2016-09-28] VITALS (15 sets, daily range): BP systolic 115–145; BP diastolic 60–90; PULSE 87–114; RESP 16–20
[2016-09-28] MEDS: SOD CHLORIDE 0.45% 1,000 ML IV SCH ×2 (01:23→14:41)
[2016-09-28] MEDS: SOD CHLORIDE 0.9% IVPB SCH (08:26)
[2016-09-28] MEDS: FOLIC ACID IVPB SCH (08:26)
[2016-09-28] MEDS: THIAMINE IVPB SCH (08:26)
[2016-09-28] MEDS: MULTIVITAMINS IVPB SCH (08:26)
[2016-09-28] MEDS: FAMOTIDINE 20 MG TAB PO SCH ×2 (08:27→20:41)
[2016-09-28] MEDS: CHLORDIAZEPOXIDE 25 MG CAP PO SCH (08:27)
[2016-09-28] MEDS: CYANOCOBALAMIN 500 MCG TAB PO SCH (08:27)
[2016-09-28] MEDS: SALMETEROL/FLUTICASONE 250/50 INHA INH SCH ×2 (08:27→20:40)
[2016-09-28] MEDS: FOLIC ACID 1 MG TAB PO SCH (08:27)
[2016-09-28] MEDS: AMLODIPINE 10 MG TAB PO SCH (08:28)
[2016-09-28] MEDS: ISOSORBIDE MONONITRATE(SR)30 MG TAB PO SCH (08:28)
[2016-09-28] MEDS: METOPROLOL (XL) 25 MG TAB PO SCH (08:28)
[2016-09-28] MEDS: NICOTINE (21 MG/24 HR) PATCH TRANSDERM SCH (08:30)
[2016-09-28] MEDS: HEPARIN 5,000 UNIT/0.5 ML SYG SC SCH ×2 (09:38→20:45)
--- NOTE | 2016-09-28 10:19 | PN ---
Date/Time of Note Date/Time of Note DATE: 09/28/16 TIME: 10:16 Assessment/Plan VTE Prophylaxis VTE Prophylaxis Intervention: heparin Lines/Catheters IV C[facility]ter Type (from [facility]): Peripheral IV Urinary Cath still in place: No Assessment/Plan Chief Complaint/Hosp Course Assessment/Plan: 70-year-old male coming in with a syncopal event with low blood sugars, EtOH intoxication, now in withdrawal. 1. Syncope - sec to ETOH intoxication - Wernicke's encephalopathy; ethanol levels elevated and pt showing signs of alcohol withdrawal. Slowly improving from intoxication, somewhat lethargic the last 1 day, thiamine 500 mg to be given 3 days total - MRI negative, CT brain negative - sequelae of encephalopathy - appreciate neuro recs - banana bag, librium to 25 mg BID, ativan prn - ammonia level < 0 - replete folate and Vit b12 - neuro checks every 4 hours. - f/u PT and OT consults as well. 2. Chronic obstructive pulmonary disease. He is on DuoNebs p.r.n. as well. Monitor for any signs of any shortness of breath. 3. Coronary artery disease. Blood pressure was high when he came in. Continue hydralazine p.r.n. EF 50% stage I diastolic dysfunction 4. Essential hypertension - home medications. 5. Essential tremors. Continue to monitor for now. 6. Hypoglycemia - A1c = 5.1 ETOH induced - improved 7. Right eye conjunctivitis - cipro oph gtt - f/u endo consult rec's 8. Gastroesophageal reflux disease - H2 dacia. 9. Deep venous thrombosis prophylaxis. Heparin subQ Problems: Subjective 24 Hr Interval Summary Free Text/Dictation No acute events overnight. Answering simple questions at the bedside. Exam/Review of Systems Vital Signs Vitals Vital Signs Date Time Temp Pulse Resp B/P Pulse Ox O2 Delivery O2 Flow Rate FiO2 09/28/16 08:19 97.9 94 16 136/80 94 09/28/16 06:00 Room Air 09/25/16 14:00 4.0 Intake and Output 09/27/16 09/27/16 09/28/16 15:00 23:00 07:00 Intake Total 560 ml 1012.6 ml Output Total 600 ml Balance 560 ml 412.6 ml Exam Gen Geovanna: NAD, alert to self and place only HEENT: NC/AT, PERRLA, EOMI, some right eye purulent discharge - improving NECK: supple, no thyromegaly THORAX: symmetrical, no obvious deformities CV: S1S2, RRR, no M/G/R Lungs: CTAB no W/C/R/R Abd: soft, NT/ND, +BS, no rebound, no guarding, neg HSM EXT: no edema, no ecchymosis, no clubbing, FROM Neuro: CN II-XII grossly intact, mild tremors Psych: confused, difficulty with articulation - mild improvement Skin: C/D/I Results Result Diagram: 09/27/16 0508 09/27/16 0508 Medications Medications Current Medications Ondansetron HCl (Zofran Inj) 4 mg Q6H PRN IV NAUSEA AND/OR VOMITING; Start at 17:30 Acetaminophen (Tylenol Tab) 650 mg Q6H PRN PO PAIN LEVEL 1-3 OR FEVER; Start 09/14/16 at 17:30 Morphine Sulfate (morphine) 2 mg Q4H PRN IV SEVERE PAIN LEVEL 7-10 Last administered on 09/27/16 03:04; Admin Dose 2 MG; Start 09/14/16 at 17:30 Docusate Sodium (Colace) 100 mg Q12H PRN PO CONSTIPATION; Start 09/14/16 at 17 :30 Magnesium Hydroxide (Milk Of Mag) 30 ml DAILY PRN PO CONSTIPATION Last administered on 09/25/16at 10:50; Admin Dose 30 ML; Start 09/14/16 at 17:30 Sodium Biphosphate/ Sodium Phosphate (Fleet Enema) 133 ml DAILY PRN [place] CONSTIPATION; Start 09/14/16 at 17:30 Famotidine (Pepcid) 20 mg Q12 PO Last administered on 09/28/16 08:27; Admin Dose 20 MG; Start 09/14/16 at 21:00 Heparin Sodium (Porcine) 5000 unit 5,000 unit Q12 SC Last administered on 09:38; Admin Dose 5,000 UNIT; Start 09/14/16 at 21:00 Sodium Chloride (1/2 NS) 1,000 ml @ 75 mls/hr [id number] IV Last administered on 09/28/16 01:23; Admin Dose 75 MLS/HR; Start 09/14/16 at 17:21 Hydralazine HCl (Apresoline) 10 mg Q6H PRN IV ELEVATED BLOOD PRESSURE Last administered on 09/23/16at 04:27; Admin Dose 10 MG; Start 09/14/16 at 17:30 Nitroglycerin (Nitroglycerin (Sl Tab) 0.4 Mg) 1 tab Q5M PRN SL ANGINA; Start 09/14/16 at 17:30 Albuterol (Ventolin Hfa) 2 puff Q4H PRN INH WHEEZING AND SOB; Start 09/14/16 at 17:30 Atorvastatin Calcium (Lipitor) 5 mg DAILY@21 PO Last administered on 09/27/16 22:17; Admin Dose 5 MG; Start 09/14/16 at 21:00 Salmeterol Xinafoate/ Fluticasone (Advair 250/50 Diskus) 1 inh BID INH Last administered on 09/28/16 08:27; Admin Dose 1 INH; Start 09/15/16 at 09:00 Albuterol (Ventolin Hfa) 2 puff Q4H PRN INH RESP DISTRESS/SOB/ETC......; Start 09/15/16 at 09:30 Amlodipine Besylate (Norvasc) 10 mg DAILY PO Last administered on 09/28/16 08: 28; Admin Dose 10 MG; Start 09/16/16 at 09:00 Isosorbide Mononitrate (Imdur) 30 mg DAILY PO Last administered on 09/28/16 08: 28; Admin Dose 30 MG; Start 09/16/16 at 09:00 Metoprolol Succinate (Toprol Xl) 25 mg DAILY PO Last administered on 09/28/16 08:28; Admin Dose 25 MG; Start 09/16/16 at 09:00 Folic Acid (Folic Acid) 1 mg DAILY PO Last administered on 09/28/16 08:27; Admin Dose 1 MG; Start 09/16/16 at 09:00 Cyanocobalamin (Vitamin B12) 1,000 mcg DAILY PO Last administered on 09/28/16 08:27; Admin Dose 1,000 MCG; Start 09/16/16 at 09:00 Lorazepam (Ativan) 1 mg Q1H PRN IV CONTROL WITHDRAWAL SYMPTOMS Last administered on 09/26/16at 21:23; Admin Dose 1 MG; Start 09/15/16 at 19:30 Nicotine 1 patch 1 patch DAILY TRANSDERM Last administered on 09/28/16 08:30; Admin Dose 1 PATCH; Start 09/16/16 at 09:00 Multivitamins/ Thiamine HCl/ Folic Acid/Sodium Chloride (Mvi-12 Adult/ Vitamin B1/Folic Acid/NS) 1,015.2 ml @ 125 mls/ hr DAILY@09 IVPB Last administered on 09/28/16 08:26; Admin Dose 125 MLS/HR; Start 09/24/16 at 09:00 Chlordiazepoxide (Librium) 10 mg BID PO ; Start 09/28/16 at 21:00; Status NITIN BASILIO Sep 28, 2016 10:19
--- NOTE | 2016-09-28 14:54 | CONS ---
Date/Time of Note Date/Time of Note DATE: 09/28/16 TIME: 14:52 Assessment/Plan Assessment/Plan Additional Assessment/Plan 70 y/o M with hx of CAD, essential hypertension, essential tremors, alcohol abuse admitted with syncopal event and hypoglycemia undergoing treatment for alcohol withdrawal. MRI of brain showed microvascular disease, nothing acute. 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 PLAN: 1 Continue Thiamine 2 sign off now, re consult if necessary. Consultation Date/Type/Reason Admit Date/Time Sep 14, 2016 at 15:19 Initial Consult Date 09/23/16 Type of Consultation: neurology Referring Provider: ASHIA MTZ MD 24 HR Interval Summary Free Text/Dictation Doin well, still in restrains. No seizures. Constitutional: improved, no complaints Exam/Review of Systems Vital Signs Vitals Vital Signs Date Time Temp Pulse Resp B/P Pulse Ox O2 Delivery O2 Flow Rate FiO2 09/28/16 14:00 98.0 93 18 117/60 95 Room Air 09/25/16 14:00 4.0 Intake and Output 09/27/16 09/27/16 09/28/16 15:00 23:00 07:00 Intake Total 560 ml 1012.6 ml Output Total 600 ml Balance 560 ml 412.6 ml Exam Constitutional: alert, well developed Psych: nl mood/affect, no complaints Head: atraumatic, normocephalic Eyes: EOMI, nl conjunctiva, nl lids ENMT: nl external ears & nose, nl lips & teeth, nl nasal mucosa & septum Neck: non-tender, supple Respiratory: clear to auscultation, normal air movement Cardiovascular: regular rate and rhythm Gastrointestinal: nl liver, spleen, non-tender, soft Musculoskeletal: nl extremities to inspection, nl gait and stance Extremities: normal pulses Neurological: [place] II-XII intact, nl speech, nl strength Skin: nl turgor, rash or lesions Lymph: nl lymph nodes Results Result Diagram: 09/27/16 0508 09/27/16 0508 Medications Medications Current Medications Ondansetron HCl (Zofran Inj) 4 mg Q6H PRN IV NAUSEA AND/OR VOMITING; Start at 17:30 Acetaminophen (Tylenol Tab) 650 mg Q6H PRN PO PAIN LEVEL 1-3 OR FEVER; Start 09/14/16 at 17:30 Morphine Sulfate (morphine) 2 mg Q4H PRN IV SEVERE PAIN LEVEL 7-10 Last administered on 09/27/16 03:04; Admin Dose 2 MG; Start 09/14/16 at 17:30 Docusate Sodium (Colace) 100 mg Q12H PRN PO CONSTIPATION; Start 09/14/16 at 17 :30 Magnesium Hydroxide (Milk Of Mag) 30 ml DAILY PRN PO CONSTIPATION Last administered on 09/25/16at 10:50; Admin Dose 30 ML; Start 09/14/16 at 17:30 Sodium Biphosphate/ Sodium Phosphate (Fleet Enema) 133 ml DAILY PRN [place] CONSTIPATION; Start 09/14/16 at 17:30 Famotidine (Pepcid) 20 mg Q12 PO Last administered on 09/28/16 08:27; Admin Dose 20 MG; Start 09/14/16 at 21:00 Heparin Sodium (Porcine) 5000 unit 5,000 unit Q12 SC Last administered on 09:38; Admin Dose 5,000 UNIT; Start 09/14/16 at 21:00 Sodium Chloride (1/2 NS) 1,000 ml @ 75 mls/hr [id number] IV Last administered on 09/28/16 01:23; Admin Dose 75 MLS/HR; Start 09/14/16 at 17:21 Hydralazine HCl (Apresoline) 10 mg Q6H PRN IV ELEVATED BLOOD PRESSURE Last administered on 09/23/16at 04:27; Admin Dose 10 MG; Start 09/14/16 at 17:30 Nitroglycerin (Nitroglycerin (Sl Tab) 0.4 Mg) 1 tab Q5M PRN SL ANGINA; Start 09/14/16 at 17:30 Albuterol (Ventolin Hfa) 2 puff Q4H PRN INH WHEEZING AND SOB; Start 09/14/16 at 17:30 Atorvastatin Calcium (Lipitor) 5 mg DAILY@21 PO Last administered on 09/27/16 22:17; Admin Dose 5 MG; Start 09/14/16 at 21:00 Salmeterol Xinafoate/ Fluticasone (Advair 250/50 Diskus) 1 inh BID INH Last administered on 09/28/16 08:27; Admin Dose 1 INH; Start 09/15/16 at 09:00 Albuterol (Ventolin Hfa) 2 puff Q4H PRN INH RESP DISTRESS/SOB/ETC......; Start 09/15/16 at 09:30 Amlodipine Besylate (Norvasc) 10 mg DAILY PO Last administered on 09/28/16 08: 28; Admin Dose 10 MG; Start 09/16/16 at 09:00 Isosorbide Mononitrate (Imdur) 30 mg DAILY PO Last administered on 09/28/16 08: 28; Admin Dose 30 MG; Start 09/16/16 at 09:00 Metoprolol Succinate (Toprol Xl) 25 mg DAILY PO Last administered on 09/28/16 08:28; Admin Dose 25 MG; Start 09/16/16 at 09:00 Folic Acid (Folic Acid) 1 mg DAILY PO Last administered on 09/28/16 08:27; Admin Dose 1 MG; Start 09/16/16 at 09:00 Cyanocobalamin (Vitamin B12) 1,000 mcg DAILY PO Last administered on 09/28/16 08:27; Admin Dose 1,000 MCG; Start 09/16/16 at 09:00 Lorazepam (Ativan) 1 mg Q1H PRN IV CONTROL WITHDRAWAL SYMPTOMS Last administered on 09/26/16at 21:23; Admin Dose 1 MG; Start 09/15/16 at 19:30 Nicotine 1 patch 1 patch DAILY TRANSDERM Last administered on 09/28/16 08:30; Admin Dose 1 PATCH; Start 09/16/16 at 09:00 Multivitamins/ Thiamine HCl/ Folic Acid/Sodium Chloride (Mvi-12 Adult/ Vitamin B1/Folic Acid/NS) 1,015.2 ml @ 125 mls/ hr DAILY@09 IVPB Last administered on 09/28/16 08:26; Admin Dose 125 MLS/HR; Start 09/24/16 at 09:00 Chlordiazepoxide (Librium) 10 mg BID PO ; Start 09/28/16 at 21:00 LUCY RUSH MD Sep 28, 2016 14:54
[2016-09-28] MEDS: CHLORDIAZEPOXIDE 5 MG CAP PO SCH (20:40)
[2016-09-28] MEDS: ATORVASTATIN 10 MG TAB PO SCH (20:41)
[2016-09-29] VITALS (14 sets, daily range): BP systolic 107–147; BP diastolic 62–84; PULSE 87–124; RESP 18–20
[2016-09-29] MEDS: LORAZEPAM 2 MG INJ IV PRN (00:57)
[2016-09-29] MEDS: SOD CHLORIDE 0.45% 1,000 ML IV SCH ×4 (04:01→22:42)
[2016-09-29 05:21] LABS: HEMATOCRIT 38.1 % (42.0-52.0); MEAN CORPUSCULAR HEMOGLOBIN 34.1 pg (29.0-33.0); MEAN CORPUSCULAR HGB CONC 34.3 g/dl (32.0-37.0); MEAN CORPUSCULAR VOLUME 99.4 fl (82.0-101.0); MEAN PLATELET VOLUME 8.3 fl (7.4-10.4); PLATELET COUNT 247 10^3/UL (140-440); RED BLOOD COUNT 3.83 10^6/ul (4.70-6.10); RED CELL DISTRIBUTION WIDTH 15.1 % (11.5-14.5); UNCORRECTED WBC 19.5 10^3/ul (4.8-10.8); WHITE BLOOD COUNT 19.5 10^3/ul (4.8-10.8)
[2016-09-29 05:26] LABS: POTASSIUM 3.7 mmol/L (3.5-5.1)
[2016-09-29 05:29] LABS: CONDITION 1; LH ANALYZER COMMENTS 1; SUSPECT 1
--- NOTE | 2016-09-29 08:54 | PN ---
Date/Time of Note Date/Time of Note DATE: 09/29/16 TIME: 08:52 Assessment/Plan VTE Prophylaxis VTE Prophylaxis Intervention: heparin Lines/Catheters [facility] IV Urinary Cath still in place: No Assessment/Plan Chief Complaint/Hosp Course Assessment/Plan: 70-year-old male coming in with a syncopal event with low blood sugars, EtOH intoxication, now in withdrawal. 1. Syncope - sec to ETOH intoxication - Wernicke's encephalopathy; ethanol levels elevated and pt showing signs of alcohol withdrawal. Slowly improving from intoxication, somewhat lethargic the last 1 day, thiamine 500 mg to be given 3 days total - MRI negative, CT brain negative - sequelae of encephalopathy - appreciate neuro recs - banana bag, librium 10 mg BID, ativan prn - ammonia level < 0 - replete folate and Vit b12 - neuro checks every 4 hours. - f/u PT and OT consults as well. 2. Chronic obstructive pulmonary disease. He is on DuoNebs p.r.n. as well. Monitor for any signs of any shortness of breath. 3. Coronary artery disease. Blood pressure was high when he came in. Continue hydralazine p.r.n. EF 50% stage I diastolic dysfunction 4. Essential hypertension - home medications. 5. Essential tremors. Continue to monitor for now. 6. Hypoglycemia - A1c = 5.1 ETOH induced - improved 7. Right eye conjunctivitis - cipro oph gtt - f/u endo consult rec's 8. Gastroesophageal reflux disease - H2 dacia. 9. Deep venous thrombosis prophylaxis. Heparin subQ 10. weakness - r/o infx, as WBC is higher today - check UA + Ucx, blood cx x 1 set, CXR Problems: Subjective 24 Hr Interval Summary Free Text/Dictation Pt more lethargic this AM, had higher temp today. Exam/Review of Systems Vital Signs Vitals Vital Signs Date Time Temp Pulse Resp B/P Pulse Ox O2 Delivery O2 Flow Rate FiO2 09/29/16 07:45 99.6 112 18 129/81 99 09/29/16 06:00 Room Air 09/25/16 14:00 4.0 Intake and Output 09/28/16 09/28/16 09/29/16 15:00 23:00 07:00 Intake Total 225 ml 1412.7 ml 1029.9 ml Balance 225 ml 1412.7 ml 1029.9 ml Exam Gen Geovanna: NAD, alert to self and place only HEENT: NC/AT, PERRLA, EOMI, some right eye purulent discharge - improving NECK: supple, no thyromegaly THORAX: symmetrical, no obvious deformities CV: S1S2, RRR, no M/G/R Lungs: CTAB no W/C/R/R Abd: soft, NT/ND, +BS, no rebound, no guarding, neg HSM EXT: no edema, no ecchymosis, no clubbing, FROM Neuro: CN II-XII grossly intact, mild tremors Psych: confused, difficulty with articulation - mild improvement Skin: C/D/I Results Result Diagram: 09/29/1643409/29/16434 Results 24 hrs Laboratory Tests Test 09/29/16 04:35 Anion Gap 17 H Basophils # Pending Basophils % Pending Blood Morphology Comment Blood Urea Nitrogen 9 Calcium Level 9.0 Carbon Dioxide Level 23 Chloride Level 103 Creatinine 1.00 Eosinophils # Pending Eosinophils % Pending Glucose Level 96 Hematocrit 38.1 L Hemoglobin 13.0 L Lymphocytes # Pending Lymphocytes % Pending Mean Corpuscular Hemoglobin 34.1 H Mean Corpuscular Hemoglobin Concent 34.3 Mean Corpuscular Volume 99.4 Mean Platelet Volume 8.3 Monocytes # Pending Monocytes % Pending Neutrophils # Pending Neutrophils % Pending Nucleated Red Blood Cells # Pending Nucleated Red Blood Cells % Pending Platelet Count 247 Potassium Level 3.7 Red Blood Count 3.83 L Red Cell Distribution Width 15.1 H Sodium Level 139 White Blood Count 19.5 #H Medications Medications Current Medications Ondansetron HCl (Zofran Inj) 4 mg Q6H PRN IV NAUSEA AND/OR VOMITING; Start at 17:30 Acetaminophen (Tylenol Tab) 650 mg Q6H PRN PO PAIN LEVEL 1-3 OR FEVER; Start 09/14/16 at 17:30 Morphine Sulfate (morphine) 2 mg Q4H PRN IV SEVERE PAIN LEVEL 7-10 Last administered on 09/27/16t 03:04; Admin Dose 2 MG; Start 09/14/16 at 17:30 Docusate Sodium (Colace) 100 mg Q12H PRN PO CONSTIPATION; Start 09/14/16 at 17 :30 Magnesium Hydroxide (Milk Of Mag) 30 ml DAILY PRN PO CONSTIPATION Last administered on 09/25/16at 10:50; Admin Dose 30 ML; Start 09/14/16 at 17:30 Sodium Biphosphate/ Sodium Phosphate (Fleet Enema) 133 ml DAILY PRN [place] CONSTIPATION; Start 09/14/16 at 17:30 Famotidine (Pepcid) 20 mg Q12 PO Last administered on 09/28/16 20:41; Admin Dose 20 MG; Start 09/14/16 at 21:00 Heparin Sodium (Porcine) 5000 unit 5,000 unit Q12 SC Last administered on 20:45; Admin Dose 5,000 UNIT; Start 09/14/16 at 21:00 Sodium Chloride (1/2 NS) 1,000 ml @ 75 mls/hr [id number] IV Last administered on 09/29/16 00:00; Admin Dose 75 MLS/HR; Start 09/14/16 at 17:21 Hydralazine HCl (Apresoline) 10 mg Q6H PRN IV ELEVATED BLOOD PRESSURE Last administered on 09/23/16at 04:27; Admin Dose 10 MG; Start 09/14/16 at 17:30 Nitroglycerin (Nitroglycerin (Sl Tab) 0.4 Mg) 1 tab Q5M PRN SL ANGINA; Start 09/14/16 at 17:30 Albuterol (Ventolin Hfa) 2 puff Q4H PRN INH WHEEZING AND SOB; Start 09/14/16 at 17:30 Atorvastatin Calcium (Lipitor) 5 mg DAILY@21 PO Last administered on 09/28/16 20:41; Admin Dose 5 MG; Start 09/14/16 at 21:00 Salmeterol Xinafoate/ Fluticasone (Advair 250/50 Diskus) 1 inh BID INH Last administered on 09/28/16 20:40; Admin Dose 1 INH; Start 09/15/16 at 09:00 Albuterol (Ventolin Hfa) 2 puff Q4H PRN INH RESP DISTRESS/SOB/ETC......; Start 09/15/16 at 09:30 Amlodipine Besylate (Norvasc) 10 mg DAILY PO Last administered on 09/28/16 08: 28; Admin Dose 10 MG; Start 09/16/16 at 09:00 Isosorbide Mononitrate (Imdur) 30 mg DAILY PO Last administered on 09/28/16 08: 28; Admin Dose 30 MG; Start 09/16/16 at 09:00 Metoprolol Succinate (Toprol Xl) 25 mg DAILY PO Last administered on 09/28/16 08:28; Admin Dose 25 MG; Start 09/16/16 at 09:00 Folic Acid (Folic Acid) 1 mg DAILY PO Last administered on 09/28/16 08:27; Admin Dose 1 MG; Start 09/16/16 at 09:00 Cyanocobalamin (Vitamin B12) 1,000 mcg DAILY PO Last administered on 09/28/16 08:27; Admin Dose 1,000 MCG; Start 09/16/16 at 09:00 Lorazepam (Ativan) 1 mg Q1H PRN IV CONTROL WITHDRAWAL SYMPTOMS Last administered on 09/29/16 00:57; Admin Dose 1 MG; Start 09/15/16 at 19:30 Nicotine 1 patch 1 patch DAILY TRANSDERM Last administered on 09/28/16 08:30; Admin Dose 1 PATCH; Start 09/16/16 at 09:00 Multivitamins/ Thiamine HCl/ Folic Acid/Sodium Chloride (Mvi-12 Adult/ Vitamin B1/Folic Acid/NS) 1,015.2 ml @ 125 mls/ hr DAILY@09 IVPB Last administered on 09/28/16 08:26; Admin Dose 125 MLS/HR; Start 09/24/16 at 09:00 Chlordiazepoxide (Librium) 10 mg BID PO Last administered on 09/28/16 20:40; Admin Dose 10 MG; Start 09/28/16 at 21:00 NITIN CORTEZ Sep 29, 2016 08:54
[2016-09-29] MEDS: METOPROLOL (XL) 25 MG TAB PO SCH (09:00)
[2016-09-29] MEDS: AMLODIPINE 10 MG TAB PO SCH (09:00)
[2016-09-29] MEDS: CYANOCOBALAMIN 500 MCG TAB PO SCH (09:00)
[2016-09-29] MEDS: FAMOTIDINE 20 MG TAB PO SCH ×2 (09:00→21:00)
[2016-09-29] MEDS: ISOSORBIDE MONONITRATE(SR)30 MG TAB PO SCH (09:00)
[2016-09-29] MEDS: FOLIC ACID 1 MG TAB PO SCH (09:00)
[2016-09-29] MEDS: CHLORDIAZEPOXIDE 5 MG CAP PO SCH ×2 (09:00→21:00)
[2016-09-29] MEDS: SALMETEROL/FLUTICASONE 250/50 INHA INH SCH ×2 (09:00→21:01)
--- NOTE | 2016-09-29 09:14 | RADRPT ---
PROCEDURE: XR Chest 1 View. CLINICAL INDICATION: Shortness of breath, pneumonia TECHNIQUE: AP view of the chest were obtained. COMPARISON: September 14, 2016 FINDINGS: The cardiomediastinal silhouette is within normal limits. Minimal atelectasis is identified in the l eft lower lobe. No consolidations are identified. No pneumothorax is seen. Small calcified granulom as are identified at the right lung base. Osseous structures are intact. IMPRESSION: Subsegmental atelectasis in the left lower lobe. Calcified granulomatous disease at the right lung base. RPTAT: AA .Natanael Ty MD, Date Time Electronically viewed and signed by .Natanael Ty MD, on 09/29/2016 09:14 .P/
[2016-09-29] MEDS: NICOTINE (21 MG/24 HR) PATCH TRANSDERM SCH (09:21)
[2016-09-29] MEDS: FOLIC ACID IVPB SCH (09:21)
[2016-09-29] MEDS: SOD CHLORIDE 0.9% IVPB SCH (09:21)
[2016-09-29] MEDS: THIAMINE IVPB SCH (09:21)
[2016-09-29] MEDS: MULTIVITAMINS IVPB SCH (09:21)
[2016-09-29] MEDS: HEPARIN 5,000 UNIT/0.5 ML SYG SC SCH ×2 (09:30→21:08)
[2016-09-29 09:59] LABS: LYMPHOCYTES # 2.1 10^3/ul (0.8-2.9); MONOCYTE # 0.6 10^3/ul (0.3-0.9); NEUTROPHIL # 15.8 10^3/ul (1.6-7.5)
[2016-09-29 10:00] LABS: ANISOCYTOSIS 1+; PLATELET ESTIMATE PLT APPEAR ADEQUATE
[2016-09-29 19:41] LABS: ADD UMIC NO; URINE BILIRUBIN (Dip) NEGATIVE (NEGATIVE); URINE BLOOD (Dip) NEGATIVE (NEGATIVE); URINE COLOR LT. YELLOW (YELLOW); URINE GLUCOSE (Dip) NEGATIVE (NEGATIVE); URINE KETONES (Dip) NEGATIVE (NEGATIVE); URINE LEUKOCYTE ESTERASE (Dip) NEGATIVE (NEGATIVE); URINE NITRITE (Dip) NEGATIVE (NEGATIVE); URINE TOTAL PROTEIN (Dip) NEGATIVE (NEGATIVE); URINE UROBILINOGEN (Dip) 1.0 E.U./dL (0.1-1.0)
[2016-09-29] MEDS: ATORVASTATIN 10 MG TAB PO SCH (21:00)
[2016-09-30] VITALS (10 sets, daily range): BP systolic 121–134; BP diastolic 68–80; PULSE 80–96; RESP 18–22
[2016-09-30] MEDS: SOD CHLORIDE 0.45% 1,000 ML IV SCH ×2 (05:30→20:01)
[2016-09-30] MEDS: MAGNESIUM HYDROXIDE 30ML CUP PO PRN (05:34)
[2016-09-30 06:10] LABS: BASOPHILS % 0.3 % (0.0-2.0); EOSINOPHILS % 0.3 % (0.0-7.0); HEMATOCRIT 35.6 % (42.0-52.0); HEMOGLOBIN 12.1 g/dl (14.0-18.0); LYMPHOCYTES # 1.3 10^3/ul (0.8-2.9); LYMPHOCYTES % 12.5 % (15.0-51.0); MEAN CORPUSCULAR VOLUME 100.2 fl (82.0-101.0); MEAN PLATELET VOLUME 8.6 fl (7.4-10.4); MONOCYTE # 0.8 10^3/ul (0.3-0.9); MONOCYTES % 8.2 % (0.0-11.0); NEUTROPHIL # 8.1 10^3/ul (1.6-7.5); NEUTROPHILS % 78.7 % (39.0-77.0); PLATELET COUNT 217 10^3/UL (140-440); RED BLOOD COUNT 3.55 10^6/ul (4.70-6.10); UNCORRECTED WBC 10.3 10^3/ul (4.8-10.8); WHITE BLOOD COUNT 10.3 10^3/ul (4.8-10.8)
[2016-09-30 06:34] LABS: CONDITION 1; LH ANALYZER COMMENTS 1
[2016-09-30 07:40] LABS: POTASSIUM 3.9 mmol/L (3.5-5.1)
[2016-09-30 07:42] LABS: CREATININE 0.82 mg/dl (0.61-1.24)
[2016-09-30 07:43] LABS: CALCIUM 8.9 mg/dl (8.4-10.2)
[2016-09-30] MEDS: FOLIC ACID IVPB SCH (08:40)
[2016-09-30] MEDS: MULTIVITAMINS IVPB SCH (08:40)
[2016-09-30] MEDS: SOD CHLORIDE 0.9% IVPB SCH (08:40)
[2016-09-30] MEDS: THIAMINE IVPB SCH (08:40)
[2016-09-30] MEDS: SALMETEROL/FLUTICASONE 250/50 INHA INH SCH ×2 (08:40→20:23)
[2016-09-30] MEDS: NICOTINE (21 MG/24 HR) PATCH TRANSDERM SCH (08:41)
[2016-09-30] MEDS: ISOSORBIDE MONONITRATE(SR)30 MG TAB PO SCH (08:41)
[2016-09-30] MEDS: FOLIC ACID 1 MG TAB PO SCH (08:41)
[2016-09-30] MEDS: FAMOTIDINE 20 MG TAB PO SCH ×2 (08:43→20:20)
[2016-09-30] MEDS: AMLODIPINE 10 MG TAB PO SCH (08:43)
[2016-09-30] MEDS: CYANOCOBALAMIN 500 MCG TAB PO SCH (08:43)
[2016-09-30] MEDS: CHLORDIAZEPOXIDE 5 MG CAP PO SCH ×2 (08:43→20:20)
[2016-09-30] MEDS: METOPROLOL (XL) 25 MG TAB PO SCH (08:44)
[2016-09-30] MEDS: HEPARIN 5,000 UNIT/0.5 ML SYG SC SCH ×2 (08:46→20:27)
--- NOTE | 2016-09-30 10:11 | PN ---
Date/Time of Note Date/Time of Note DATE: 09/30/16 TIME: 10:04 Assessment/Plan VTE Prophylaxis VTE Prophylaxis Intervention: heparin Lines/Catheters IV Catheter Type (from [facility]): Peripheral IV Urinary Cath still in place: No Assessment/Plan Chief Complaint/Hosp Course Assessment/Plan: 70-year-old male coming in with a syncopal event with low blood sugars, EtOH intoxication, now in withdrawal. 1. Syncope - sec to ETOH intoxication - Wernicke's encephalopathy; ethanol levels elevated and pt showing signs of alcohol withdrawal. Slowly improving from intoxication, somewhat lethargic the last 1 day, thiamine 500 mg to be given 3 days total - MRI negative, CT brain negative - sequelae of encephalopathy - appreciate neuro recs - banana bag, librium 10 mg BID, ativan prn - ammonia level < 0 - replete folate and Vit b12 - f/u PT and OT consults as well. - will d/c restraints today as well 2. Chronic obstructive pulmonary disease. He is on DuoNebs p.r.n. as well. Monitor for any signs of any shortness of breath. 3. Coronary artery disease. Blood pressure was high when he came in. Continue hydralazine p.r.n. EF 50% stage I diastolic dysfunction 4. Essential hypertension - home medications. 5. Essential tremors. Continue to monitor for now. 6. Hypoglycemia - A1c = 5.1 ETOH induced - improved 7. Right eye conjunctivitis - cipro oph gtt - f/u endo consult rec's 8. Gastroesophageal reflux disease - H2 dacia. 9. Deep venous thrombosis prophylaxis. Heparin subQ 10. weakness - r/o infx, although WBC improved today. - monitor Problems: Subjective 24 Hr Interval Summary Free Text/Dictation Pt a bit more alert today, no acute events overnight. Still in restraints. Exam/Review of Systems Vital Signs Vitals Vital Signs Date Time Temp Pulse Resp B/P Pulse Ox O2 Delivery O2 Flow Rate FiO2 09/30/16 08:00 97.8 87 18 131/76 92 Room Air 09/30/16 00:49 21 Intake and Output 09/29/16 09/29/16 09/30/16 15:00 23:00 07:00 Intake Total 2045 ml 450 ml Output Total 300 ml Balance 2045 ml 150 ml Exam Gen Geovanna: NAD, alert to self and place only HEENT: NC/AT, PERRLA, EOMI, some right eye purulent discharge - improving NECK: supple, no thyromegaly THORAX: symmetrical, no obvious deformities CV: S1S2, RRR, no M/G/R Lungs: CTAB no W/C/R/R Abd: soft, NT/ND, +BS, no rebound, no guarding, neg HSM EXT: no edema, no ecchymosis, no clubbing, FROM Neuro: CN II-XII grossly intact, mild tremors Psych: confused, difficulty with articulation - mild improvement Skin: C/D/I Results Result Diagram: 09/30/16 0500 09/30/16 0500 Results 24 hrs Laboratory Tests Test 09/29/16 19:20 09/30/16 05:00 Urine Bilirubin NEGATIVE Urine Clarity CLEAR Urine Color LT. YELLOW Urine Glucose NEGATIVE Urine Hemoglobin NEGATIVE Urine Ketones NEGATIVE Urine Leukocyte Esterase NEGATIVE Urine Nitrite NEGATIVE Urine Specific Distant 1.010 Urine Total Protein NEGATIVE Urine Urobilinogen 1.0 E.U./dL Urine pH 6.0 Anion Gap 15 Basophils # 0.0 Basophils % 0.3 Blood Morphology Comment Blood Urea Nitrogen 10 Calcium Level 8.9 Carbon Dioxide Level 25 Chloride Level 107 Creatinine 0.82 Eosinophils # 0.0 Eosinophils % 0.3 Glucose Level 80 Hematocrit 35.6 L Hemoglobin 12.1 L Lymphocytes # 1.3 Lymphocytes % 12.5 L Mean Corpuscular Hemoglobin 34.0 H Mean Corpuscular Hemoglobin Concent 34.0 Mean Corpuscular Volume 100.2 Mean Platelet Volume 8.6 Monocytes # 0.8 Monocytes % 8.2 Neutrophils # 8.1 H Neutrophils % 78.7 H Nucleated Red Blood Cells # 0.0 Nucleated Red Blood Cells % 0.0 Platelet Count 217 Potassium Level 3.9 Red Blood Count 3.55 L Red Cell Distribution Width 15.0 H Sodium Level 143 White Blood Count 10.3 # Medications Medications Current Medications Ondansetron HCl (Zofran Inj) 4 mg Q6H PRN IV NAUSEA AND/OR VOMITING; Start at 17:30 Acetaminophen (Tylenol Tab) 650 mg Q6H PRN PO PAIN LEVEL 1-3 OR FEVER; Start 09/14/16 at 17:30 Morphine Sulfate (morphine) 2 mg Q4H PRN IV SEVERE PAIN LEVEL 7-10 Last administered on 09/27/16t 03:04; Admin Dose 2 MG; Start 09/14/16 at 17:30 Docusate Sodium (Colace) 100 mg Q12H PRN PO CONSTIPATION; Start 09/14/16 at 17 :30 Magnesium Hydroxide (Milk Of Mag) 30 ml DAILY PRN PO CONSTIPATION Last administered on 09/30/16 05:34; Admin Dose 30 ML; Start 09/14/16 at 17:30 Sodium Biphosphate/ Sodium Phosphate (Fleet Enema) 133 ml DAILY PRN [place] CONSTIPATION; Start 09/14/16 at 17:30 Famotidine (Pepcid) 20 mg Q12 PO Last administered on 09/30/16 08:43; Admin Dose 20 MG; Start 09/14/16 at 21:00 Heparin Sodium (Porcine) 5000 unit 5,000 unit Q12 SC Last administered on 08:46; Admin Dose 5,000 UNIT; Start 09/14/16 at 21:00 Sodium Chloride (1/2 NS) 1,000 ml @ 75 mls/hr [id number] IV Last administered on 09/29/16 22:42; Admin Dose 75 MLS/HR; Start 09/14/16 at 17:21 Hydralazine HCl (Apresoline) 10 mg Q6H PRN IV ELEVATED BLOOD PRESSURE Last administered on 09/23/16at 04:27; Admin Dose 10 MG; Start 09/14/16 at 17:30 Nitroglycerin (Nitroglycerin (Sl Tab) 0.4 Mg) 1 tab Q5M PRN SL ANGINA; Start 09/14/16 at 17:30 Albuterol (Ventolin Hfa) 2 puff Q4H PRN INH WHEEZING AND SOB; Start 09/14/16 at 17:30 Atorvastatin Calcium (Lipitor) 5 mg DAILY@21 PO Last administered on 09/29/16 21:00; Admin Dose 5 MG; Start 09/14/16 at 21:00 Salmeterol Xinafoate/ Fluticasone (Advair 250/50 Diskus) 1 inh BID INH Last administered on 09/30/16 08:40; Admin Dose 1 INH; Start 09/15/16 at 09:00 Albuterol (Ventolin Hfa) 2 puff Q4H PRN INH RESP DISTRESS/SOB/ETC......; Start 09/15/16 at 09:30 Amlodipine Besylate (Norvasc) 10 mg DAILY PO Last administered on 09/30/16 08: 43; Admin Dose 10 MG; Start 09/16/16 at 09:00 Isosorbide Mononitrate (Imdur) 30 mg DAILY PO Last administered on 09/30/16 08: 41; Admin Dose 30 MG; Start 09/16/16 at 09:00 Metoprolol Succinate (Toprol Xl) 25 mg DAILY PO Last administered on 09/30/16 08:44; Admin Dose 25 MG; Start 09/16/16 at 09:00 Folic Acid (Folic Acid) 1 mg DAILY PO Last administered on 09/30/16 08:41; Admin Dose 1 MG; Start 09/16/16 at 09:00 Cyanocobalamin (Vitamin B12) 1,000 mcg DAILY PO Last administered on 09/30/16 08:43; Admin Dose 1,000 MCG; Start 09/16/16 at 09:00 Lorazepam (Ativan) 1 mg Q1H PRN IV CONTROL WITHDRAWAL SYMPTOMS Last administered on 09/29/16 00:57; Admin Dose 1 MG; Start 09/15/16 at 19:30 Nicotine 1 patch 1 patch DAILY TRANSDERM Last administered on 09/30/16 08:41; Admin Dose 1 PATCH; Start 09/16/16 at 09:00 Multivitamins/ Thiamine HCl/ Folic Acid/Sodium Chloride (Mvi-12 Adult/ Vitamin B1/Folic Acid/NS) 1,015.2 ml @ 125 mls/ hr DAILY@09 IVPB Last administered on 09/30/16 08:40; Admin Dose 125 MLS/HR; Start 09/24/16 at 09:00 Chlordiazepoxide (Librium) 10 mg BID PO Last administered on 09/30/16 08:43; Admin Dose 10 MG; Start 09/28/16 at 21:00 NITIN CORTEZ Sep 30, 2016 10:10
[2016-09-30] MEDS: ATORVASTATIN 10 MG TAB PO SCH (20:21)
[2016-09-30] MEDS: ALBUTEROL/IPRATROPIUM (NEB) 3 ML AMP HHN PRN (23:59)
[2016-10-01] MEDS: morphine 2 MG INJ IV PRN ×3 (00:16→22:20)
[2016-10-01] MEDS: SOD CHLORIDE 0.45% 1,000 ML IV SCH (01:10)
[2016-10-01 07:25] VITALS: BP 139/77; RESP 20
[2016-10-01 07:31] LABS: BASOPHIL # 0.1 10^3/ul (0.0-0.1); BASOPHILS % 1.3 % (0.0-2.0); EOSINOPHILS # 0.1 10^3/ul (0.0-0.5); EOSINOPHILS % 1.3 % (0.0-7.0); HEMATOCRIT 33.6 % (42.0-52.0); HEMOGLOBIN 11.4 g/dl (14.0-18.0); LYMPHOCYTES # 1.3 10^3/ul (0.8-2.9); LYMPHOCYTES % 19.4 % (15.0-51.0); MEAN CORPUSCULAR HEMOGLOBIN 33.9 pg (29.0-33.0); MEAN CORPUSCULAR VOLUME 99.7 fl (82.0-101.0); MEAN PLATELET VOLUME 9.1 fl (7.4-10.4); MONOCYTE # 0.5 10^3/ul (0.3-0.9); MONOCYTES % 8.3 % (0.0-11.0); NEUTROPHIL # 4.5 10^3/ul (1.6-7.5); NEUTROPHILS % 69.7 % (39.0-77.0); PLATELET COUNT 220 10^3/UL (140-440); RED BLOOD COUNT 3.37 10^6/ul (4.70-6.10); RED CELL DISTRIBUTION WIDTH 14.7 % (11.5-14.5); UNCORRECTED WBC 6.5 10^3/ul (4.8-10.8); WHITE BLOOD COUNT 6.5 10^3/ul (4.8-10.8)
[2016-10-01 07:40] LABS: CONDITION 1; LH ANALYZER COMMENTS 1
[2016-10-01 08:09] LABS: POTASSIUM 3.3 mmol/L (3.5-5.1)
[2016-10-01 08:12] LABS: CALCIUM 8.5 mg/dl (8.4-10.2); CREATININE 0.75 mg/dl (0.61-1.24)
[2016-10-01] MEDS: CHLORDIAZEPOXIDE 5 MG CAP PO SCH ×2 (09:12→20:19)
[2016-10-01] MEDS: ISOSORBIDE MONONITRATE(SR)30 MG TAB PO SCH (09:12)
[2016-10-01] MEDS: CYANOCOBALAMIN 500 MCG TAB PO SCH (09:13)
[2016-10-01] MEDS: FOLIC ACID 1 MG TAB PO SCH (09:13)
[2016-10-01] MEDS: AMLODIPINE 10 MG TAB PO SCH (09:13)
[2016-10-01] MEDS: FOLIC ACID IVPB SCH ×3 (09:14→18:06)
[2016-10-01] MEDS: MULTIVITAMINS IVPB SCH ×3 (09:14→18:06)
[2016-10-01] MEDS: THIAMINE IVPB SCH ×3 (09:14→18:06)
[2016-10-01] MEDS: METOPROLOL (XL) 25 MG TAB PO SCH (09:14)
[2016-10-01] MEDS: NICOTINE (21 MG/24 HR) PATCH TRANSDERM SCH (09:14)
[2016-10-01] MEDS: SOD CHLORIDE 0.9% IVPB SCH ×3 (09:14→18:06)
[2016-10-01] MEDS: FAMOTIDINE 20 MG TAB PO SCH ×2 (09:14→20:20)
[2016-10-01] MEDS: HEPARIN 5,000 UNIT/0.5 ML SYG SC SCH ×2 (09:15→20:24)
[2016-10-01] MEDS: SALMETEROL/FLUTICASONE 250/50 INHA INH SCH ×2 (09:16→20:21)
[2016-10-01 09:17] VITALS: BP 174/87; PULSE 79; RESP 18
[2016-10-01] MEDS ORDERED: POTASSIUM CHLORIDE (SR) 20 MEQ TAB PO STA (10:04)
--- NOTE | 2016-10-01 10:12 | PN ---
Date/Time of Note Date/Time of Note DATE: 10/01/16 TIME: 10:10 Assessment/Plan VTE Prophylaxis VTE Prophylaxis Intervention: heparin Lines/Catheters IV [facility] Type (from [facility] [place] Urinary Cath still in place: No Assessment/Plan Chief Complaint/Hosp Course Assessment/Plan: 70-year-old male coming in with a syncopal event with low blood sugars, EtOH intoxication, now in withdrawal. 1. Syncope - sec to ETOH intoxication - Wernicke's encephalopathy; ethanol levels elevated and pt showing signs of alcohol withdrawal. Slowly improving from intoxication, thiamine 500 given for 3 days total - MRI negative, CT brain negative - sequelae of encephalopathy - appreciate neuro recs - banana bag, librium 10 mg BID, ativan prn - ammonia level < 0 - replete folate and Vit b12 - f/u PT and OT consults as well. 2. Chronic obstructive pulmonary disease. He is on DuoNebs p.r.n. as well. Monitor for any signs of any shortness of breath. - regarding calcified granuloma on CXR - will get CT chest w/IV contrast to further evaluate as well. 3. Coronary artery disease. Blood pressure was high when he came in. Continue hydralazine p.r.n. EF 50% stage I diastolic dysfunction 4. Essential hypertension - home medications. 5. Essential tremors. Continue to monitor for now. 6. Hypoglycemia - A1c = 5.1 ETOH induced - improved 7. Right eye conjunctivitis - cipro oph gtt - f/u endo consult rec's 8. Gastroesophageal reflux disease - H2 dacia. 9. Deep venous thrombosis prophylaxis. Heparin subQ Problems: Subjective 24 Hr Interval Summary Free Text/Dictation Pt off restraints since yesterday, worked with PT yesterday as well. Exam/Review of Systems Vital Signs Vitals Vital Signs Date Time Temp Pulse Resp B/P Pulse Ox O2 Delivery O2 Flow Rate FiO2 10/01/16 09:17 97.5 79 18 174/87 97 Room Air 10/01/16 07:40 21 Intake and Output 09/30/16 09/30/16 10/01/16 15:00 23:00 07:00 Intake Total 1820 ml 950 ml Output Total 300 ml Balance 1520 ml 950 ml Exam Gen Geovanna: NAD, still somewhat lethargic at times HEENT: NC/AT, PERRLA, EOMI, some right eye purulent discharge - improving NECK: supple, no thyromegaly THORAX: symmetrical, no obvious deformities CV: S1S2, RRR, no M/G/R Lungs: CTAB no W/C/R/R Abd: soft, NT/ND, +BS, no rebound, no guarding, neg HSM EXT: no edema, no ecchymosis, no clubbing, FROM Neuro: CN II-XII grossly intact, mild tremors Psych: confused, difficulty with articulation - mild improvement Skin: C/D/I Results Result Diagram: 10/01/1653410/01/16534 Results 24 hrs Laboratory Tests Test 10/01/16 05:35 Anion Gap 12 Basophils # 0.1 Basophils % 1.3 Blood Morphology Comment Blood Urea Nitrogen 9 Calcium Level 8.5 Carbon Dioxide Level 28 Chloride Level 105 Creatinine 0.75 Eosinophils # 0.1 Eosinophils % 1.3 Glucose Level 118 Hematocrit 33.6 L Hemoglobin 11.4 L Lymphocytes # 1.3 Lymphocytes % 19.4 Mean Corpuscular Hemoglobin 33.9 H Mean Corpuscular Hemoglobin Concent 34.0 Mean Corpuscular Volume 99.7 Mean Platelet Volume 9.1 Monocytes # 0.5 Monocytes % 8.3 Neutrophils # 4.5 Neutrophils % 69.7 Nucleated Red Blood Cells # 0.0 Nucleated Red Blood Cells % 0.0 Platelet Count 220 Potassium Level 3.3 L Red Blood Count 3.37 L Red Cell Distribution Width 14.7 H Sodium Level 142 White Blood Count 6.5 # Medications Medications Current Medications Ondansetron HCl (Zofran Inj) 4 mg Q6H PRN IV NAUSEA AND/OR VOMITING; Start at 17:30 Acetaminophen (Tylenol Tab) 650 mg Q6H PRN PO PAIN LEVEL 1-3 OR FEVER; Start 09/14/16 at 17:30 Morphine Sulfate (morphine) 2 mg Q4H PRN IV SEVERE PAIN LEVEL 7-10 Last administered on 10/01/16 00:16; Admin Dose 2 MG; Start 09/14/16 at 17:30 Docusate Sodium (Colace) 100 mg Q12H PRN PO CONSTIPATION; Start 09/14/16 at 17 :30 Magnesium Hydroxide (Milk Of Mag) 30 ml DAILY PRN PO CONSTIPATION Last administered on 09/30/16 05:34; Admin Dose 30 ML; Start 09/14/16 at 17:30 Sodium Biphosphate/ Sodium Phosphate (Fleet Enema) 133 ml DAILY PRN [place] CONSTIPATION; Start 09/14/16 at 17:30 Famotidine (Pepcid) 20 mg Q12 PO Last administered on 10/01/16 09:14; Admin Dose 20 MG; Start 09/14/16 at 21:00 Heparin Sodium (Porcine) (Heparin (5000 Units/0.5 ml)) 5,000 unit Q12 SC Last administered on 10/01/16 09:15; Admin Dose 5,000 UNIT; Start 09/14/16 at 21:00 Hydralazine HCl (Apresoline) 10 mg Q6H PRN IV ELEVATED BLOOD PRESSURE Last administered on 09/23/16at 04:27; Admin Dose 10 MG; Start 09/14/16 at 17:30 Nitroglycerin (Nitroglycerin (Sl Tab) 0.4 Mg) 1 tab Q5M PRN SL ANGINA; Start 09/14/16 at 17:30 Albuterol (Ventolin Hfa) 2 puff Q4H PRN INH WHEEZING AND SOB; Start 09/14/16 at 17:30 Atorvastatin Calcium (Lipitor) 5 mg DAILY@21 PO Last administered on 09/30/16 20:21; Admin Dose 5 MG; Start 09/14/16 at 21:00 Salmeterol Xinafoate/ Fluticasone (Advair 250/50 Diskus) 1 inh BID INH Last administered on 10/01/16 09:16; Admin Dose 1 INH; Start 09/15/16 at 09:00 Albuterol (Ventolin Hfa) 2 puff Q4H PRN INH RESP DISTRESS/SOB/ETC......; Start 09/15/16 at 09:30 Amlodipine Besylate (Norvasc) 10 mg DAILY PO Last administered on 10/01/16 09: 13; Admin Dose 10 MG; Start 09/16/16 at 09:00 Isosorbide Mononitrate (Imdur) 30 mg DAILY PO Last administered on 10/01/16 09: 12; Admin Dose 30 MG; Start 09/16/16 at 09:00 Metoprolol Succinate (Toprol Xl) 25 mg DAILY PO Last administered on 10/01/16 09:14; Admin Dose 25 MG; Start 09/16/16 at 09:00 Folic Acid (Folic Acid) 1 mg DAILY PO Last administered on 10/01/16 09:13; Admin Dose 1 MG; Start 09/16/16 at 09:00 Cyanocobalamin (Vitamin B12) 1,000 mcg DAILY PO Last administered on 10/01/16 09:13; Admin Dose 1,000 MCG; Start 09/16/16 at 09:00 Lorazepam (Ativan) 1 mg Q1H PRN IV CONTROL WITHDRAWAL SYMPTOMS Last administered on 09/29/16 00:57; Admin Dose 1 MG; Start 09/15/16 at 19:30 Nicotine 1 patch 1 patch DAILY TRANSDERM Last administered on 10/01/16 09:14; Admin Dose 1 PATCH; Start 09/16/16 at 09:00 Multivitamins/ Thiamine HCl/ Folic Acid/Sodium Chloride (Mvi-12 Adult/ Vitamin B1/Folic Acid/NS) 1,015.2 ml @ 125 mls/ hr DAILY@09 IVPB Last administered on 10/01/16 09:14; Admin Dose 125 MLS/HR; Start 09/24/16 at 09:00 Chlordiazepoxide (Librium) 10 mg BID PO Last administered on 10/01/16 09:12; Admin Dose 10 MG; Start 09/28/16 at 21:00 NITIN CORTEZ Oct 01, 2016 10:12
--- NOTE | 2016-10-01 13:57 | RADRPT ---
PROCEDURE: CT Chest without contrast. CLINICAL INDICATION: Calcified granuloma TECHNIQUE: CT scan of the chest without contrast was performed on a multidetector high-resolution CT scanner. Coronal and sagittal reformatted images were obtained from the axial source images. The total exam CTDI equals 10 mGy and the total exam DLP equals 356 mGy-cm. COMPARISON: Chest x-ray 09/29/2016 FINDINGS: Right lower lobe calcified granuloma. Small cystic cavity of the left upper lobe measuring 15 mm. B ilateral paraseptal emphysematous changes at the lung apices. Patchy peribronchial ground-glass is identified in the right lower lobe. No mediastinal or hilar lymphadenopathy. No pleural or pericardial effusion. Coronary arterial and aortic atherosclerosis. Bilateral nonobstructing renal stones. Tiny splenic calcifications. Degenerative changes to the thoracic spine are seen. IMPRESSION: Right lower lobe calcified granuloma with scattered punctate splenic calcifications are likely a seq uela of prior granulomatous disease. Patchy peribronchial ground-glass is identified in the right lower lobe that may be due to infection or inflammation. Recommend repeat imaging after treatment to confirm resolution. Bilateral nonobstructing renal stones. No pleural or pericardial effusion. Coronary arterial and aortic atherosclerosis. RPTAT: AA .Macario Muir MD, Date Time Electronically viewed and signed by .Macario Muir MD, on 10/01/2016 13:56 .T/
[2016-10-01 19:51] VITALS: BP 147/81; RESP 16
[2016-10-01] MEDS: ATORVASTATIN 10 MG TAB PO SCH (20:20)
[2016-10-01] MEDS: LORAZEPAM 2 MG INJ IV PRN (20:21)
[2016-10-02] MEDS: morphine 2 MG INJ IV PRN (03:52)
[2016-10-02 05:53] LABS: POTASSIUM 3.8 mmol/L (3.5-5.1)
[2016-10-02 05:55] LABS: BASOPHILS % 0.6 % (0.0-2.0); CREATININE 0.84 mg/dl (0.61-1.24); EOSINOPHILS # 0.1 10^3/ul (0.0-0.5); EOSINOPHILS % 1.1 % (0.0-7.0); HEMATOCRIT 36.1 % (42.0-52.0); HEMOGLOBIN 12.3 g/dl (14.0-18.0); LYMPHOCYTES # 1.4 10^3/ul (0.8-2.9); LYMPHOCYTES % 20.6 % (15.0-51.0); MEAN CORPUSCULAR HEMOGLOBIN 34.2 pg (29.0-33.0); MEAN CORPUSCULAR HGB CONC 34.1 g/dl (32.0-37.0); MEAN CORPUSCULAR VOLUME 100.1 fl (82.0-101.0); MEAN PLATELET VOLUME 8.4 fl (7.4-10.4); MONOCYTE # 0.6 10^3/ul (0.3-0.9); MONOCYTES % 9.1 % (0.0-11.0); NEUTROPHIL # 4.8 10^3/ul (1.6-7.5); NEUTROPHILS % 68.6 % (39.0-77.0); PLATELET COUNT 263 10^3/UL (140-440); RED BLOOD COUNT 3.61 10^6/ul (4.70-6.10); RED CELL DISTRIBUTION WIDTH 14.8 % (11.5-14.5)
[2016-10-02 05:56] LABS: CALCIUM 9.4 mg/dl (8.4-10.2)
[2016-10-02 06:00] LABS: CONDITION 1; LH ANALYZER COMMENTS 1
[2016-10-02 07:55] VITALS: BP 131/99; RESP 20
[2016-10-02] MEDS: CYANOCOBALAMIN 500 MCG TAB PO SCH (09:03)
[2016-10-02] MEDS: FAMOTIDINE 20 MG TAB PO SCH (09:03)
[2016-10-02] MEDS: FOLIC ACID 1 MG TAB PO SCH (09:03)
[2016-10-02] MEDS: SALMETEROL/FLUTICASONE 250/50 INHA INH SCH (09:03)
[2016-10-02] MEDS: NICOTINE (21 MG/24 HR) PATCH TRANSDERM SCH (09:05)
[2016-10-02] MEDS: AMLODIPINE 10 MG TAB PO SCH (09:06)
[2016-10-02] MEDS: METOPROLOL (XL) 25 MG TAB PO SCH (09:06)
[2016-10-02] MEDS: ISOSORBIDE MONONITRATE(SR)30 MG TAB PO SCH (09:07)
[2016-10-02] MEDS: CHLORDIAZEPOXIDE 5 MG CAP PO SCH (09:11)
[2016-10-02] MEDS: HEPARIN 5,000 UNIT/0.5 ML SYG SC SCH (09:16)
[2016-10-02] MEDS: LORAZEPAM 2 MG INJ IV PRN (10:06)
--- NOTE | 2016-10-02 10:24 | PDOCDIS ---
Discharge Instructions CONDITION Patient Condition: Stable HOME CARE INSTRUCTIONS: Special Diet: cardiac diet , low cholesterol , lo fat NITIN CORTEZ Oct 02, 2016 10:23
--- NOTE | 2016-10-02 11:02 | DS ---
DATE OF ADMISSION: 09/14/2016 DATE OF DISCHARGE: 10/02/2016 This is a 70-year-old male originally admitted on 09/14/2016, being discharged to a snf facility on 10/02/2016. The patient initially came in with syncope. He was also found with low blo od sugars as well. He was admitted and seen initially by the endocrinology team. His head CT showe d no acute changes; however, he was found with elevated blood alcohol levels and was found to be in severe alcohol withdrawal, so he was admitted, placed on a banana bag, which included thiamine, mult ivitamins, and also Librium, and treated for his withdrawal symptoms. The patient slowly recovered, but it did take a while. Eventually he was able to work with physical therapy. He was also given DuoNebs as needed for COPD as well. His blood pressure was controlled with the current medications and his tremors and overall withdrawal symptoms slowly improved. He was also treated for right eye conjunctivitis with Cipro drops in the eyes, which improved. His labs were stable on the day of dis charge. He was able to work with physical therapy, ambulate and tolerate a p.o. diet. He still had some tremors on the day of discharge. CT of the chest did show a right lower lobe calcified granul pato with scattered punctate splenic calcifications, likely a sequelae of prior granulomatous disease . Because the patient is clinically improved, he will be discharged to a snf facility t john in improved condition. DISCHARGE MEDICATIONS: He will be sent with: 1. Tylenol 650 q.6 p.r.n. 2. DuoNebs inhaled q.4h. p.r.n. 3. Ventolin HFA 2 puffs inhaled q.4h. p.r.n. 4. Norvasc 10 mg daily. 5. Lipitor 5 mg daily. 6. Librium 10 mg p.o. b.i.d. for 5 more days. 7. Vitamin B12 1000 mg daily. 8. Colace 100 mg q.12 p.r.n. 9. Pepcid 20 mg q.12. 10. Folic acid 1 mg daily. 11. Heparin 5000 units subcutaneous q.12. 12. Hydralazine 10 mg IV q.6 p.r.n. 13. Imdur 30 mg daily. 14. Ativan 1 mg IV q.1h. p.r.n. 15. Milk of Magnesia 30 mL daily p.r.n. 16. Metoprolol 25 mg daily. 17. Morphine 2 mg IV q.4 p.r.n. 18. Banana bag. 19. Nicotine patch 21 mg transdermal daily. 20. Nitroglycerin 1 tab every 5 minutes p.r.n. 21. Zofran 4 mg IV q.6 p.r.n. 22. Advair 250/50 inhaled b.i.d. 23. Fleets Enema per rectal daily p.r.n. Again, he will need to follow with his primary care doctor in the next 1-2 weeks. FINAL DIAGNOSES: 1. Syncope. Ruled out for acute stroke. 2. Low blood sugar. Thought to be sequelae of the patient's withdrawal from alcohol. 3. Severe alcohol intoxication. Status post withdrawal and treatment for withdrawal. 4. History of chronic obstructive pulmonary disease. 5. Coronary artery disease. 6. Gastroesophageal reflux disease. 7. Anemia 8. High cholesterol. Time spent on discharging the patient was 45 minutes. Dictated By: NITIN ALLRDE Conf#: [id number] DID#: [id number]
--- NOTE | 2016-10-02 12:16 | RADRPT ---
Vent Rate: 83 bpm RR Interval: 0 msec CO Interval: 126 msec QRS Duration: 98 msec QT Interval: 396 msec QTC Interval: 465 msec P-R-T [place]: 68 - 55 - 65 degrees Normal sinus rhythm Nonspecific T wave abnormality Prolonged QT Abnormal ECG Electronically Signed By: Alexi Salmeron [id number]
== END 2016-10-02 15:05 | DRG 897 ==
LOC: E/R 11:28 → TEL 15:19 → MS2 09-20 22:20
PROVIDERS: ADMIT Family Medicine; ATTEND Family Medicine
DX: F10.239 Alcohol dependence with withdrawal, unspecified (principal); J44.9 Chronic obstructive pulmonary disease, unspecified; D64.9 Anemia, unspecified; E51.2 Wernicke's encephalopathy; F10.229 Alcohol dependence with intoxication, unspecified; Z78.1 Physical restraint status; E16.2 Hypoglycemia, unspecified; I10 Essential (primary) hypertension; Y90.3 Blood alcohol level of 60-79 mg/100 ml; Z72.0 Tobacco use; E87.6 Hypokalemia; I25.10 Atherosclerotic heart disease of native coronary artery without angina pectoris; K21.9 Gastro-esophageal reflux disease without esophagitis; H10.9 Unspecified conjunctivitis; I95.2 Hypotension due to drugs; T40.2X5A Adverse effect of other opioids, initial encounter; Y92.230 Patient room in hospital as the place of occurrence of the external cause; R09.02 Hypoxemia; R55 Syncope and collapse
CPT/HCPCS: 36415; 36600; 70450; 70551; 71010; 71250; 80048; 80053; 80061; 81003; 82140; 82533; 82607; 82746; 82803; 82962; 83036; 83735; 84100; 84439; 84443; 84484; 85025; 85610; 85730; 86592; 86803; 87040; 87086; 87340; 92610; 93005; 93306; 94640; 94664; 95819; 96372; 96374; 96375; 97001; 97003; 97110; 97116; 97164; 97530; G0478; G0479; J0360; J2060; J2270; J2310; J3411; J3475; J3480; J7030; J7050

== ENCOUNTER 2019-02-11 18:52 | Inpatient (IN) | payer BC, MEDICARE ==
[~2019-02-11] VITALS: Ht 160 cm; Wt 60.4 kg
[~2019-02-11 18:52] MED LIST changes: -ASP81 PO; -ATOR80TA75 PO; -ISOS30TA5 PO; +ISOS30TA67 PO; -PROP40TA4 PO; +SIMV10TA PO; -SIMV10TA76 PO
[2019-02-11] MEDS ORDERED: ASPIRIN 325 MG TAB PO STA (18:54)
[2019-02-11] MEDS ORDERED: NITROGLYCERIN (SL) 0.4 MG TAB SL PRN (19:00)
[2019-02-11] MEDS ORDERED: ACETAMINOPHEN 500 MG TAB PO STA (19:32)
--- NOTE | 2019-02-11 19:42 | ERD ---
ER Documentation Chief Complaint Chief Complaint bib ra from home for cp since 4 pm, HPI 73-year-old gentleman who is a limited historian. He states that he drinks regularly he was drinking all day today. He states that around 4 PM he had substernal chest pressure that was 5 out of 10. Patient denies any nausea or vomiting, no mid back pain, no diarrhea. He denies cardiac history, no exertional symptoms, pain is still present. ROS All systems reviewed and are negative except as per history of present illness. Medications Home Meds Active Scripts Isosorbide Mononitrate* (Isosorbide Mononitrate*) 30 Mg Tab.er.24h, 30 MG PO DAILY for 30 Days, 2 Refills Prov:KENIA SINGLETARY M. 06/19/16 Amlodipine Besylate* (Amlodipine Besylate*) 10 Mg Tablet, 10 MG PO DAILY for 30 Days, TAB 1 Refill Prov:CARLOS SINGLETARYDada . 06/19/16 Reported Medications Simvastatin* (Zocor*) 10 Mg Tablet, 10 MG PO HS, TAB 07/10/15 Budesonide-Formoterol Fumarate* (Symbicort*) 160-4.5 Hfa.aer.ad, 2 PUFF IH BID, INH 07/10/15 Albuterol Sulfate* (Albuterol Sulfate* HFA) 8.5 Gm Hfa.aer.ad, 2 PUFF IH Q4H PRN for WHEEZING AND SOB, EA 07/10/15 Omeprazole* (Omeprazole*) 20 Mg Capsule.dr, 20 MG PO DAILY, CAP 07/10/15 Allergies Allergies: Coded Allergies: Penicillins (Verified Allergy, Severe, ANAPHYLAXIS, 09/14/16) PMhx/Soc History of Surgery: Yes (appendectomy, hemorrhoidectomy) Anesthesia Reaction: No Hx Neurological Disorder: No Hx Respiratory Disorders: Yes (COPD) Hx Cardiac Disorders: Yes (HTN) Hx Psychiatric Problems: No Hx Miscellaneous Medical Probl: Yes (see notes) Hx Alcohol Use: Yes Hx Substance Use: No Hx Tobacco Use: Yes Smoking Status: Current every day smoker FmHx Family History: No diabetes Physical Exam Vitals Vital Signs Date Temp Pulse Resp B/P (MAP) Pulse Ox O2 O2 Flow FiO2 Time Delivery Rate 02/11/19 Nasal 19:04 Cannula 02/11/19 98.1 122 19 185/92 100 19:04 (123) Physical Exam General: Well developed, well nourished, no acute distress Head: Normocephalic, atraumatic. Eyes: Pupils equally reactive, EOM intact ENT: Moist mucous membranes Neck: Supple, no lymphadenopathy Respiratory: Lungs clear bilaterally, no distress Cardiovascular: RRR, no murmurs, rubs, or gallops Abdominal: Soft, non-tender, non-distended, no peritoneal signs : Deferred MSK: No edema, no unilateral swelling, 5/5 strength Neurologic: Alert and oriented, moving all extremities, normal speech, no focal weakness, no cerebellar signs Skin: No rash Psych: Normal mood Result Diagram: 02/11/19191802/11/191918 Results 24 hrs Laboratory Tests Test 02/11/19 19:19 White Blood Count 6.7 10^3/ul Red Blood Count 4.45 10^6/ul Hemoglobin 15.0 g/dl Hematocrit 45.1 % Mean Corpuscular Volume 101.3 fl Mean Corpuscular Hemoglobin 33.7 pg Mean Corpuscular Hemoglobin Concent 33.3 g/dl Red Cell Distribution Width 12.9 % Platelet Count 123 10^3/UL Mean Platelet Volume 9.7 fl Immature Granulocytes % 0.400 % Neutrophils % 63.7 % Lymphocytes % 27.4 % Monocytes % 7.2 % Eosinophils % 0.3 % Basophils % 1.0 % Nucleated Red Blood Cells % 0.0 /100WBC Immature Granulocytes # 0.030 10^3/ul Neutrophils # 4.3 10^3/ul Lymphocytes # 1.8 10^3/ul Monocytes # 0.5 10^3/ul Eosinophils # 0.0 10^3/ul Basophils # 0.1 10^3/ul Nucleated Red Blood Cells # 0.0 10^3/ul Sodium Level 145 mmol/L Potassium Level 4.4 mmol/L Chloride Level 104 mmol/L Carbon Dioxide Level 26 mmol/L Anion Gap 15 Blood Urea Nitrogen 21 mg/dl Creatinine 1.42 mg/dl Est Glomerular Filtrat Rate mL/min mL/min Glucose Level 81 mg/dl Calcium Level 8.4 mg/dl Total Bilirubin 0.9 mg/dl Direct Bilirubin 0.00 mg/dl Indirect Bilirubin 0.9 mg/dl Aspartate Amino Transf (AST/SGOT) 46 IU/L Alanine Aminotransferase (ALT/SGPT) 29 IU/L Alkaline Phosphatase 80 IU/L Troponin I 0.023 ng/ml Total Protein 7.4 g/dl Albumin 3.9 g/dl Globulin 3.50 g/dl Albumin/Globulin Ratio 1.11 Lipase 47 U/L Ethyl Alcohol Level 287.0 mg/dl Current Medications Medications Dose Sig/Wally Start Time Status Last (Trade) Ordered Route PRN Stop Time Admin Dose Reason Admin Aspirin 325 mg ONCE STAT 02/11/19 DC 02/11/19 (Aspirin) PO 18:54 19:27 02/11/19 18:56 1 tab Q5M UP TO 3 02/11/19 02/11/19 Nitroglycerin DOSES PRN 19:00 19:27 SL .CHEST (Nitroglyceri PAIN n (Sl Tab) 0.4 Mg) 1,000 mg ONCE STAT 02/11/19 DC 02/11/19 Acetaminophen PO 19:32 20:11 (Tylenol 02/11/19 19:33 Tab) Albuterol 5 mg ONCE STAT 02/11/19 DC (Proventil NEB 19:55 0.083% (Neb)) 02/11/19 19:56 Ipratropium 0.5 mg ONCE STAT 02/11/19 DC [place] NEB 19:55 (Atrovent 02/11/19 19:56 0.02% (Neb)) Ondansetron 4 mg ER BRIDGE 02/11/19 HCl (Zofran PRN IV 20:30 Inj) NAUSEA/VOMITI 02/12/19 20:29 NG 650 mg ER BRIDGE 02/11/19 Acetaminophen PRN PO 20:30 (Tylenol .MILD PAIN 02/12/19 20:29 Tab) 1-3 OR TEMP Procedures/MDM EKG, MONITORS, & DIAGNOSTIC IMAGING: EKG: I reviewed and interpreted a 12-lead EKG. Rhythm: Normal sinus rhythm ST Changes: No contiguous ST segment elevations T waves: No contiguous T wave inversions Impression: [No evidence of acute cardiac ischemia] Repeat EKG: EKG: I reviewed and interpreted a 12-lead EKG. Rhythm: Normal sinus rhythm ST Changes: No contiguous ST segment elevations T waves: No contiguous T wave inversions Impression: [No evidence of acute cardiac ischemia] Chest x-ray: I reviewed and interpreted a 1 view of the chest Mediastinum: No enlargement Cardiac silhouette: No cardiomegaly Airspace: Clear lung richardson bilaterally without evidence of pneumothorax Bones: No evidence of fracture PROCEDURES: [None] LAB INTERPRETATION: * Negative troponin, minor renal insufficiency MEDICAL DECISION MAKING: The patient's history, physical exam and clinical presentation is concerning for possible cardiogenic etiology and acute coronary syndrome. Based on the patient's clinical exam and history and risk factors, I have a much lower clinical concern for pulmonary embolism, acute aortic dissection, pneumothorax, pneumonia, cardiac tamponade HEART Score: 4 MACE Rate: 16.6% Shared Decision Making: We had a conversation regarding risk stratification, MACE rate, and the risks, benefits, alternatives of disposition planning options. Disposition planning: Admit for rule out ER COURSE: * Aspirin and nitroglycerin provided. * Chest pain improved. CONSULTATION: [None] DISPOSITION PLAN: Telemetry admission for management of chest pain to rule out acute coronary syndrome, serial enzymes, risk stratification and consideration of provocative testing CONSULTATION: Accepting care team and consultations: I discussed the current laboratory data, diagnostic imaging and emergency care provided. Admitting team: Dr. Zambrano Admitting team indication: Insurance directed Departure Diagnosis: Primary Impression: Chest pain Chest pain type: unspecified Qualified Codes: R07.9 - Chest pain, unspecified Additional Impressions: Alcohol abuse Renal insufficiency Condition: Stable DOMINICK VERDIN MD February 11, 2019 19:42
[2019-02-11] MEDS ORDERED: ALBUTEROL 0.083% (NEB) 2.5 MG/3 ML AMP NEB STA (19:55)
[2019-02-11] MEDS ORDERED: IPRATROPIUM (NEB) 0.5 MG/2.5 ML AMP NEB STA (19:55)
--- NOTE | 2019-02-11 20:21 | HP ---
Date/Time of Note Date/Time of Note DATE: 02/11/19 TIME: 20:21 Assessment/Plan VTE Prophylaxis SCD applied (from Nsg): Yes Pharmacological prophylaxis: NA/contraindicated Pharm contraindication: low risk/ambulating Lines/Catheters IV Catheter Type (from Nrsg): [place] Assessment/Plan Hospital Course This is a 73-year-old male being admitted to the telemetry floor for: #1 chest pain: Rule out ACS versus anxiety versus alcohol related: We will trend cardiac enzymes x3, the first that was negative. Will check an echocardiogram. We will check hemoglobin A 1C, lipid panel, TSH. PRN morphine/nitro. #2 EtOH intoxication: Banana bag, MVI, thiamine, folate. PRN Ativan, Librium taper. Encourage cessation. #3 hypertension: Continue home meds #4 GERD: Continue PPI #5 COPD: Continue home inhalers #6 DVT GI prophylaxis: SCDs, Protonix Further treatment strategy will be implemented as per the clinical course. Result Diagram: 02/11/19191802/11/191918 Results 24hrs Laboratory Tests Test 02/11/19 19:19 White Blood Count 6.7 Red Blood Count 4.45 #L Hemoglobin 15.0 # Hematocrit 45.1 # Mean Corpuscular Volume 101.3 H Mean Corpuscular Hemoglobin 33.7 H Mean Corpuscular Hemoglobin Concent 33.3 Red Cell Distribution Width 12.9 Platelet Count 123 L Mean Platelet Volume 9.7 Immature Granulocytes % 0.400 Neutrophils % 63.7 Lymphocytes % 27.4 Monocytes % 7.2 Eosinophils % 0.3 Basophils % 1.0 Nucleated Red Blood Cells % 0.0 Immature Granulocytes # 0.030 Neutrophils # 4.3 Lymphocytes # 1.8 Monocytes # 0.5 Eosinophils # 0.0 Basophils # 0.1 Nucleated Red Blood Cells # 0.0 Sodium Level 145 H Potassium Level 4.4 Chloride Level 104 Carbon Dioxide Level 26 Anion Gap 15 H Blood Urea Nitrogen 21 H Creatinine 1.42 H Est Glomerular Filtrat Rate mL/min Glucose Level 81 Calcium Level 8.4 Total Bilirubin 0.9 Direct Bilirubin 0.00 Indirect Bilirubin 0.9 Aspartate Amino Transf (AST/SGOT) 46 Alanine Aminotransferase (ALT/SGPT) 29 Alkaline Phosphatase 80 Troponin I 0.023 Total Protein 7.4 Albumin 3.9 Globulin 3.50 H Albumin/Globulin Ratio 1.11 Lipase 47 Ethyl Alcohol Level 287.0 H HPI/ROS Admit Date/Time Admit Date/Time Hx of Present Illness Chief complaint: Chest pain This is a 73-year-old gentleman who is a poor historian. He originally reported to the emergency department that he had chest pain that began at approximately 4 PM yesterday, however to me he reported that at 11 AM he started experience left-sided chest x-ray. He stated the pain was sharp and was nonradiating. When asked further regarding his social history he does report that he drinks and that he has PTSD. He had been drinking for the last few days heavily. He denies any nausea vomiting or diarrhea. Denies any diaphoresis. He denies any suicidal, homicidal thoughts, denies any hallucinations or hearing voices. Allergies: Penicillin Medications: See DANYA MOLINA Const: As per HPI Eyes : No pain discharge or redness or change in visual acuity ENT: No pain, sore throat, congestion, congestion, dysphagia or discharge Respiratory: No shortness of breath, cough, sputum, wheezing, or pleuritic pain Cardiovascular: As per HPI GI : no change in appetite, abdominal pain, nausea, vomiting, diarrhea, constipation, or change in the color his stool Genitourinary: No dysuria, hematuria, flank pain , discharge or CVA tenderness Musculoskeletal: No joint pain, back pain, neck pain, restricted range of motion in neck or joints Skin: No rash, bruising or hives Neuro: No headache, dizziness, syncope, seizure, focal weakness Endocrine: No polyuria, polydipsia, temperature intolerance Psych: As per HPI PMH/Family/Social Past Medical History Hypertension, PTSD, COPD GERD Medications Current Medications Nitroglycerin (Nitroglycerin (Sl Tab) 0.4 Mg) 1 tab Q5M UP TO 3 DOSES PRN SL .CHEST PAIN Last administered on 02/11/19at 19:27; Admin Dose 1 TAB; Start 02/11/19 at 19:00 Ondansetron HCl (Zofran Inj) 4 mg ER BRIDGE PRN IV NAUSEA/VOMITING; Start at 20:30; Stop 02/12/19 at 20:29 Acetaminophen (Tylenol Tab) 650 mg ER BRIDGE PRN PO .MILD PAIN 1-3 OR TEMP; Start 02/11/19 at 20:30; Stop 02/12/19 at 20:29 Multivitamins 10 ml/Thiamine HCl 100 mg/Folic Acid 1 mg/Sodium Chloride 1,011.2 ml @ 125 mls/ hr DAILY@09 IVPB ; Start 02/11/19 at 20:30; Stop 02/12/19 at 04:36; Status UNV Multivitamins Therapeutic (Theragran) 1 tab DAILY PO ; Start 02/12/19 at 09:00; Status UNV Thiamine HCl (Vitamin B1) 200 mg DAILY PO ; Start 02/12/19 at 09:00; Stop 02/17/19 at 08:59; Status UNV Folic Acid (Folic Acid) 1 mg DAILY PO ; Start 02/12/19 at 09:00; Status UNV Albuterol (Ventolin Hfa) 2 puff Q4H PRN INH WHEEZING AND SOB; Start 02/11/19 at 20:30; Status UNV Amlodipine Besylate (Norvasc) 10 mg DAILY PO ; Start 02/12/19 at 09:00; Status UNV Isosorbide Mononitrate (Imdur) 30 mg DAILY PO ; Start 02/12/19 at 09:00; Status UNV Miscellaneous Information 2 puff BID IH ; Start 02/11/19 at 21:00; Status UNV Miscellaneous Information 20 mg DAILY PO ; Start 02/12/19 at 09:00; Status UNV Miscellaneous Information 10 mg HS PO ; Start 02/11/19 at 21:00; Status UNV Sodium Chloride 500 ml @ 500 mls/hr Q1H ONCE IV ; Start 02/11/19 at 20:30; Stop 02/11/19 at 21:29; Status UNV Coded Allergies: Penicillins (Verified Allergy, Severe, ANAPHYLAXIS, 09/14/16) Past Surgical History Past Surgical Hx: no surgical history Family History Significant Family History: COPD, other Social History Alcohol Use: heavy Smoking Status: Unknown if ever smoked Drug Use: none Exam/Review of Systems Vital Signs Vitals Vital Signs Date Temp Pulse Resp B/P (MAP) Pulse Ox O2 O2 Flow FiO2 Time Delivery Rate 02/11/19 Nasal 19:04 Cannula 02/11/19 98.1 122 19 185/92 100 19:04 (123) Exam Exam General: Patient is currently lying in bed in no acute distress he does not appear to be anxious or tremulous HEENT: Atraumatic, normocephalic. The pupils are equal, round and reactive. Extraocular motor are intact Neck: Supple with full range of motion. No rigidity or meningismus Chest: Nontender Lungs: Clear to auscultation bilaterally no crackles rales or wheezing Heart: Normal S1-S2, Regular rhythm and rate. No murmur, S3, or S4 Abdomen: Soft , nontender, nondistended , bowel sounds are present. No guarding no rebound tenderness , No masses or organomegaly. No costovertebral temporal angle mass Extremities: Normal to inspection, no edema no cyanosis Neurologic: Normal mental status, speech normal, cranial nerves II through XII are intact, motor and sensory are intact, Psych: He does not appear to be anxious or tremulous or diaphoretic Additional Comments PROCEDURE: XR Chest. CLINICAL INDICATION: Chest pain TECHNIQUE: A single AP view of the chest was obtained. COMPARISON: CT CHEST 10/01/2016; CR CHEST 09/29/2016; CR CHEST 09/14/2016; CR CHEST 06/17/2016 FINDINGS: No focal airspace opacification, pleural effusion or pneumothorax is seen. The cardiomediastinal silhouette is within normal limits for size. Calcifications are seen within the aortic arch. The osseous structures are unremarkable. IMPRESSION: 1. No radiographic evidence of acute cardiopulmonary disease. No significant interval change. 2. Aortic atherosclerosis. RPTAT: HH .Bita Hobbs MD, Date Time Electronically viewed and signed by .Bita Hobbs MD, on 02/11/2019 19:44 .G/ CC: DOMINICK VERDIN MD [id number] CHRISTEN LYNN February 11, 2019 20:21
[2019-02-11] MEDS ORDERED: MULTIVITAMINS 10 ML, THIAMINE 100 MG, FOLIC ACID 1 MG in SOD CHLORIDE 0.9% 1,000 ML IVPB SCH (20:30)
[2019-02-11] MEDS ORDERED: NACL 0.9% 3 ML SYG IV SCH (20:30)
[2019-02-11] MEDS ORDERED: morphine 2 MG INJ IV PRN (20:30)
[2019-02-11] MEDS ORDERED: BISACODYL (EC) 5 MG TAB PO PRN (20:30)
[2019-02-11] MEDS ORDERED: SOD CHLORIDE 0.9% 500 ML IV ONE (20:30)
[2019-02-11] MEDS ORDERED: ACETAMINOPHEN 325 MG TAB PO PRN ×2 (20:30)
[2019-02-11] MEDS ORDERED: ONDANSETRON 4 MG INJ IV PRN ×2 (20:30)
[2019-02-11] MEDS ORDERED: DOCUSATE SODIUM 100 MG CAP PO PRN (20:30)
[2019-02-11] MEDS ORDERED: NON-FORMULARY/PATIENT OWN MED (Budesonide-Formoterol Fumarate* (Symbicort*) 2 PUFF) IH SCH (21:00)
[2019-02-11] MEDS ORDERED: NON-FORMULARY/PATIENT OWN MED (Simvastatin* (Zocor*) 10 MG) PO SCH (21:00)
[2019-02-11 21:55] VITALS: BP 168/89; PULSE 99; RESP 20; Ht 160 cm; Wt 60.4 kg
[2019-02-11 22:06] VITALS: PULSE 105
[2019-02-11] MEDS ORDERED: ALBUTEROL HFA 8 GM INHALER INH PRN (22:30)
[2019-02-11] MEDS: ATORVASTATIN 10 MG TAB PO SCH (22:57)
[2019-02-12] VITALS (13 sets, daily range): BP systolic 148–179; BP diastolic 78–101; PULSE 88–109; RESP 16–18
[2019-02-12] MEDS: HEPARIN 5,000 UNIT/1 ML VIAL SC SCH ×4 (01:17→22:15)
[2019-02-12] MEDS ORDERED: hydrALAzine 20 MG INJ IV PRN (05:00)
[2019-02-12] MEDS ORDERED: hydrALAzine (1 MG/ML) IV SYG IV PRN (05:00)
[2019-02-12] MEDS: CHLORDIAZEPOXIDE 25 MG CAP PO SCH ×3 (05:02→13:10)
[2019-02-12] MEDS: PANTOPRAZOLE (EC) 40 MG TAB PO SCH (05:51)
[2019-02-12] MEDS: LORAZEPAM 2 MG INJ IV PRN ×2 (05:51→18:25)
[2019-02-12] MEDS: ISOSORBIDE MONONITRATE(SR)30 MG TAB PO SCH (08:33)
[2019-02-12] MEDS: THIAMINE 100 MG TAB PO SCH (08:34)
[2019-02-12] MEDS: AMLODIPINE 10 MG TAB PO SCH (08:34)
[2019-02-12] MEDS: MULTIVITAMINS THERAPEUTIC TAB PO SCH (08:34)
[2019-02-12] MEDS: FOLIC ACID 1 MG TAB PO SCH (08:34)
[2019-02-12] MEDS ORDERED: NON-FORMULARY/PATIENT OWN MED (Omeprazole* 20 MG) PO SCH (09:00)
[2019-02-12] MEDS: ARFORMOTEROL TARTRATE 15MCG/2 ML AMP INH SCH ×2 (11:33→20:43)
[2019-02-12] MEDS: BUDESONIDE (NEB) 0.5MG/2ML AMP INH SCH ×2 (11:33→20:43)
--- NOTE | 2019-02-12 11:55 | RADRPT ---
Vent Rate: 108 bpm RR Interval: 0 msec [place] Interval: 124 msec QRS Duration: 78 msec QT Interval: 332 msec QTC Interval: 444 msec P-R-T [place]: 69 - 52 - 64 degrees Sinus tachycardia Otherwise normal ECG Electronically Signed By: *[facility]
--- NOTE | 2019-02-12 11:55 | RADRPT ---
Vent Rate: 100 bpm RR Interval: 0 msec [place] Interval: 120 msec QRS Duration: 78 msec QT Interval: 352 msec QTC Interval: 454 msec P-R-T [place]: 74 - 58 - 74 degrees Sinus rhythm with occasional premature ventricular complexes Otherwise normal ECG Electronically Signed By: *[facility]
--- NOTE | 2019-02-12 13:01 | RADRPT ---
Echocardiogram Report Patient Name: KERRIE SCHAEFERPatient ID: [id number] : 1945 (73y 3m)Study Date: 02/12/2019 7:23:11 AM Gender: Pachecocession #: [id number] Tech: Ta Garner [facility] Location: 522 Ref.Physician: CHRISTEN LYNN Height(Cm): BSA: Weight(Kg): Quality: AdequateOrder Physician: CHRISTEN LYNN Account #: Procedures: Echocardiographic Report: Transthoracic echocardiogram with complete 2D, M-Mode, and doppler examination. Indications: Chest Pain. Measurements: 2D/M Mode Doppler Measurement Value Normal Range Measurement Value Normal Range LVIDd 2D 3.8 [ 4.2 - 5.8 ] cm AV Peak Rik 1.4 [ 100.0 - 170.0 ] cm/sec LVIDs 2D 2.5 [ 2.5 - 4.0 ] cm AV Peak PG 8.0 [ 2.0 - 9.0 ] mmHg LVPWd 2D 1.2 [ 0.6 - 1.0 ] cm AI Peak PG 24.0 mmHg IVSd 2D 1.3 [ 0.6 - 1.0 ] cm AI Peak Rik 2.5 cm/sec AoR Diam 2D 3.2 [ 2.6 - 3.4 ] cm AI PHT 423.0 msec EDV 2D 63.1 [ 62.0 - 150.0 ] ml LVOT Peak Rik 1.2 [ 70.0 - 110.0 ] cm/sec ESV 2D 21.4 [ 21.0 - 61.0 ] ml LVOT Peak PG 5.0 [ 2.0 - 6.0 ] mmHg EF 2D 66.1 [ 52.0 - 72.0 ] percent MV E Peak Rik 0.7 [ 60.0 - 130.0 ] cm/sec LA Dimen 2D 3.0 [ 3.0 - 4.0 ] cm MV A Peak Rik 0.9 [ 100.0 - 120.0 ] cm/sec MV E/A 0.7 [ 0.8 - 1.5 ] ratio MV Decel Time 183 [ 104 - 258 ] msec Lat E` Rik 0.1 [ 10.0 - 15.0 ] cm/sec Lateral E/E` 7.4 [ 1.0 - 2.0 ] ratio MV E/A 0.7 [ 0.8 - 1.5 ] ratio TR Peak Rik 2.8 [ 100.0 - 280.0 ] cm/sec TR Peak PG 31.0 mmHg RVSP 34.0 [ 10.0 - 36.0 ] mmHg RA Pressure 3.0 mmHg Findings: Left Ventricle: Normal left ventricular systolic function. Normal left ventricular cavity size. Mild concentric left ventricular hypertrophy. Ejection fraction is visually estimated at 60 %. Tissue Doppler/Mitral Doppler indices are consistent with impaired relaxation (Stage I diastolic dysfunction). Right Ventricle: Normal right ventricular size. Normal right ventricular systolic function. Left Atrium: The left atrium is normal in size. Right Atrium: The right atrium is normal in size. Mitral Valve: Normal appearance and function of the mitral valve with trace physiologic regurgitation. Aortic Valve: No hemodynamically significant aortic stenosis by doppler. Aortic cusps appear mildly calcified. Mild aortic valve regurgitation. Tricuspid Valve: Normal appearance of the tricuspid valve. Estimated peak PA systolic pressure 34 mmHg. There is trace tricuspid regurgitation. Pulmonic Valve: Pulmonic valve not well visualized. Pericardium: Normal pericardium with no significant pericardial effusion. Aorta: Normal aortic root. IVC: Normal size and normal respiratory collapse consistent with normal right atrial pressure. Conclusions: Normal left ventricular systolic function. Normal left ventricular cavity size. Mild concentric left ventricular hypertrophy. Ejection fraction is visually estimated at 60 %. Tissue Doppler/Mitral Doppler indices are consistent with impaired relaxation (Stage I diastolic dysfunction). Electronically Signed By: Noel aWlker 2019-02-12 13:00:12 PDT
--- NOTE | 2019-02-12 13:23 | PN ---
Date/Time of Note Date/Time of Note DATE: 02/12/19 TIME: 13:21 Assessment/Plan VTE Prophylaxis Risk score (from Ns)>0 risk: 2 SCD applied (from Ns): Yes Pharmacological prophylaxis: heparin Lines/Catheters IV [facility]from [facility] Saline Lock Assessment/Plan Hospital Course 73 yo male with etoh use d/o, COPD presnets with alcohol withdrawal syndrome, mild COPD Alcholol wihtdrawal syndrome: - Librium PRN - Banana bag COPD: - Bronchodilators Hypertension controlled Discharge in coming day(s) if symptoms controlled Result Diagram: 02/11/19191802/11/191918 Results 24hrs Laboratory Tests Test 02/11/19 19:19 02/12/19 01:12 02/12/19 05:46 02/12/19 11:11 White Blood Count 6.7 Red Blood Count 4.45 #L Hemoglobin 15.0 # Hematocrit 45.1 # Mean Corpuscular 101.3 H Volume Mean Corpuscular 33.7 H Hemoglobin Mean Corpuscular 33.3 Hemoglobin Concent Red Cell 12.9 Distribution Width Platelet Count 123 L Mean Platelet Volume 9.7 Immature 0.400 Granulocytes % Neutrophils % 63.7 Lymphocytes % 27.4 Monocytes % 7.2 Eosinophils % 0.3 Basophils % 1.0 Nucleated Red Blood 0.0 Cells % Immature 0.030 Granulocytes # Neutrophils # 4.3 Lymphocytes # 1.8 Monocytes # 0.5 Eosinophils # 0.0 Basophils # 0.1 Nucleated Red Blood 0.0 Cells # Sodium Level 145 H Potassium Level 4.4 Chloride Level 104 Carbon Dioxide Level 26 Anion Gap 15 H Blood Urea Nitrogen 21 H Creatinine 1.42 H Est Glomerular Filtrat Rate mL/min Glucose Level 81 Calcium Level 8.4 Total Bilirubin 0.9 Direct Bilirubin 0.00 Indirect Bilirubin 0.9 Aspartate Amino 46 Transf (AST/SGOT) Alanine 29 Aminotransferase (AL T/SGPT) Alkaline Phosphatase 80 Troponin I 0.023 0.034 0.045 0.035 Total Protein 7.4 Albumin 3.9 Globulin 3.50 H Albumin/Globulin 1.11 Ratio Lipase 47 Ethyl Alcohol Level 287.0 H Creatine Kinase 210 H 205 H 178 Creatine Kinase 1.4 1.5 1.3 Index Creatinine Kinase MB 3.04 H 3.11 H 2.40 (Mass) Hemoglobin A1c 4.9 Magnesium Level 1.6 L Triglycerides Level 150 H Cholesterol Level 192 LDL Cholesterol, 81 Calculated HDL Cholesterol 81 H Cholesterol/HDL 2.3 Ratio Vitamin B12 Level 480 Folate > 20.0 H Thyroid Stimulating 2.150 Hormone (TSH) Subjective 24 Hr Interval Summary Free Text/Dictation Resting comfortably Frequent cough Exam/Review of Systems Exam Vitals Vital Signs Date Temp Pulse Resp B/P (MAP) Pulse Ox O2 O2 Flow FiO2 Time Delivery Rate 02/12/19 109 12:00 02/12/19 97.7 16 150/90 98 Room Air 11:07 (110) 02/11/19 21 20:41 Intake and Output 02/11/19 02/11/19 02/12/19 1515:00 23:00 07:00 IntakeIntake Total 500 ml BalanceBalance 500 ml Constitutional: alert, oriented, well developed Psych: no complaints, nl mood/affect Head: normocephalic, atraumatic Eyes: nl conjunctiva, EOMI, nl lids, nl sclera, PERRL ENMT: nl external ears & nose, nl lips & teeth, nl nasal mucosa & septum Neck: supple, non-tender Respiratory: clear to auscultation, normal air movement Cardiovascular: regular rate and rhythm, nl pulses Gastrointestinal: soft, nl liver, spleen, non-tender Musculoskeletal: nl extremities to inspection, nl gait and stance Extremities: normal pulses Neurological: MAINTENANCE CRAFTSMAN II-XII intact, nl mental status, nl speech, nl strength Skin: nl turgor; No rash or lesions Lymph: nl lymph nodes Results Results 24hrs Laboratory Tests Test 02/11/19 19:19 02/12/19 01:12 02/12/19 05:46 02/12/19 11:11 White Blood Count 6.7 Red Blood Count 4.45 #L Hemoglobin 15.0 # Hematocrit 45.1 # Mean Corpuscular 101.3 H Volume Mean Corpuscular 33.7 H Hemoglobin Mean Corpuscular 33.3 Hemoglobin Concent Red Cell 12.9 Distribution Width Platelet Count 123 L Mean Platelet Volume 9.7 Immature 0.400 Granulocytes % Neutrophils % 63.7 Lymphocytes % 27.4 Monocytes % 7.2 Eosinophils % 0.3 Basophils % 1.0 Nucleated Red Blood 0.0 Cells % Immature 0.030 Granulocytes # Neutrophils # 4.3 Lymphocytes # 1.8 Monocytes # 0.5 Eosinophils # 0.0 Basophils # 0.1 Nucleated Red Blood 0.0 Cells # Sodium Level 145 H Potassium Level 4.4 Chloride Level 104 Carbon Dioxide Level 26 Anion Gap 15 H Blood Urea Nitrogen 21 H Creatinine 1.42 H Est Glomerular Filtrat Rate mL/min Glucose Level 81 Calcium Level 8.4 Total Bilirubin 0.9 Direct Bilirubin 0.00 Indirect Bilirubin 0.9 Aspartate Amino 46 Transf (AST/SGOT) Alanine 29 Aminotransferase (AL T/SGPT) Alkaline Phosphatase 80 Troponin I 0.023 0.034 0.045 0.035 Total Protein 7.4 Albumin 3.9 Globulin 3.50 H Albumin/Globulin 1.11 Ratio Lipase 47 Ethyl Alcohol Level 287.0 H Creatine Kinase 210 H 205 H 178 Creatine Kinase 1.4 1.5 1.3 Index Creatinine Kinase MB 3.04 H 3.11 H 2.40 (Mass) Hemoglobin A1c 4.9 Magnesium Level 1.6 L Triglycerides Level 150 H Cholesterol Level 192 LDL Cholesterol, 81 Calculated HDL Cholesterol 81 H Cholesterol/HDL 2.3 Ratio Vitamin B12 Level 480 Folate > 20.0 H Thyroid Stimulating 2.150 Hormone (TSH) Medications Medication Current Medications Nitroglycerin (Nitroglycerin (Sl Tab) 0.4 Mg) 1 tab Q5M UP TO 3 DOSES PRN SL .CHEST PAIN Last administered on 02/11/19 19:27; Admin Dose 1 TAB; Start 02/11/19 at 19:00 Ondansetron HCl (Zofran Inj) 4 mg ER BRIDGE PRN IV NAUSEA/VOMITING; Start 02/11/19 at 20:30; Stop 02/12/19 at 20:29 Acetaminophen (Tylenol Tab) 650 mg ER BRIDGE PRN PO .MILD PAIN 1-3 OR TEMP; Start 02/11/19 at 20:30; Stop 02/12/19 at 20:29 Multivitamins Therapeutic (Theragran) 1 tab DAILY PO Last administered on 02/12/19 08:34; Admin Dose 1 TAB; Start 02/12/19 at 09:00 Thiamine HCl (Vitamin B1) 200 mg DAILY PO Last administered on 02/12/19 08:34; Admin Dose 200 MG; Start 02/12/19 at 09:00; Stop 02/17/19 at 08:59 Folic Acid (Folic Acid) 1 mg DAILY PO Last administered on 02/12/19 08:34; Admin Dose 1 MG; Start 02/12/19 at 09:00 Albuterol (Ventolin Hfa) 2 puff Q4H RESP THERAPY PRN INH WHEEZING AND SOB; Start 02/11/19 at 22:30 Amlodipine Besylate (Norvasc) 10 mg DAILY PO Last administered on 02/12/19 08:34; Admin Dose 10 MG; Start 02/12/19 at 09:00 Isosorbide Mononitrate (Imdur) 30 mg DAILY PO Last administered on 02/12/19 08:33; Admin Dose 30 MG; Start 02/12/19 at 09:00 IV Flush (NS 3 ml) 3 ml PER PROTOCOL IV ; Start 02/11/19 at 20:30 Lorazepam (Ativan) 1 mg Q2H PRN IV CONTROL WITHDRAWAL SYMPTOMS Last administered on 02/12/19 05:51; Admin Dose 1 MG; Start 02/11/19 at 20:30 Ondansetron HCl (Zofran Inj) 4 mg Q6H PRN IV NAUSEA/VOMITING; Start 02/11/19 at 20:30 Nitroglycerin (Nitroglycerin (Sl Tab) 0.4 Mg) 1 tab Q5M PRN SL .CHEST PAIN; Start 02/11/19 at 20:30 Acetaminophen (Tylenol Tab) 650 mg Q6H PRN PO .PAIN 1-3 OR TEMP; Start 02/11/19 at 20:30 Morphine Sulfate (morphine) 2 mg Q4H PRN IV .PAIN 7-10 Last administered on 02/11/19at 22:57; Admin Dose 2 MG; Start 02/11/19 at 20:30 Docusate Sodium (Colace) 100 mg Q12H PRN PO .CONSTIPATION; Start 02/11/19 at 20:30 Bisacodyl (Dulcolax) 5 mg DAILY PRN PO .CONSTIPATION; Start 02/11/19 at 20:30 Heparin Sodium (Porcine) (Heparin (5000 Units/1ml)) 5,000 unit Q8 SC Last administered on 02/12/19 06:46; Admin Dose 5,000 UNIT; Start 02/11/19 at 22:00 Atorvastatin Calcium (Lipitor) 5 mg DAILY@21 PO Last administered on 02/11/19 22:57; Admin Dose 5 MG; Start 02/11/19 at 22:45 Pantoprazole (Protonix Tab) 40 mg DAILY@06 PO Last administered on 02/12/19 05:51; Admin Dose 40 MG; Start 02/12/19 at 06:00 Hydralazine HCl (Apresoline) 10 mg Q4H PRN IV SBP > 170mmHg Last administered on 02/12/19 05:04; Admin Dose 10 MG; Start 02/12/19 at 05:00 Arformoterol Tartrate (Brovana (Neb)) 2 ml BID RESP THERAPY INH Last administered on 02/12/19 11:33; Admin Dose 2 ML; Start 02/12/19 at 09:00 Budesonide (Pulmicort (Neb)) 0.5 mg BID RESP THERAPY INH Last administered on 02/12/19 11:33; Admin Dose 0.5 MG; Start 02/12/19 at 09:00 Chlordiazepoxide (Librium) 25 mg TID PRN PO withdrawal; Start 02/12/19 at 13:30; Status GUILHERME FARRELL MD February 12, 2019 13:23
[2019-02-12] MEDS ORDERED: CHLORDIAZEPOXIDE 25 MG CAP PO PRN (13:30)
[2019-02-12] MEDS: ATORVASTATIN 10 MG TAB PO SCH (20:21)
[2019-02-13] VITALS (13 sets, daily range): BP systolic 136–167; BP diastolic 57–96; PULSE 75–109; RESP 16–18
[2019-02-13] MEDS ORDERED: CHLORDIAZEPOXIDE 25 MG CAP PO SCH (02:30)
[2019-02-13] MEDS: PANTOPRAZOLE (EC) 40 MG TAB PO SCH (05:47)
[2019-02-13] MEDS: HEPARIN 5,000 UNIT/1 ML VIAL SC SCH ×3 (06:32→22:35)
[2019-02-13] MEDS: ARFORMOTEROL TARTRATE 15MCG/2 ML AMP INH SCH ×2 (09:02→21:08)
[2019-02-13] MEDS: BUDESONIDE (NEB) 0.5MG/2ML AMP INH SCH ×2 (09:03→21:20)
[2019-02-13] MEDS: THIAMINE 100 MG TAB PO SCH (09:21)
[2019-02-13] MEDS: MULTIVITAMINS THERAPEUTIC TAB PO SCH (09:21)
[2019-02-13] MEDS: ISOSORBIDE MONONITRATE(SR)30 MG TAB PO SCH (09:21)
[2019-02-13] MEDS: FOLIC ACID 1 MG TAB PO SCH (09:22)
[2019-02-13] MEDS: AMLODIPINE 10 MG TAB PO SCH (09:22)
[2019-02-13] MEDS: LORAZEPAM 2 MG INJ IV PRN ×3 (12:08→22:36)
[2019-02-13] MEDS: CHLORDIAZEPOXIDE 25 MG CAP PO SCH ×2 (14:12→20:37)
--- NOTE | 2019-02-13 14:35 | PN ---
Date/Time of Note Date/Time of Note DATE: 02/13/19 TIME: 14:34 Assessment/Plan VTE Prophylaxis Risk score (from Nsg)>0 risk: 4 SCD applied (from Nsg): Yes Pharmacological prophylaxis: other Lines/Catheters IV Catheter Type (from Nrsg): Saline Lock Urinary Cath still in place: No Assessment/Plan Hospital Course S: Patient still agitated at times, requiring Ativan and Librium. O: VS -see below PE: Gen: Lying in bed, slightly agitated Psych: no complaints, nl mood/affect Head: normocephalic, atraumatic Eyes: nl conjunctiva, EOMI, nl lids, nl sclera, PERRL ENMT: nl external ears & nose, nl lips & teeth, nl nasal mucosa & septum Neck: supple, non-tender Respiratory: clear to auscultation, normal air movement Cardiovascular: regular rate and rhythm, nl pulses Gastrointestinal: soft, nl liver, spleen, non-tender Musculoskeletal: nl extremities to inspection, nl gait and stance Neurological: GOLF COURSE ARCHITECT II-XII intact, nl mental status, nl speech, nl strength A/P: 73 yo male with etoh use d/o, COPD presnets with alcohol withdrawal syndrome, mild COPD. # Alcholol wihtdrawal syndrome: Symptoms still present, patient came in with very elevated blood alcohol level -Continue Ativan, Librium PRN and banana bag -We will get PT eval as # COPD: Stable - Bronchodilators as needed # Hypertension: controlled -Monitor, continue current medications Result Diagram: 02/11/19191802/11/191918 Results 24hrs Laboratory Tests Test 02/12/19 17:29 Creatine Kinase 160 Creatine Kinase Index 1.4 Creatinine Kinase MB (Mass) 2.29 Troponin I 0.026 Exam/Review of Systems Exam Vitals Vital Signs Date Temp Pulse Resp B/P (MAP) Pulse Ox O2 O2 Flow FiO2 Time Delivery Rate 02/13/19 98.0 98 18 149/57 98 12:09 (87) 02/12/19 21 20:43 02/12/19 Room Air 15:34 Intake and Output 02/12/19 02/12/19 02/13/19 1515:00 23:00 07:00 IntakeIntake Total 600 ml 300 ml OutputOutput Total 400 ml 3 ml BalanceBalance 200 ml 297 ml Results Results 24hrs Laboratory Tests Test 02/12/19 17:29 Creatine Kinase 160 Creatine Kinase Index 1.4 Creatinine Kinase MB (Mass) 2.29 Troponin I 0.026 Medications Medication Current Medications Nitroglycerin (Nitroglycerin (Sl Tab) 0.4 Mg) 1 tab Q5M UP TO 3 DOSES PRN SL .CHEST PAIN Last administered on 02/11/19 19:27; Admin Dose 1 TAB; Start 02/11/19 at 19:00 Multivitamins Therapeutic (Theragran) 1 tab DAILY PO Last administered on 02/13/19 09:21; Admin Dose 1 TAB; Start 02/12/19 at 09:00 Thiamine HCl (Vitamin B1) 200 mg DAILY PO Last administered on 02/13/19 09:21; Admin Dose 200 MG; Start 02/12/19 at 09:00; Stop 02/17/19 at 08:59 Folic Acid (Folic Acid) 1 mg DAILY PO Last administered on 02/13/19 09:22; Admin Dose 1 MG; Start 02/12/19 at 09:00 Albuterol (Ventolin Hfa) 2 puff Q4H RESP THERAPY PRN INH WHEEZING AND SOB; Start 02/11/19 at 22:30 Amlodipine Besylate (Norvasc) 10 mg DAILY PO Last administered on 02/13/19 09:22; Admin Dose 10 MG; Start 02/12/19 at 09:00 Isosorbide Mononitrate (Imdur) 30 mg DAILY PO Last administered on 02/13/19 09:21; Admin Dose 30 MG; Start 02/12/19 at 09:00 IV Flush (NS 3 ml) 3 ml PER PROTOCOL IV ; Start 02/11/19 at 20:30 Lorazepam (Ativan) 1 mg Q2H PRN IV CONTROL WITHDRAWAL SYMPTOMS Last administered on 02/13/19 12:08; Admin Dose 1 MG; Start 02/11/19 at 20:30 Ondansetron HCl (Zofran Inj) 4 mg Q6H PRN IV NAUSEA/VOMITING; Start 02/11/19 at 20:30 Nitroglycerin (Nitroglycerin (Sl Tab) 0.4 Mg) 1 tab Q5M PRN SL .CHEST PAIN; Start 02/11/19 at 20:30 Acetaminophen (Tylenol Tab) 650 mg Q6H PRN PO .PAIN 1-3 OR TEMP; Start 02/11/19 at 20:30 Morphine Sulfate (morphine) 2 mg Q4H PRN IV .PAIN 7-10 Last administered on 02/11/19at 22:57; Admin Dose 2 MG; Start 02/11/19 at 20:30 Docusate Sodium (Colace) 100 mg Q12H PRN PO .CONSTIPATION; Start 02/11/19 at 20:30 Bisacodyl (Dulcolax) 5 mg DAILY PRN PO .CONSTIPATION; Start 02/11/19 at 20:30 Heparin Sodium (Porcine) (Heparin (5000 Units/1ml)) 5,000 unit Q8 SC Last administered on 02/13/19 14:18; Admin Dose 5,000 UNIT; Start 02/11/19 at 22:00 Atorvastatin Calcium (Lipitor) 5 mg DAILY@21 PO Last administered on 02/12/19 20:21; Admin Dose 5 MG; Start 02/11/19 at 22:45 Pantoprazole (Protonix Tab) 40 mg DAILY@06 PO Last administered on 02/13/19 05:47; Admin Dose 40 MG; Start 02/12/19 at 06:00 Hydralazine HCl (Apresoline) 10 mg Q4H PRN IV SBP > 170mmHg Last administered on 02/12/19 05:04; Admin Dose 10 MG; Start 02/12/19 at 05:00 Arformoterol Tartrate (Brovana (Neb)) 2 ml BID RESP THERAPY INH Last administered on 02/13/19 09:02; Admin Dose 2 ML; Start 02/12/19 at 09:00 Budesonide (Pulmicort (Neb)) 0.5 mg BID RESP THERAPY INH Last administered on 02/13/19 09:03; Admin Dose 0.5 MG; Start 02/12/19 at 09:00 Chlordiazepoxide (Librium) 50 mg TID PO Last administered on 02/13/19 14:12; Admin Dose 50 MG; Start 02/13/19 at 13:00 Magnesium Sulfate/ Dextrose 100 ml @ 100 mls/hr ONCE ONCE IVPB ; Start 02/13/19 at 15:00; Stop 02/13/19 at 15:59; Status UNV Multivitamins 10 ml/Thiamine HCl 100 mg/Folic Acid 1 mg/Sodium Chloride 1,011.2 ml @ 125 mls/ hr DAILY@09 IVPB ; Start 02/13/19 at 15:00; Status UNV Sodium Chloride 1,000 ml @ 75 mls/hr [id number] IV ; Start 02/13/19 at 15:00; Status UNV NITIN CORTEZ February 13, 2019 14:35
[2019-02-13] MEDS: SOD CHLORIDE 0.45% 1,000 ML IV SCH (15:00)
[2019-02-13] MEDS ORDERED: MAGNESIUM SULFATE 1 GM/D5W 100 ML IVPB ONE (15:00)
[2019-02-13] MEDS ORDERED: morphine 2 MG INJ IV PRN (16:30)
[2019-02-13] MEDS: MULTIVITAMINS 10 ML, THIAMINE 100 MG, FOLIC ACID 1 MG in SOD CHLORIDE 0.9% 1,000 ML IVPB SCH (16:54)
[2019-02-13] MEDS: ATORVASTATIN 10 MG TAB PO SCH (20:36)
[2019-02-14] VITALS (12 sets, daily range): BP systolic 116–163; BP diastolic 69–106; PULSE 88–117; RESP 17–18
[2019-02-14] MEDS ORDERED: CHLORDIAZEPOXIDE 25 MG CAP PO SCH (02:30)
[2019-02-14] MEDS: SOD CHLORIDE 0.45% 1,000 ML IV SCH ×2 (05:09→17:40)
[2019-02-14] MEDS: PANTOPRAZOLE (EC) 40 MG TAB PO SCH (05:12)
[2019-02-14] MEDS: CHLORDIAZEPOXIDE 25 MG CAP PO SCH ×3 (08:48→21:26)
[2019-02-14] MEDS: ISOSORBIDE MONONITRATE(SR)30 MG TAB PO SCH (08:50)
[2019-02-14] MEDS: THIAMINE 100 MG TAB PO SCH (08:50)
[2019-02-14] MEDS: MULTIVITAMINS THERAPEUTIC TAB PO SCH (08:50)
[2019-02-14] MEDS: FOLIC ACID 1 MG TAB PO SCH (08:50)
[2019-02-14] MEDS: AMLODIPINE 10 MG TAB PO SCH (08:50)
[2019-02-14] MEDS: ARFORMOTEROL TARTRATE 15MCG/2 ML AMP INH SCH ×2 (09:39→19:38)
[2019-02-14] MEDS: BUDESONIDE (NEB) 0.5MG/2ML AMP INH SCH ×2 (09:40→19:38)
[2019-02-14] MEDS: HEPARIN 5,000 UNIT/1 ML VIAL SC SCH ×2 (10:27→21:36)
[2019-02-14] MEDS ORDERED: MAGNESIUM SULFATE 3 GM in DEXTROSE 5% 100 ML IVPB ONE (12:30)
[2019-02-14] MEDS: LORAZEPAM 2 MG INJ IV PRN ×2 (13:22→21:26)
[2019-02-14] MEDS: MULTIVITAMINS 10 ML, THIAMINE 100 MG, FOLIC ACID 1 MG in SOD CHLORIDE 0.9% 1,000 ML IVPB SCH (14:58)
[2019-02-14] MEDS: ATORVASTATIN 10 MG TAB PO SCH (21:25)
[2019-02-15] MEDS: SOD CHLORIDE 0.45% 1,000 ML IV SCH ×3 (00:01→21:13)
[2019-02-15 01:00] VITALS: BP 131/82; PULSE 88; RESP 17
[2019-02-15 02:27] VITALS: BP 137/86; PULSE 85; RESP 18
[2019-02-15] MEDS: PANTOPRAZOLE (EC) 40 MG TAB PO SCH (06:17)
[2019-02-15] MEDS: LORAZEPAM 2 MG INJ IV PRN (06:17)
[2019-02-15] MEDS: MULTIVITAMINS THERAPEUTIC TAB PO SCH (09:17)
[2019-02-15] MEDS: THIAMINE 100 MG TAB PO SCH (09:18)
[2019-02-15] MEDS: ISOSORBIDE MONONITRATE(SR)30 MG TAB PO SCH (09:18)
[2019-02-15] MEDS: AMLODIPINE 10 MG TAB PO SCH (09:18)
[2019-02-15] MEDS: FOLIC ACID 1 MG TAB PO SCH (09:18)
[2019-02-15] MEDS: HEPARIN 5,000 UNIT/1 ML VIAL SC SCH ×2 (09:19→22:56)
[2019-02-15 09:23] VITALS: BP 158/94; PULSE 95; RESP 19
[2019-02-15] MEDS: CHLORDIAZEPOXIDE 25 MG CAP PO SCH ×3 (09:24→23:04)
--- NOTE | 2019-02-15 10:02 | PN ---
Date/Time of Note Date/Time of Note DATE: 02/15/19 TIME: 10:00 Subjective Patient is quite lethargic. Received IV Ativan earlier for agitation Objective Vitals Vital Signs Date Temp Pulse Resp B/P (MAP) Pulse Ox O2 O2 Flow FiO2 Time Delivery Rate 02/15/19 97.8 95 19 158/94 99 Room Air 09:23 (115) 02/14/19 21 19:38 Intake and Output 02/14/19 02/14/19 02/15/19 1414:59 22:59 06:59 IntakeIntake Total 500 ml 2470 ml OutputOutput Total 2 ml 1 ml BalanceBalance 498 ml 2469 ml Clear to auscultation bilaterally Regular rate and rhythm Soft nontender nondistended normoactive bowel sounds No edema Moves all extremities Results Result Diagram: 02/14/19 0716 02/14/19 0615 Medications Medications Current Medications Nitroglycerin (Nitroglycerin (Sl Tab) 0.4 Mg) 1 tab Q5M UP TO 3 DOSES PRN SL .CHEST PAIN Last administered on 02/11/19 19:27; Admin Dose 1 TAB; Start 02/11/19 at 19:00 Multivitamins Therapeutic (Theragran) 1 tab DAILY PO Last administered on 02/15/19 09:17; Admin Dose 1 TAB; Start 02/12/19 at 09:00 Thiamine HCl (Vitamin B1) 200 mg DAILY PO Last administered on 02/15/19 09:18; Admin Dose 200 MG; Start 02/12/19 at 09:00; Stop 02/17/19 at 08:59 Folic Acid (Folic Acid) 1 mg DAILY PO Last administered on 02/15/19 09:18; Admin Dose 1 MG; Start 02/12/19 at 09:00 Albuterol (Ventolin Hfa) 2 puff Q4H RESP THERAPY PRN INH WHEEZING AND SOB; Start 02/11/19 at 22:30 Amlodipine Besylate (Norvasc) 10 mg DAILY PO Last administered on 02/15/19 09:18; Admin Dose 10 MG; Start 02/12/19 at 09:00 Isosorbide Mononitrate (Imdur) 30 mg DAILY PO Last administered on 02/15/19 09:18; Admin Dose 30 MG; Start 02/12/19 at 09:00 IV Flush (NS 3 ml) 3 ml PER PROTOCOL IV ; Start 02/11/19 at 20:30 Ondansetron HCl (Zofran Inj) 4 mg Q6H PRN IV NAUSEA/VOMITING; Start 02/11/19 at 20:30 Nitroglycerin (Nitroglycerin (Sl Tab) 0.4 Mg) 1 tab Q5M PRN SL .CHEST PAIN; Start 02/11/19 at 20:30 Acetaminophen (Tylenol Tab) 650 mg Q6H PRN PO .PAIN 1-3 OR TEMP; Start 02/11/19 at 20:30 Docusate Sodium (Colace) 100 mg Q12H PRN PO .CONSTIPATION; Start 02/11/19 at 20:30 Bisacodyl (Dulcolax) 5 mg DAILY PRN PO .CONSTIPATION; Start 02/11/19 at 20:30 Atorvastatin Calcium (Lipitor) 5 mg DAILY@21 PO Last administered on 02/14/19at 21:25; Admin Dose 5 MG; Start 02/11/19 at 22:45 Pantoprazole (Protonix Tab) 40 mg DAILY@06 PO Last administered on 02/15/19 06:17; Admin Dose 40 MG; Start 02/12/19 at 06:00 Hydralazine HCl (Apresoline) 10 mg Q4H PRN IV SBP > 170mmHg Last administered on 02/12/19 05:04; Admin Dose 10 MG; Start 02/12/19 at 05:00 Arformoterol Tartrate (Brovana (Neb)) 2 ml BID RESP THERAPY INH Last administered on 02/14/19at 19:38; Admin Dose 2 ML; Start 02/12/19 at 09:00 Budesonide (Pulmicort (Neb)) 0.5 mg BID RESP THERAPY INH Last administered on 02/14/19 19:38; Admin Dose 0.5 MG; Start 02/12/19 at 09:00 Chlordiazepoxide (Librium) 50 mg TID PO Last administered on 02/15/19 09:24; Admin Dose 50 MG; Start 02/13/19 at 13:00 Multivitamins 10 ml/Thiamine HCl 100 mg/Folic Acid 1 mg/Sodium Chloride 1,011.2 ml @ 125 mls/ hr DAILY@09 IVPB Last administered on 02/14/19at 14:58; Admin Dose 125 MLS/HR; Start 02/13/19 at 16:00 Sodium Chloride 1,000 ml @ 75 mls/hr [id number] IV Last administered on 02/15/19at 00:01; Admin Dose 75 MLS/HR; Start 02/13/19 at 15:00 Heparin Sodium (Porcine) (Heparin (5000 Units/1ml)) 5,000 unit Q12H SC Last administered on 02/15/19at 09:19; Admin Dose 5,000 UNIT; Start 02/13/19 at 22:00 VTE Prophylaxis Risk score (from Nsg)>0 risk: 3 SCD applied (from Ns): Yes Lines/Catheters IV Catheter Type: Saline Lock Berry in Place: No Assessment/Plan Assessment/Plan 73-year-old male with alcohol withdrawal Long history of alcohol abuse Altered mental status COPD Atypical chest pain Thrombocytopenia Continue current therapy Discontinue Ativan and morphine Physical therapy and evaluation Discharge planning SCOTTIE CHRIS MD February 15, 2019 10:01
[2019-02-15] MEDS: ARFORMOTEROL TARTRATE 15MCG/2 ML AMP INH SCH ×2 (12:13→20:23)
[2019-02-15] MEDS: BUDESONIDE (NEB) 0.5MG/2ML AMP INH SCH ×2 (12:13→20:23)
[2019-02-15] MEDS: MULTIVITAMINS 10 ML, THIAMINE 100 MG, FOLIC ACID 1 MG in SOD CHLORIDE 0.9% 1,000 ML IVPB SCH (12:59)
[2019-02-15] MEDS ORDERED: FLUMAZENIL 0.5 MG INJ IV ONE (16:00)
[2019-02-15 20:46] VITALS: BP 149/89; PULSE 88; RESP 20
[2019-02-15] MEDS: ATORVASTATIN 10 MG TAB PO SCH (22:56)
[2019-02-16 02:03] VITALS: BP 141/84; PULSE 90; RESP 20
[2019-02-16] MEDS: PANTOPRAZOLE (EC) 40 MG TAB PO SCH (06:00)
[2019-02-16] MEDS: BUDESONIDE (NEB) 0.5MG/2ML AMP INH SCH ×2 (07:59→19:52)
[2019-02-16] MEDS: ARFORMOTEROL TARTRATE 15MCG/2 ML AMP INH SCH ×2 (08:01→19:51)
[2019-02-16 08:28] VITALS: BP 140/85; RESP 18
[2019-02-16] MEDS: THIAMINE 100 MG TAB PO SCH (08:44)
[2019-02-16] MEDS: FOLIC ACID 1 MG TAB PO SCH (08:44)
[2019-02-16] MEDS: ISOSORBIDE MONONITRATE(SR)30 MG TAB PO SCH (08:44)
[2019-02-16] MEDS: AMLODIPINE 10 MG TAB PO SCH (08:44)
[2019-02-16] MEDS: MULTIVITAMINS THERAPEUTIC TAB PO SCH (08:44)
[2019-02-16] MEDS: CHLORDIAZEPOXIDE 25 MG CAP PO SCH ×3 (08:46→22:15)
[2019-02-16] MEDS: MULTIVITAMINS 10 ML, THIAMINE 100 MG, FOLIC ACID 1 MG in SOD CHLORIDE 0.9% 1,000 ML IVPB SCH (08:46)
[2019-02-16] MEDS: SOD CHLORIDE 0.45% 1,000 ML IV SCH (09:40)
[2019-02-16] MEDS ORDERED: CHLO25CA9 PO (10:03)
[2019-02-16] MEDS ORDERED: HEPA50002 SC (10:03)
[2019-02-16] MEDS ORDERED: DOCU-144 PO (10:03)
[2019-02-16] MEDS ORDERED: THIA100T56 PO (10:03)
[2019-02-16] MEDS ORDERED: MULTI PO (10:03)
[2019-02-16] MEDS ORDERED: ACET325T33 PO (10:03)
[2019-02-16] MEDS ORDERED: FOLI-49 PO (10:03)
[2019-02-16] MEDS: HEPARIN 5,000 UNIT/1 ML VIAL SC SCH ×2 (10:15→22:16)
[2019-02-16] MEDS ORDERED: MAGNESIUM SULFATE 4 GM/100 ML 100 ML IVPB ONE (11:00)
--- NOTE | 2019-02-16 13:26 | DS ---
DATE OF ADMISSION: 02/12/2019 DATE OF DISCHARGE: DISCHARGE DIAGNOSES: 1. A 73-year-old male with alcohol withdrawal. 2. Long history of alcohol abuse. 3. Atypical chest pain. 4. Altered mental status. 5. Chronic obstructive pulmonary disease. 6. Thrombocytopenia. HOSPITAL COURSE: A 73-year-old male with a long history of alcoholic abuse, presented to emergency room with atypical chest pain and altered mentation. Serum alcohol level was 287. The patient was started on benzodiazepines and banana bag. A 2D echo showed normal LV function with ejection fraction of 60%. He had recurrent chest pain prior to discharge and evaluated by cardiology. There was no need for further intervention. The patient admitted to drinking half a pint of [place] whiskey on daily basis. Hemoglobin was stable. The patient has thrombocytopenia and serum platelet was as low as 56,000. He is in a stable condition for transition to custodial facility. The patient will benefit from physical therapy. Librium will be tapered. MEDICATIONS ON DISCHARGE: 1. Albuterol sulfate. 2. Heparin. 3. Amlodipine. 4. Isosorbide. 5. Simvastatin. 6. Librium. 7. Symbicort. 8. Colace. 9. Omeprazole. 10. Folic acid. 11. Multivitamin. 12. Thiamine. Follow up with PCP in 1 to 2 weeks. Dictated By: SCOTTIE CORDOVA/MAGALI Conf#: [id number] DID#: [id number] CC: CHRISTEN LYNN MD; ARA ONTIVEROS MD;*EndCC* MTDD
[2019-02-16 14:00] VITALS: BP 135/78; PULSE 89; RESP 18
[2019-02-16] MEDS: NITROGLYCERIN (SL) 0.4 MG TAB SL PRN ×3 (18:54→19:17)
[2019-02-16 20:38] VITALS: BP 141/82; PULSE 88; RESP 20
[2019-02-16] MEDS: FAMOTIDINE 20 MG INJ IV SCH (22:15)
[2019-02-16] MEDS: ATORVASTATIN 10 MG TAB PO SCH (22:15)
[2019-02-17 02:35] VITALS: BP 152/77; PULSE 82; RESP 17
[2019-02-17] MEDS: ARFORMOTEROL TARTRATE 15MCG/2 ML AMP INH SCH (07:21)
[2019-02-17] MEDS: BUDESONIDE (NEB) 0.5MG/2ML AMP INH SCH (07:30)
[2019-02-17 07:52] VITALS: BP 150/87; PULSE 99; RESP 18
[2019-02-17] MEDS: CHLORDIAZEPOXIDE 25 MG CAP PO SCH (09:13)
[2019-02-17] MEDS: ISOSORBIDE MONONITRATE(SR)30 MG TAB PO SCH (09:15)
[2019-02-17] MEDS: MULTIVITAMINS THERAPEUTIC TAB PO SCH (09:15)
[2019-02-17] MEDS: FOLIC ACID 1 MG TAB PO SCH (09:15)
[2019-02-17] MEDS: AMLODIPINE 10 MG TAB PO SCH (09:17)
[2019-02-17] MEDS: FAMOTIDINE 20 MG INJ IV SCH (09:17)
--- NOTE | 2019-02-17 09:59 | PN ---
Date/Time of Note Date/Time of Note DATE: 02/17/19 TIME: 09:57 Subjective Patient complained of chest pain the night prior. He is lethargic and denies any chest pain Objective Vitals Vital Signs Date Temp Pulse Resp B/P (MAP) Pulse Ox O2 O2 Flow FiO2 Time Delivery Rate 02/17/19 98.5 99 18 150/87 99 Room Air 07:52 (108) 02/17/19 21 07:21 02/16/19 2.0 08:01 Intake and Output 02/16/19 02/16/19 02/17/19 1515:00 23:00 07:00 IntakeIntake Total 1610 ml 200 ml BalanceBalance 1610 ml 200 ml Clear to auscultation bilaterally Regular rate and rhythm Soft nontender nondistended normoactive bowel sounds No edema Nonfocal Results Result Diagram: 02/14/19 0716 02/14/19 0615 Medications Medications Current Medications Multivitamins Therapeutic (Theragran) 1 tab DAILY PO Last administered on 02/17/19 09:15; Admin Dose 1 TAB; Start 02/12/19 at 09:00 Folic Acid (Folic Acid) 1 mg DAILY PO Last administered on 02/17/19 09:15; Admin Dose 1 MG; Start 02/12/19 at 09:00 Albuterol (Ventolin Hfa) 2 puff Q4H RESP THERAPY PRN INH WHEEZING AND SOB; Start 02/11/19 at 22:30 Amlodipine Besylate (Norvasc) 10 mg DAILY PO Last administered on 02/17/19 09:17; Admin Dose 10 MG; Start 02/12/19 at 09:00 Isosorbide Mononitrate (Imdur) 30 mg DAILY PO Last administered on 02/17/19 09:15; Admin Dose 30 MG; Start 02/12/19 at 09:00 IV Flush (NS 3 ml) 3 ml PER PROTOCOL IV ; Start 02/11/19 at 20:30 Ondansetron HCl (Zofran Inj) 4 mg Q6H PRN IV NAUSEA/VOMITING; Start 02/11/19 at 20:30 Nitroglycerin (Nitroglycerin (Sl Tab) 0.4 Mg) 1 tab Q5M PRN SL .CHEST PAIN Last administered on 02/16/19 19:17; Admin Dose 1 TAB; Start 02/11/19 at 20:30 Acetaminophen (Tylenol Tab) 650 mg Q6H PRN PO .PAIN 1-3 OR TEMP; Start 02/11/19 at 20:30 Docusate Sodium (Colace) 100 mg Q12H PRN PO .CONSTIPATION; Start 02/11/19 at 20:30 Bisacodyl (Dulcolax) 5 mg DAILY PRN PO .CONSTIPATION; Start 02/11/19 at 20:30 Atorvastatin Calcium (Lipitor) 5 mg DAILY@21 PO Last administered on 02/16/19 22:15; Admin Dose 5 MG; Start 02/11/19 at 22:45 Hydralazine HCl (Apresoline) 10 mg Q4H PRN IV SBP > 170mmHg Last administered on 02/12/19at 05:04; Admin Dose 10 MG; Start 02/12/19 at 05:00 Arformoterol Tartrate (Brovana (Neb)) 2 ml BID RESP THERAPY INH Last administered on 02/17/19 07:21; Admin Dose 2 ML; Start 02/12/19 at 09:00 Budesonide (Pulmicort (Neb)) 0.5 mg BID RESP THERAPY INH Last administered on 02/17/19 07:30; Admin Dose 0.5 MG; Start 02/12/19 at 09:00 Chlordiazepoxide (Librium) 50 mg TID PO Last administered on 02/17/19 09:13; Admin Dose 50 MG; Start 02/13/19 at 13:00; Status Hold Heparin Sodium (Porcine) (Heparin (5000 Units/1ml)) 5,000 unit Q12H SC Last administered on 02/16/19at 22:16; Admin Dose 5,000 UNIT; Start 02/13/19 at 22:00 Famotidine (Pepcid Iv) 20 mg BID IV Last administered on 02/17/19 09:17; Admin Dose 20 MG; Start 02/16/19 at 21:00 Flumazenil (Romazicon) 0.5 mg ONCE ONCE IV ; Start 02/17/19 at 10:00; Stop 02/17/19 at 10:01 VTE Prophylaxis Risk score (from Nsg)>0 risk: 7 SCD applied (from Nsg): Yes Lines/Catheters IV Catheter Type: Saline Lock Berry in Place: No Assessment/Plan Assessment/Plan 73-year-old male with alcohol withdrawal Altered mental status due to Librium Recurrent chest pain. Patient had a normal echo. Serial troponins are unremarkable Hypertension COPD Discontinue Librium Romazicon x1 dose Cardiology consultation was requested Discharge planning to SNF once cleared by cardiology SCOTTIE CHRIS MD February 17, 2019 09:59
[2019-02-17] MEDS ORDERED: PANTOPRAZOLE (EC) 40 MG TAB PO SCH (10:00)
[2019-02-17] MEDS ORDERED: FLUMAZENIL 0.5 MG INJ IV ONE (10:00)
[2019-02-17] MEDS ORDERED: PANT40TA3 PO (10:03)
[2019-02-17] MEDS: HEPARIN 5,000 UNIT/1 ML VIAL SC SCH (10:39)
[2019-02-17] MEDS: NITROGLYCERIN (SL) 0.4 MG TAB SL PRN (10:59)
[2019-02-17 11:57] VITALS: BP 128/76; PULSE 99; RESP 18
--- NOTE | 2019-02-17 12:21 | CONS ---
Assessment/Plan Assessment/Plan Hospital Course (Demo Recall) Sharp left-sided chest pain, resolved Preserved left ventricular ejection fraction Alcohol intoxication Hypertension Dyslipidemia -Patient presented with alcohol intoxication and left-sided sharp chest pain. He had a repeat episode yesterday evening. Pain is worse with left arm movements and palpation of the chest wall. -Serial cardiac enzymes remain negative, ECG with no significant ischemic abnormalities -His symptoms, as mentioned, has since resolved. Symptoms do not appear secondary to cardiac ischemia. No further inpatient cardiac work-up needed at the current time. Consultation Date/Type/Reason Admit Date/Time Type of Consult Cardiology Reason for Consultation Chest pain Date/Time of Note DATE: 02/17/19 TIME: 12:17 Hx of Present Illness This is a 73-year-old male was admitted with left-sided sharp chest pain and alcohol intoxication. Patient was planned to for transfer to group home facility and this was held secondary to chest pain last night. Patient states chest pain is sharp, worse with moving his left arm and pushing on his chest. Denies any current chest pain. Denies shortness of breath when he had chest pain. He denies chest pain usually when he is active. He is not sure if he has any cardiac history but he denies any history of heart attack or cardiac procedures. 12 point review of systems was performed with all pertinent positives and negatives mentioned above and all else is negative Past Medical History Medical History: high cholesterol, hypertension Home Meds Active Scripts Pantoprazole* (Protonix*) 40 Mg Tablet.dr, 40 MG PO DAILY for 30 Days, TAB Prov:SCOTTIE CHRIS MD 02/17/19 Chlordiazepoxide* (Chlordiazepoxide*) 25 Mg Capsule, 25 MG PO TID for 5 Days, CAP Prov:SCOTTIE CHRIS MD 02/16/19 Thiamine* (Vitamin B-1*) 100 Mg Tablet, 200 MG PO DAILY for 30 Days, TAB Prov:SCOTTIE CHRIS MD 02/16/19 Multivitamins* (Theragran*) 1 Tab Tab, 1 TAB PO DAILY for 30 Days, TAB Prov:SCOTTIE CHRIS MD 02/16/19 Folic Acid* (Folic Acid*) 1 Mg Tablet, 1 MG PO DAILY for 30 Days, TAB Prov:SCOTTIE CHRIS MD 02/16/19 Docusate Sodium* (Colace*) 100 Mg Capsule, 100 MG PO Q12H PRN for .CONSTIPATION for 10 Days, CAP Prov:SCOTTIE CHRIS MD 02/16/19 Acetaminophen* (Tylenol*) 325 Mg Tablet, 650 MG PO Q6H PRN for .PAIN 1-3 OR TEMP for 10 Days, TAB Prov:SCOTTIE CHRIS MD 02/16/19 Heparin Sodium,Porcine (Heparin Sodium) 5,000 Unit/1 Ml Vial, 5000 UNIT SC Q12H for 10 Days, VIAL Prov:SCOTTIE CHRIS MD 02/16/19 Isosorbide Mononitrate* (Isosorbide Mononitrate*) 30 Mg Tab.er.24h, 30 MG PO DAILY for 30 Days, 2 Refills Prov:HAYDERROHITEDITH Chappell 06/19/16 Amlodipine Besylate* (Amlodipine Besylate*) 10 Mg Tablet, 10 MG PO DAILY for 30 Days, TAB 1 Refill Prov:KENIA SINGLETARY 06/19/16 Reported Medications Simvastatin* (Zocor*) 10 Mg Tablet, 10 MG PO HS, TAB 07/10/15 Budesonide-Formoterol Fumarate* (Symbicort*) 160-4.5 Hfa.aer.ad, 2 PUFF IH BID, INH 07/10/15 Albuterol Sulfate* (Albuterol Sulfate* HFA) 8.5 Gm Hfa.aer.ad, 2 PUFF IH Q4H PRN for WHEEZING AND SOB, EA 07/10/15 Omeprazole* (Omeprazole*) 20 Mg Capsule.dr, 20 MG PO DAILY, CAP 07/10/15 Medications Current Medications Multivitamins Therapeutic (Theragran) 1 tab DAILY PO Last administered on 02/17/19at 09:15; Admin Dose 1 TAB; Start 02/12/19 at 09:00 Folic Acid (Folic Acid) 1 mg DAILY PO Last administered on 02/17/19at 09:15; Admin Dose 1 MG; Start 02/12/19 at 09:00 Albuterol (Ventolin Hfa) 2 puff Q4H RESP THERAPY PRN INH WHEEZING AND SOB; Start 02/11/19 at 22:30 Amlodipine Besylate (Norvasc) 10 mg DAILY PO Last administered on 02/17/19at 09:17; Admin Dose 10 MG; Start 02/12/19 at 09:00 Isosorbide Mononitrate (Imdur) 30 mg DAILY PO Last administered on 02/17/19 09:15; Admin Dose 30 MG; Start 02/12/19 at 09:00 IV Flush (NS 3 ml) 3 ml PER PROTOCOL IV ; Start 02/11/19 at 20:30 Ondansetron HCl (Zofran Inj) 4 mg Q6H PRN IV NAUSEA/VOMITING; Start 02/11/19 at 20:30 Nitroglycerin (Nitroglycerin (Sl Tab) 0.4 Mg) 1 tab Q5M PRN SL .CHEST PAIN Last administered on 02/17/19 10:59; Admin Dose 1 TAB; Start 02/11/19 at 20:30 Acetaminophen (Tylenol Tab) 650 mg Q6H PRN PO .PAIN 1-3 OR TEMP; Start 02/11/19 at 20:30 Docusate Sodium (Colace) 100 mg Q12H PRN PO .CONSTIPATION; Start 02/11/19 at 20:30 Bisacodyl (Dulcolax) 5 mg DAILY PRN PO .CONSTIPATION; Start 02/11/19 at 20:30 Atorvastatin Calcium (Lipitor) 5 mg DAILY@21 PO Last administered on 02/16/19 22:15; Admin Dose 5 MG; Start 02/11/19 at 22:45 Hydralazine HCl (Apresoline) 10 mg Q4H PRN IV SBP > 170mmHg Last administered on 02/12/19 05:04; Admin Dose 10 MG; Start 02/12/19 at 05:00 Arformoterol Tartrate (Brovana (Neb)) 2 ml BID RESP THERAPY INH Last administered on 02/17/19 07:21; Admin Dose 2 ML; Start 02/12/19 at 09:00 Budesonide (Pulmicort (Neb)) 0.5 mg BID RESP THERAPY INH Last administered on 02/17/19 07:30; Admin Dose 0.5 MG; Start 02/12/19 at 09:00 Chlordiazepoxide (Librium) 50 mg TID PO Last administered on 02/17/19 09:13; Admin Dose 50 MG; Start 02/13/19 at 13:00; Status Hold Heparin Sodium (Porcine) (Heparin (5000 Units/1ml)) 5,000 unit Q12H SC Last administered on 5/24/19at 10:39; Admin Dose 5,000 UNIT; Start 02/13/19 at 22:00 Famotidine (Pepcid Iv) 20 mg BID IV Last administered on 02/17/19 09:17; Admin Dose 20 MG; Start 02/16/19 at 21:00 Pantoprazole (Protonix Tab) 40 mg DAILY@06 PO Last administered on 02/17/19at 10:59; Admin Dose 40 MG; Start 02/17/19 at 10:00 Allergies: Coded Allergies: Penicillins (Verified Allergy, Severe, ANAPHYLAXIS, 09/14/16) Past Surgical History Past Surgical Hx: no surgical history Social History Alcohol Use: heavy Smoking Status: Unknown if ever smoked Drug Use: none Exam/Review of Systems Vital Signs Vitals Vital Signs Date Temp Pulse Resp B/P (MAP) Pulse Ox O2 O2 Flow FiO2 Time Delivery Rate 02/17/19 98.1 99 18 128/76 99 Room Air 11:57 (93) 02/17/19 21 07:21 02/16/19 2.0 08:01 Intake and Output 02/16/19 02/16/19 02/17/19 1515:00 23:00 07:00 IntakeIntake Total 1610 ml 200 ml BalanceBalance 1610 ml 200 ml Exam Constitutional: alert (Following commands, no apparent distress, requires redirection and with history taking, no apparent distress) Head: normocephalic Respiratory: other (Coarse breath sounds bilaterally, no wheezing) Cardiovascular: regular rate and rhythm (S1-S2 heard, no murmurs appreciated) Gastrointestinal: soft, non-tender, bowel sounds Musculoskeletal: other (Pain with palpation of left side of chest wall) Extremities: other (No edema) Labs Result Diagram: 02/14/19 0716 02/14/19 0615 Results 24hrs Laboratory Tests Test 02/16/19 19:40 02/17/19 04:54 Troponin I < 0.012 0.012 Imaging Imaging ECG with sinus rhythm, normal QRS duration, no significant ischemic ST abnormalities Medications Medications Current Medications Multivitamins Therapeutic (Theragran) 1 tab DAILY PO Last administered on 02/17/19 09:15; Admin Dose 1 TAB; Start 02/12/19 at 09:00 Folic Acid (Folic Acid) 1 mg DAILY PO Last administered on 02/17/19at 09:15; Admin Dose 1 MG; Start 02/12/19 at 09:00 Albuterol (Ventolin Hfa) 2 puff Q4H RESP THERAPY PRN INH WHEEZING AND SOB; S tart 02/11/19 at 22:30 Amlodipine Besylate (Norvasc) 10 mg DAILY PO Last administered on 02/17/19 0 9:17; Admin Dose 10 MG; Start 02/12/19 at 09:00 Isosorbide Mononitrate (Imdur) 30 mg DAILY PO Last administered on 02/17/19 09:15; Admin Dose 30 MG; Start 02/12/19 at 09:00 IV Flush (NS 3 ml) 3 ml PER PROTOCOL IV ; Start 02/11/19 at 20:30 Ondansetron HCl (Zofran Inj) 4 mg Q6H PRN IV NAUSEA/VOMITING; Start 02/11/19 at 20:30 Nitroglycerin (Nitroglycerin (Sl Tab) 0.4 Mg) 1 tab Q5M PRN SL .CHEST PAIN Last administered on 02/17/19 10:59; Admin Dose 1 TAB; Start 02/11/19 at 20:30 Acetaminophen (Tylenol Tab) 650 mg Q6H PRN PO .PAIN 1-3 OR TEMP; Start 02/11/19 at 20:30 Docusate Sodium (Colace) 100 mg Q12H PRN PO .CONSTIPATION; Start 02/11/19 at 20:30 Bisacodyl (Dulcolax) 5 mg DAILY PRN PO .CONSTIPATION; Start 02/11/19 at 20:30 Atorvastatin Calcium (Lipitor) 5 mg DAILY@21 PO Last administered on 02/16/19 22:15; Admin Dose 5 MG; Start 02/11/19 at 22:45 Hydralazine HCl (Apresoline) 10 mg Q4H PRN IV SBP > 170mmHg Last administered on 02/12/19 05:04; Admin Dose 10 MG; Start 02/12/19 at 05:00 Arformoterol Tartrate (Brovana (Neb)) 2 ml BID RESP THERAPY INH Last administered on 02/17/19 07:21; Admin Dose 2 ML; Start 02/12/19 at 09:00 Budesonide (Pulmicort (Neb)) 0.5 mg BID RESP THERAPY INH Last administered on 02/17/19 07:30; Admin Dose 0.5 MG; Start 02/12/19 at 09:00 Chlordiazepoxide (Librium) 50 mg TID PO Last administered on 02/17/19 09:13; Admin Dose 50 MG; Start 02/13/19 at 13:00; Status Hold Heparin Sodium (Porcine) (Heparin (5000 Units/1ml)) 5,000 unit Q12H SC Last administered on 02/17/19 10:39; Admin Dose 5,000 UNIT; Start 02/13/19 at 22:00 Famotidine (Pepcid Iv) 20 mg BID IV Last administered on 02/17/19 09:17; Admin Dose 20 MG; Start 02/16/19 at 21:00 Pantoprazole (Protonix Tab) 40 mg DAILY@06 PO Last administered on 02/17/19 10:59; Admin Dose 40 MG; Start 02/17/19 at 10:00 Catalino Branch DO February 17, 2019 12:21
--- NOTE | 2019-02-17 18:53 | RADRPT ---
Vent Rate: 98 bpm RR Interval: 612 msec ME Interval: 124 msec QRS Duration: 98 msec QT Interval: 356 msec QTC Interval: 455 msec P-R-T Moran: 71 - 36 - 37 degrees Sinus rhythm...normal P axis, V-rate 50- 99 Ventricular premature complex...V complex w/ short R-R interval Electronically Signed By: Nilton Azul
== END 2019-02-17 19:20 | DRG 897 ==
LOC: E/R 18:52 → TEL 20:11 → CANRESERV 20:55 → OBSVTOIN 02-12 13:04 → TEL 02-13 15:18 → MS1 02-15 00:49
PROVIDERS: ADMIT Family Medicine; ATTEND Hospitalist
DX: F10.239 Alcohol dependence with withdrawal, unspecified (principal); R07.89 Other chest pain; F10.229 Alcohol dependence with intoxication, unspecified; Y90.8 Blood alcohol level of 240 mg/100 ml or more; I10 Essential (primary) hypertension; K21.9 Gastro-esophageal reflux disease without esophagitis; J44.9 Chronic obstructive pulmonary disease, unspecified; D69.6 Thrombocytopenia, unspecified; Z72.0 Tobacco use; E78.5 Hyperlipidemia, unspecified
CPT/HCPCS: 36415; 71045; 80048; 80053; 80061; 80307; 82550; 82553; 82607; 82746; 83036; 83690; 83735; 84100; 84443; 84484; 85025; 93005; 93306; 94640; 94664; 97110; 97116; 97161; 97530; G0378; J0360; J1644; J2060; J2270; J3411; J3475; J7030; J7040